=== PATIENT | female | born 1985 | race African-American/Black ===

== ENCOUNTER 2016-07-15 17:31 | Emergency (ER) | payer SELFPAY ==
[~2016-07-15] VITALS: Ht 160 cm; Wt 80.7 kg
[~2016-07-15 17:31] MED LIST: ABILIFY; ACHD5005 PO; ACYC200C PO; ACYC30OI TP; AGM875T PO; ALBU0.8322 IH; ALBU8.5H2 IH; AMOX500C2 PO; AMOX875T2 PO; ASEN5TAB7 SL; AZIT-21 PO; B12; BUTA1CAP39 PO; BUTA1CAP45 PO; BUTA1TAB46 PO; CEPH500C PO; CLIN300C11 PO; CLON0.5T3 PO; CODE-54 PO; CRS350T PO; CYCLOBENZAPR; DIAZ-345 PO; DIAZ10TA PO; DICL75TA2 PO; DIPH25CA79 PO; FRS325T PO; HYDR-1231 PO; HYDR-2890 PO; HYDR-3456 PO; HYDR-3714 PO; HYDR-3820 PO; HYDR-757 PO; HYDR1CAP2 PO; HYDR1TAB PO; HYDR473S16 PO; HYDR50CA PO; LATUDA; LIDO15SO2 MM; LURA20TA PO; LURA40TA PO; METH4TAB PO; MMT17NA NS; MUPI15CR11 TP; MUPI1OIN6 TP; OLN10T PO; ONDA-42 SL; ONDA4TAB8 PO; OXYC-188 PO; PANT40TA2 PO; PENI500T PO; PREN-102 PO; PREN1TAB39 PO; PREN1TAB71 PO; PRENATAL VITAMINS; PSEU120T16 PO; SERT50TA2 PO; SMTR50T PO; SULF1TAB35 PO; SULF1TAB38 PO; TR1O15 TOP; TR1O15 TP; TRAM-42 PO; TRAM50TA2 PO; TRIA16.5 NS; TRM50T PO; VALA10004 PO; [UNRECOGNIZED DRUG - CODE] PO
--- NOTE | 2016-07-15 18:23 | ED General ---
General Chief Complaint: General Problems/Pain Stated Complaint: POSSIBLE SPIDER BITE,SOA,DIFFICULTY SWALLOWING Nursing Triage Note: AMB TO ROOM C/O SPIDER BITE,SORE THROAT Nursing Sepsis Screen: No Definite Risk Source of Information: Patient, Other (friend) Exam Limitations: Other (drowsy and sedated) History of Present Illness Time Seen by Provider: 18:03 Initial Comments 30 yo female patient presents to the ED with c/o sore throat and possible spider bite. patient states she was recently incarcerated and noticed having a "spider bite" on the back x5 days. Tried "squeezing it at home and got a little bit of green fluid." States another inmate had strep throat while she was incarcerated. Patient is very drowsy and sedated, but is awake. Decreased rate of speech. Patient states she took 25 mg of benadryl at a friend's house and this is causing her to be sleepy. Timing/Duration: 4-5 Days, Getting Worse Modifying Factors: worse with Other (worse with palpation) Allergies and Home Medications Allergies Coded Allergies: ibuprofen (Unverified Allergy, Unknown, STOMACH PAIN, VOMITING, RASH IN THROAT, 07/19/14) shellfish derived (Verified Allergy, Unknown, 10/19/12) Home Medications Acyclovir 30 Gm Oint #1 30 GM TP Q4H Prescribed by: GENIA VENEGAS on 03/24/16106 Butalb/Acetaminophen/Caffeine 1 Each Capsule #10 1 EACH PO Q6H PRN PRN HEADACHE Prescribed by: OTILIO CORTES on 02/17/16 1425 Cephalexin 500 Mg Capsule #21 500 MG PO TID Prescribed by: SCOTTY MARQUES on 03/20/16 1409 Cephalexin 500 Mg Capsule #21 500 MG PO TID Prescribed by: OTILIO CORTES on 07/15/16 1844 Diclofenac Sodium 75 Mg Tablet.dr 75 MG PO DAILY (Reported) Hydrocodone/Acetaminophen 1 Each Tablet 1 EACH PO Q6H PRN PRN PAIN (Reported) Methylprednisolone 4 Mg Tab.ds.pk #1 4 MG PO UD Prescribed by: GENIA VENEGAS on 03/24/16106 Mupirocin 1 Gm Oin.pf.winston #22 1 GM TP TID Prescribed by: GENIA VENEGAS on 03/24/16106 Mupirocin Calcium 15 Gm Cream..g. #1 15 GM TP BID Prescribed by: SCOTTY MARQUES on 03/20/16 140 Sulfamethoxazole/Trimethoprim 1 Each Tablet #20 1 EACH PO BID Prescribed by: SCOTTY MARQUES on 03/20/16 1409 Sulfamethoxazole/Trimethoprim 1 Each Tablet #14 1 EACH PO BID Prescribed by: OTILIO CORTES on 07/15/16 1844 Valacyclovir HCl 1,000 Mg Tablet #30 1,000 MG PO TID Prescribed by: GENIA VENEGAS on 03/24/16 0107 Constitutional: No chills, No diaphoresis, No fever, No malaise EENTM: nose congestion throat painNo mouth pain, No mouth swelling, No nose pain, No throat swelling Respiratory: cough phlegmNo short of breath, No stridor, No wheezing Cardiovascular: no symptoms reported Gastrointestinal: No abdominal pain, No constipation, No diarrhea, loss of appetite nauseaNo vomiting Genitourinary: no symptoms reported Musculoskeletal: no symptoms reported Skin: see HPI change in color (erythema rt mid back) lesions (possible spider bite of the back) Psychiatric/Neurological: Denies Headache, Denies Numbness, Denies Paresthesia , Denies Tingling, Denies Weakness All Other Systems Reviewed Negative Unless Noted: Yes (Negative excepted noted.) Past Luzsnzm-Hixifb-Xozlnv Hx Patient Social History Alcohol Use: Denies Use Recreational Drug Use: No (tobacco occ) Smoking Status: Current Everyday Smoker Type Used: Cigarettes Former Smoker/When Quit: May 08, 2012 Recent Foreign Travel: No Contact w/Someone Who Travel: No Recent Infectious Disease Expo: No Recent Hopitalizations: No Immunizations Up To Date Tetanus Booster (TDap): Less than 5yrs (2012) Date of Influenza Vaccine: Mar 08, 2015 Seasonal Allergies Seasonal Allergies: Yes Surgeries HX Surgeries: No Respiratory Hx Respiratory Disorders: Yes Respiratory Disorders: Asthma Cardiovascular Hx Cardiac Disorders: No Neurological Hx Neurological Disorders: Yes Neurological Disorders: Headaches /Migraines Reproductive System Hx Reproductive Disorders: No Female Reproductive Disorders: Denies Genitourinary Hx Genitourinary Disorders: No Gastrointestinal Hx Gastrointestinal Disorders: No Musculoskeletal Hx Musculoskeletal Disorders: Yes (carpal tunnel syndrome bilaterally) Endocrine Hx Endocrine Disorders: No HEENT HX ENT Disorders: Yes (CHRONIC DENTAL ISSUES) Cancer Hx Cancer: No Psychosocial Hx Psychiatric Problems: Yes Behavioral Health Disorders: Anxiety, Depression Integumentary HX Skin/Integumentary Disorder: Yes Skin/Integumentary Disorders: Eczema Blood Transfusions Hx Blood Disorders: No Reviewed Nursing Assessment Reviewed/Agree w Nursing PMH: Yes Family Medical History Significant Family History: No Pertinent Family Hx Family Medial History: Patient reports no known family medical history. Physical Exam Vital Signs Vital Sign - Last 12Hours 07/15/16 17:33 Temp 98.2 Pulse 93 Resp 18 B/P 142/111 Capillary Refill : Less Than 3 Seconds General Appearance: No Apparent Distress WD/WN Other (awake, but drowsy and sedated. decreased rate of speech.(patient reports this is due to benadryl 25 mg taken at a friend's house)) HEENT: PERRL/EOMI TMs Normal Pharyngeal ErythemaNo Tonsillar Exudate, Tonsillar Enlargement Other ((+) nasal congestion) Neck: Full Range of Motion Non Tender Supple Lymphadenopathy (L) (anterior cervical lymphadenopathy.) Lymphadenopathy (R) (anterior cervical lymphadenopathy.) Respiratory: Lungs Clear Normal Breath Sounds No Respiratory Distress Cardiovascular: Regular Rate, Rhythm No Murmur Gastrointestinal: Normal Bowel Sounds Non Tender SoftNo Distended Back: Other (1x2 cm area of erythema rt low back with central scab. minimal induration noted. no active bleeding or drainage. no fluctuance noted.) Extremity: Normal Capillary Refill Normal Inspection No Pedal Edema Neurologic/Psychiatric: Oriented x3 Normal Mood/Affect Other (awake, but drowsy and sedated. decreased rate of speech.(patient reports this is due to benadryl 25 mg taken at a friend's house)) Skin: Normal Color Warm/Dry Other (1x2 cm area of erythema rt low back with central scab. minimal induration noted. no active bleeding or drainage. no fluctuance noted.) Progress/Results/Core Measures Results/Orders My Orders Orders-OTILIO CORTES Hydrocodone/Apap 5/325 Tablet (Lortab 5 (07/15/16 18:39) Vital Signs/I&O Vital Sign - Last 12Hours 07/15/16 17:33 Temp 98.2 Pulse 93 Resp 18 B/P 142/111 Blood Pressure Mean: 121 Departure Communication Progress Notes patient seen and evaluated. plan for dsch to home with bactrim ds for cellulitis of the back and keflex for pharyngitis. Patient requesting a Rx for pain medication to be sent home with her. Patient instructed to f/u with [facility] for pain medication prescriptions. Patient given 1 dose of lortab in the ED prior to [facility]. Impression Impression: Primary Impression: Cellulitis of lower back Additional Impression: Pharyngitis Qualified Code: J02.9 - Acute pharyngitis, unspecified Disposition: HOME, SELF-CARE Condition: Improved Departure-Patient Inst. Decision time for Depature: 18:42 Referrals: [facility] (PCP/Family) Primary Care Physician Patient Instructions: Cellulitis (Skin Infection), Adult (DC), Strep Throat (DC ) Add. Discharge Instructions: All discharge instructions reviewed with patient and/or family. Voiced understanding. Medications as instructed. Tylenol extra strength over-the- counter as directed for pain. Follow-up with your family practitioner for recheck as an outpatient and for all pain medication prescriptions. Ice packs or a heating pad as needed for pain. Shower with antibacterial soap. Salt water gargles as needed. Throat lozenges or throat sprays [id number] as needed for throat pain. Return to the emergency department for worsened symptoms or any other concerns. Scripts Cephalexin 500 Mg [id number] Mg PO TID #21 CAP Ref 0 Prov:OTILIO CORTES 07/15/16 Sulfamethoxazole/Trimethoprim (Bactrim Ds Tablet)1 Each Tablet1 Each PO BID #14 TAB Ref 0 Prov:OTILIO CORTES 07/15/16 Copy Copies To 1: JOZEF ROSARIO GRETCHEN L PA Jul 15, 2016 18:23
[2016-07-15] MEDS ORDERED: HYDROcodone/APAP 5 MG/325 MG (LORTAB) TAB PO STA (18:39)
[2016-07-15] MEDS ORDERED: SULF1TAB35 PO (18:44)
[2016-07-15] MEDS ORDERED: CEPH500C PO (18:44)
[2016-07-15 19:00] VITALS: BP 145/100
== END 2016-07-15 19:00 | disposition home or self-care (01) ==
LOC: EDUNIT# 17:31 → ER 17:33
DX: L03.312 Cellulitis of back [any part except buttock and flank] (principal); R59.0 Localized enlarged lymph nodes; J02.9 Acute pharyngitis, unspecified; F17.210 Nicotine dependence, cigarettes, uncomplicated
CPT/HCPCS: 99281

== ENCOUNTER 2016-07-26 18:23 | Emergency (ER) | payer SELFPAY ==
[~2016-07-26] VITALS: Ht 160 cm; Wt 122.5 kg
[2016-07-26] MEDS ORDERED: TETRACAINE 0.5% OPHTH SOLN 5 ML BTL OU STA (20:35)
--- NOTE | 2016-07-26 20:43 | ED General ---
General Chief Complaint: Oral/Throat Problems Stated Complaint: COUGH/SORE THROAT Nursing Triage Note: Pt. advised she has had a sore throat that has become progressively worse over the past several days. She advises difficulty swallowing and states she has not been able to eat anything. Nursing Sepsis Screen: Possible Sepsis Risk Source of Information: Patient Exam Limitations: No Limitations History of Present Illness Time Seen by Provider: 19:22 Initial Comments This 31-year-old woman presents to the emergency room complaining of sore throat , cough, migraine, and pleuritic chest pain for about 3 days. She states she hasn't been able to eat because of throat pain. Rapid flu and strep tests were negative. There is an incidental finding of a blue foreign object in the right ear canal. Patient also notes that she has new lower extremity edema and calf pain in the left leg. Allergies and Home Medications Allergies Coded Allergies: ibuprofen (Unverified Allergy, Unknown, STOMACH PAIN, VOMITING, RASH IN THROAT, 07/19/14) shellfish derived (Verified Allergy, Unknown, 10/19/12) Home Medications Acyclovir 30 Gm Oint #1 30 GM TP Q4H Prescribed by: GENIA VENEGAS on 03/24/16106 Amoxicillin 500 Mg Capsule #40 1,000 MG PO BID Prescribed by: MARTHA MEYERS on 07/27/16 0419 Butalb/Acetaminophen/Caffeine 1 Each Capsule #10 1 EACH PO Q6H PRN PRN HEADACHE Prescribed by: OTILIO CORTES on 02/17/16 1425 Cephalexin 500 Mg Capsule #21 500 MG PO TID Prescribed by: SCOTTY MARQUES on 03/20/16 1409 Cephalexin 500 Mg Capsule #21 500 MG PO TID Prescribed by: OTILIO CORTES on 07/15/16 1844 Diclofenac Sodium 75 Mg Tablet.dr 75 MG PO DAILY (Reported) Hydrocodone/Acetaminophen 1 Each Tablet 1 EACH PO Q6H PRN PRN PAIN (Reported) Methylprednisolone 4 Mg Tab.ds.pk #1 4 MG PO UD Prescribed by: GENIA VENEGAS on 03/24/16106 Mupirocin 1 Gm Oin.pf.winston #22 1 GM TP TID Prescribed by: GENIA VENEGAS on 03/24/16106 Mupirocin Calcium 15 Gm Cream..g. #1 15 GM TP BID Prescribed by: SCOTTY MARQUES on 03/20/16 140 Sulfamethoxazole/Trimethoprim 1 Each Tablet #20 1 EACH PO BID Prescribed by: SCOTTY MARQUES on 03/20/16 140 Sulfamethoxazole/Trimethoprim 1 Each Tablet #14 1 EACH PO BID Prescribed by: OTILIO CORTES on 07/15/16 184 Tramadol HCl 50 Mg Tablet #10 50 MG PO Q6H PRN PRN PAIN Prescribed by: MARTHA MEYERS on 07/27/16 0419 Valacyclovir HCl 1,000 Mg Tablet #30 1,000 MG PO TID Prescribed by: GENIA VENEGAS on 03/24/16 0107 Constitutional: no symptoms reported EENTM: see HPI Respiratory: see HPI Cardiovascular: no symptoms reported Gastrointestinal: see HPI Genitourinary: no symptoms reported : No Musculoskeletal: muscle pain Skin: no symptoms reported Psychiatric/Neurological: No Symptoms Reported Hematologic/Lymphatic: No Symptoms Reported Past Wbqhuwb-Oedxmg-Bauway Hx Patient Social History Type Used: Cigarettes Former Smoker/When Quit: May 08, 2012 Recent Foreign Travel: No Contact w/Someone Who Travel: No Recent Infectious Disease Expo: No Recent Hopitalizations: No Immunizations Up To Date Tetanus Booster (TDap): Less than 5yrs Date of Influenza Vaccine: Mar 08, 2015 Seasonal Allergies Seasonal Allergies: Yes Surgeries HX Surgeries: No Respiratory Hx Respiratory Disorders: Yes Respiratory Disorders: Asthma Cardiovascular Hx Cardiac Disorders: No Neurological Hx Neurological Disorders: Yes Neurological Disorders: Headaches /Migraines Reproductive System Hx Reproductive Disorders: No Female Reproductive Disorders: Denies Genitourinary Hx Genitourinary Disorders: No Gastrointestinal Hx Gastrointestinal Disorders: No Musculoskeletal Hx Musculoskeletal Disorders: Yes (carpal tunnel syndrome bilaterally) Endocrine Hx Endocrine Disorders: No HEENT HX ENT Disorders: Yes (CHRONIC DENTAL ISSUES) Cancer Hx Cancer: No Psychosocial Hx Psychiatric Problems: Yes Behavioral Health Disorders: Anxiety, Depression Integumentary HX Skin/Integumentary Disorder: Yes Skin/Integumentary Disorders: Eczema Blood Transfusions Hx Blood Disorders: No Family Medical History Significant Family History: Cancer (brain tumor) Family Medial History: Patient reports no known family medical history. Physical Exam Vital Signs Vital Sign - Last 12Hours 07/26/16 19:00 Temp 99.4 Pulse 100 Resp 16 B/P 171/112 Pulse Ox 98 O2 Delivery Room Air Capillary Refill : Less Than 3 Seconds General Appearance: WD/WN Mild Distress HEENT: PERRL/EOMI Normal ENT Inspection Pharynx Normal TM Abnormal (R) (blue foreign body in the ear canal) Neck: Normal Inspection Supple Respiratory: Chest Non Tender Lungs Clear Normal Breath Sounds No Accessory Muscle Use No Respiratory Distress Cardiovascular: Regular Rate, Rhythm No Edema No Murmur Gastrointestinal: Normal Bowel Sounds Non Tender Soft Back: Normal Inspection Extremity: Other (left lower extremity with moderate pitting edema and tenderness in the calf. Right lower extremity shows exhibited a skilled changes.) Neurologic/Psychiatric: Alert Oriented x3 No Motor/Sensory Deficits Normal Mood/Affect signaler II-XII Norm as Tested Skin: Normal Color Warm/Dry Rash (eczema) Additional Procedures : Progress Right ear was anesthetized with tetracaine. Under direct visualization the foreign body which has the appearance of earplug tips was removed with alligator forceps. Patient tolerated the procedure quite well. Progress/Results/Core Measures Results/Orders Lab Results Laboratory Tests Test 07/26/16 18:57 07/26/16 20:50 Range/Units Group A Streptococcus Screen NEGATIVE NEGATIVE Anion Gap 9 5-14 MMOL/L BUN/Creatinine Ratio 13 Basophils # (Auto) 0.0 0.0-0.1 10^3/uL Basophils (%) (Auto) 1 0-10 % Blood Urea Nitrogen 10 7-18 MG/DL Calcium Level 9.0 8.5-10.1 MG/DL Carbon Dioxide Level 25 21-32 MMOL/L Chloride Level 106 98-107 MMOL/L Creatinine 0.80 0.60-1.30 MG/DL D-Dimer 0.53 H 0.00-0.49 UG/ML Eosinophils # (Auto) 0.1 0.0-0.3 10^3/uL Eosinophils (%) (Auto) 3 0-10 % Estimat Glomerular Filtration Rate > 60 Glucose Level 102 70-105 MG/DL Hematocrit 33 L 35-52 % Hemoglobin 10.8 L 11.5-16.0 G/DL Lymphocytes # (Auto) 1.6 1.0-4.0 X 10^3 Lymphocytes (%) (Auto) 37 12-44 % Mean Corpuscular Hemoglobin 28 25-34 PG Mean Corpuscular Hemoglobin Concent 32 32-36 G/DL Mean Corpuscular Volume 87 80-99 FL Mean Platelet Volume 9.4 7.4-10.4 FL Monocytes # (Auto) 0.3 0.0-1.0 X 10^3 Monocytes (%) (Auto) 6 0-12 % Neutrophils # (Auto) 2.2 1.8-7.8 X 10^3 Neutrophils (%) (Auto) 53 42-75 % Platelet Count 300 130-400 10^3/uL Potassium Level 3.8 3.6-5.0 MMOL/L Red Blood Count 3.83 L 4.35-5.85 10^6/uL Red Cell Distribution Width 13.4 10.0-14.5 % Sodium Level 140 135-145 MMOL/L White Blood Count 4.2 L 4.3-11.0 10^3/uL Micro Results Microbiology 07/26/16 Influenza Types A,B Antigen ([place]) - Final, Complete My Orders Orders-MARTHA ESCOBAR MD Rapid Strep A Screen (07/26/16 19:22) Influenza A And B Antigens (07/26/16 19:22) Basic Metabolic Panel (07/26/16 20:35) Cbc With Automated Diff (07/26/16 20:35) Fibrin Degradation Products (07/26/16 20:35) Saline Lock/Iv-Start (07/26/16 20:35) Tetracaine 0.5% Ophth Soln (Tetravisc 0. (07/26/16 20:35) Ketorolac Injection (Toradol Injection) (07/26/16 20:45) Chest Pa/Lat (2 View) (07/26/16 20:35) Us Venous Lower Ext Camilo (07/26/16 22:14) Lorazepam Tablet (Ativan Tablet) (07/26/16 23:45) Lorazepam Tablet (Ativan Tablet) (07/26/16 23:54) Lung Scan V And P (Vq) (07/27/16 22:14) Amoxicillin Capsule (Polymox Capsule) (07/27/16 04:15) Rx-Tramadol Hcl (Rx-Ultram) (07/27/16 04:15) Medications Given in ED Current Medications Medications Dose Ordered Sig/Marialeena Route Start Time Stop Time Status Last Admin Dose Admin Amoxicillin 1,000 mg ONCE ONCE PO 07/27/16 04:15 07/27/16 04:16 DC 2/19/17 04:23 1,000 MG Ketorolac Tromethamine 30 mg ONCE ONCE IVP 07/26/16 20:45 07/26/16 20:46 DC 07/26/16 20:47 30 MG Lorazepam 1 mg ONCE ONCE PO 07/26/16 23:45 07/26/16 23:46 DC 07/26/16 23:56 1 MG Vital Signs/I&O Vital Sign - Last 12Hours 07/26/16 07/26/16 07/26/16 07/27/16 20:47 21:00 23:00 01:05 Temp 99.4 98.9 Pulse 89 94 98 Resp 16 16 18 B/P 168/98 171/102 167/100 Pulse Ox 99 97 98 O2 Delivery Room Air Room Air Room Air 07/27/16 04:29 Temp 97.8 Pulse 92 Resp 18 Pulse Ox 97 Blood Pressure Mean: 131 Progress Note #1: Time: 20:41 Progress Note rapid influenza and strep test were negative. Patient seen and examined. Patient is found to have new left ankle swelling with tenderness in the left calf. She also describes pain in the chest with inspiration. An IV and blood draw with d-dimer was ordered. Toradol was ordered for headache and myalgia. Patient reports allergy to ibuprofen but tolerates Toradol. Review of her chart demonstrates administration of Toradol in the past. An incidental finding of foreign-body in the right ear canal was identified on exam. The canal being numbed with tetracaine and the foreign body removed. Chest x-ray was also ordered to evaluate for the chest pain on inspiration. Progress Note #2: Time: 22:15 Progress Note Patient's d-dimer was mildly elevated. Options were discussed. Patient wishes to pursue rule out of DVT. 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 A VQ scan was ordered as an alternative. Bilateral lower extremity ultrasounds were also ordered. Patient was given Toradol for pain which was giving her some relief. Right ear canal was filled with tetracaine and plastic foreign body was removed with alligator forceps. Progress Note #3: Progress Note Patient's lower extremity ultrasounds and a VQ scan eventually returned negative. Patient then complained of intense pain along the left jaw. Examination revealed a tender jawline beneath a left lower molar. There was fullness of this area but no fluctuant abscess to be drained. A take-home packet of tramadol was dispensed for additional pain relief. first dose of antibiotics was given in the ER. Diagnostic Imaging Diagonstic Imaging: Xray Plain Films/CT/US/NM/MRI: chest Comments chest x-ray viewed by me and report reviewed. See report below: NAME: EVERT LARKIN [facility] REC#: [id number] PT STATUS: REG ER : 1985 PHYSICIAN: MARTHA ESCOBAR MD ADMIT DATE: 07/26/16/ER Signed Date of Exam: 07/26/16 CHEST PA/LAT (2 VIEW) INDICATION: Sore throat COMPARISON: None FINDINGS: Frontal and lateral views of the chest demonstrate normal heart size and pulmonary vascularity. The lungs are clear. There are no signs of infiltrate, pleural effusions or pneumothoraces. The visualized osseous structures show no acute abnormalities. IMPRESSION: 1. No acute process. No signs of infiltrates, effusions or pneumothoraces. Dictated by: Dictated on workstation # [id number] Dict: 07/26/162109 Trans: 07/26/162157 [facility], [facility]–1983 [id number] Interpreted by: ALESSANDRA CARDONA Electronically signed by:ALESSANDRA CARDONA 07/26/162199 Diagonstic Imaging: Ultrasound Plain Films/CT/US/NM/MRI: leg Comments Venous ultrasounds of the lower extremities were discussed with the biodiesel process control technician and Stat Rad reports were reviewed. No evidence of DVT. Diagonstic Imaging: Nuclear Med Plain Films/CT/US/NM/MRI: chest Comments V/Q scan Stat Rad report reviewed. There was low probability of pulmonary embolism. Departure Impression Impression: Primary Impression: Flu-like symptoms Additional Impressions: Pleuritic chest pain Leg edema, left Ear foreign body Qualified Code: T16.1XXA - Foreign body in right ear, initial encounter Pharyngitis Qualified Code: J02.9 - Acute pharyngitis, unspecified Pain, dental Disposition: HOME, SELF-CARE Condition: Improved Departure-Patient Inst. Decision time for Depature: 03:50 Referrals: [facility] (PCP/Family) Primary Care Physician Patient Instructions: VIRAL SYNDROME Add. Discharge Instructions: Take Tylenol up to 1000 mg every 6 hours as needed for pain and fever. Follow- up with your primary care provider as needed. Drink plenty of clear liquids. For your jaw pain, complete your antibiotics as prescribed and follow-up with a dentist as soon as possible. You may take Ultram (tramadol) as prescribed for pain not controlled by Tylenol. All discharge instructions reviewed with patient and/or family. Voiced understanding. Scripts Tramadol HCl (Ultram)50 Mg Srxeuu17 Mg PO Q6H PRN PAIN #10 TAB Prov:MARTHA ESCOBAR MD 07/27/16 Amoxicillin 500 Mg Capsule1,000 Mg PO BID #40 CAP Prov:MARTHA ESCOBAR MD 07/27/16 MARTHA ESCOBAR MD Jul 26, 2016 20:43
[2016-07-26] MEDS ORDERED: KETOROLAC 30 MG/ML VIAL IVP ONE (20:45)
[2016-07-26 20:56] LABS: BASOPHILS % (AUTO) 1 % (0-10); EOSINOPHILS # (AUTO) 0.1 10^3/uL (0.0-0.3); EOSINOPHILS % (AUTO) 3 % (0-10); LYMPHOCYTES # (AUTO) 1.6 X 10^3 (1.0-4.0); LYMPHOCYTES % (AUTO) 37 % (12-44); MEAN CORPUSCULAR HEMOGLOBIN 28 PG (25-34); MEAN CORPUSCULAR HGB CONC 32 G/DL (32-36); MEAN CORPUSCULAR VOLUME 87 FL (80-99); MEAN PLATELET VOLUME 9.4 FL (7.4-10.4); MONOCYTES # (AUTO) 0.3 X 10^3 (0.0-1.0); MONOCYTES % (AUTO) 6 % (0-12); NEUTROPHILS # (AUTO) 2.2 X 10^3 (1.8-7.8); NEUTROPHILS % (AUTO) 53 % (42-75); PLATELET COUNT 300 10^3/uL (130-400); RED BLOOD COUNT 3.83 10^6/uL (4.35-5.85); RED CELL DISTRIBUTION WIDTH 13.4 % (10.0-14.5); WHITE BLOOD COUNT 4.2 10^3/uL (4.3-11.0)
[2016-07-26 21:00] VITALS: BP 168/98
--- NOTE | 2016-07-26 21:11 | Diagnostic Imaging Report ---
INDICATION: Sore throat COMPARISON: None FINDINGS: Frontal and lateral views of the chest demonstrate normal heart size and pulmonary vascularity. The lungs are clear. There are no signs of infiltrate, pleural effusions or pneumothoraces. The visualized osseous structures show no acute abnormalities. IMPRESSION: 1. No acute process. No signs of infiltrates, effusions or pneumothoraces. Dictated by: Dictated on workstation # [id number]
[2016-07-26 21:21] LABS: ANION GAP 9 MMOL/L (5-14); BLOOD UREA NITROGEN 10 MG/DL (7-18); BUN/CREATININE RATIO 13; CARBON DIOXIDE 25 MMOL/L (21-32); CHLORIDE 106 MMOL/L (98-107); GFR ESTIMATED > 60; GLUCOSE 102 MG/DL (70-105); POTASSIUM 3.8 MMOL/L (3.6-5.0); SODIUM 140 MMOL/L (135-145)
[2016-07-26 23:00] VITALS: BP 171/102
[2016-07-26] MEDS ORDERED: LORazepam 1 MG (ATIVAN) TAB PO ONE (23:45)
[2016-07-26] MEDS ORDERED: LORazepam 0.5 MG (ATIVAN) TABLET ONE (23:54)
[2016-07-27 01:05] VITALS: BP 167/100
[2016-07-27] MEDS ORDERED: RX-TRAMADOL 50 MG (ULTRAM) TAB PPK#4 PO STA (04:15)
[2016-07-27] MEDS ORDERED: AMOXICILLIN 500 MG (POLYMOX) CAP PO ONE (04:15)
[2016-07-27] MEDS ORDERED: AMOX500C2 PO (04:19)
[2016-07-27] MEDS ORDERED: TRAM-42 PO (04:19)
[2016-07-27 04:29] VITALS: BP 162/99
--- NOTE | 2016-07-27 08:11 | Diagnostic Imaging Report ---
Technique: Grayscale, pulsed and color Doppler imaging of the bilateral lower extremity. Indication: Elevated d-dimer. Leg pain. Findings: The bilateral common femoral, femoral and popliteal veins are patent without evidence of DVT. Visualized aspects of the bilateral greater saphenous, deep femoral, posterior tibial and peroneal veins are also patent. All of the evaluated deep venous structures demonstrate normal compressibility and augmentation where applicable. Impression: No deep venous thrombosis (DVT) in either lower extremity. Dictated by: Dictated on workstation # [id number]
--- NOTE | 2016-07-27 09:18 | Diagnostic Imaging Report ---
INDICATION: Shortness of breath. TECHNIQUE: 44 mCi tech 99M DTPA given for ventilation phase. 1.1 mCi of the tech 99M actually inhaled by patient. 5.2 mCi tech 99 MAA given IV for perfusion. FINDINGS: Perfusion images only for review shows uniform distribution throughout both lungs. There are no segmental or subsegmental defects. IMPRESSION: Normal perfusion study considered low probability for PE. Dictated by: Dictated on workstation # [id number]
== END 2016-07-27 04:29 | disposition home or self-care (01) ==
LOC: EDUNIT# 18:23 → ER 18:24
DX: J11.1 Influenza due to unidentified influenza virus with other respiratory manifestations (principal); R07.81 Pleurodynia; R60.0 Localized edema; J02.9 Acute pharyngitis, unspecified; K08.89 Other specified disorders of teeth and supporting structures; T16.1XXA Foreign body in right ear, initial encounter
CPT/HCPCS: 36415; 71020; 78582; 80048; 85025; 85379; 87430; 87804; 93970; 96361; 96374; 96375

== ENCOUNTER 2017-01-28 00:30 | Emergency (ER) | payer SELFPAY ==
[~2017-01-28] VITALS: Ht 160 cm; Wt 122.5 kg
[2017-01-28] MEDS ORDERED: RX-MUPIROCIN (BACTROBAN) 2% OINT 22 GM TUBE TOP STA (01:10)
[2017-01-28] MEDS ORDERED: SULF1TAB35 PO (01:14)
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
[2017-01-28] MEDS ORDERED: TETANUS,DIPTH,PERTUSS P/F (BOOSTRIX) 0.5 ML VIAL IM ONE (01:15)
[2017-01-28] MEDS ORDERED: TRIM/SULFAMETH 160/800 (SEPTRA DS) TAB PO ONE (01:15)
[2017-01-28 01:22] VITALS: BP 147/100
== END 2017-01-28 01:19 | disposition home or self-care (01) ==
LOC: EDUNIT# 00:30 → ER 00:34
DX: S81.801A Unspecified open wound, right lower leg, initial encounter (principal); L03.115 Cellulitis of right lower limb; F41.9 Anxiety disorder, unspecified; F31.9 Bipolar disorder, unspecified; G43.909 Migraine, unspecified, not intractable, without status migrainosus; J45.909 Unspecified asthma, uncomplicated; F17.210 Nicotine dependence, cigarettes, uncomplicated; Z23 Encounter for immunization; Z80.9 Family history of malignant neoplasm, unspecified; X58.XXXA Exposure to other specified factors, initial encounter
CPT/HCPCS: 90471; 90715; 99284

== ENCOUNTER 2017-02-21 14:47 | Emergency (ER) | payer SELFPAY ==
[~2017-02-21] VITALS: Ht 160 cm; Wt 105.2 kg
[2017-02-21 15:03] LABS: MEAN PLATELET VOLUME 9.7 FL (7.4-10.4); RED BLOOD COUNT 3.89 10^6/uL (4.35-5.85); RED CELL DISTRIBUTION WIDTH 14.5 % (10.0-14.5); WHITE BLOOD COUNT 8.1 10^3/uL (4.3-11.0)
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
[2017-02-21 15:22] LABS: ALANINE AMINOTRANSFERASE 9 U/L (0-55); ALBUMIN 4.1 GM/DL (3.2-4.5); ALCOHOL < 10 MG/DL (<10); ANION GAP 7 MMOL/L (5-14); ASPARTATE AMINO TRANSFERASE 14 U/L (5-34); BILIRUBIN,DIRECT 0.2 MG/DL (0.0-0.3); BILIRUBIN,INDIRECT 0.3 MG/DL; BILIRUBIN,TOTAL 0.5 MG/DL (0.1-1.0); BLOOD UREA NITROGEN 9 MG/DL (7-18); BUN/CREATININE RATIO 11; CALCIUM 9.5 MG/DL (8.5-10.1); CARBON DIOXIDE 25 MMOL/L (21-32); CHLORIDE 107 MMOL/L (98-107); CREATININE SERUM 0.84 MG/DL (0.60-1.30); GFR ESTIMATED > 60; GLUCOSE 101 MG/DL (70-105); POTASSIUM 3.6 MMOL/L (3.6-5.0); SODIUM 139 MMOL/L (135-145); TOTAL PROTEIN 8.2 GM/DL (6.4-8.2)
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
[2017-02-21 16:19] VITALS: BP 140/91
[2017-02-21] MEDS ORDERED: fentaNYL INJECTION 100 MCG/2 ML AMP IVP STA ×2 (16:37→18:32)
[2017-02-21 16:55] LABS: MYOGLOBIN SERUM 112.6 NG/ML (10.0-92.0)
[2017-02-21 18:38] VITALS: BP 143/92
== END 2017-02-21 18:38 | disposition short-term general hospital (02) ==
LOC: EDUNIT# 14:47 → ER 14:48
DX: T79.A21A Traumatic compartment syndrome of right lower extremity, initial encounter (principal); G43.909 Migraine, unspecified, not intractable, without status migrainosus; J45.909 Unspecified asthma, uncomplicated; F41.9 Anxiety disorder, unspecified; F32.9 Major depressive disorder, single episode, unspecified; F12.10 Cannabis abuse, uncomplicated; Z77.22 Contact with and (suspected) exposure to environmental tobacco smoke (acute) (chronic); V03.90XA Pedestrian on foot injured in collision with car, pick-up truck or van, unspecified whether traffic or nontraffic accident, initial encounter
CPT/HCPCS: 36415; 73562; 73590; 73630; 80048; 80076; 80320; 82550; 83874; 84703; 85027; 99285

== ENCOUNTER 2019-09-13 06:38 | Emergency (ER) | payer MEDICAID ==
[~2019-09-13] VITALS: Ht 172 cm; Wt 113.0 kg
[~2019-09-13 06:38] MED LIST changes: +ACHYD1T PO; -HYDR-3820 PO; -LIDO15SO2 MM; +LIDO20SO23 MM; -TRAM50TA2 PO
[2019-09-13 06:55] LABS: BASOPHILS % (AUTO) 0 % (0-10); EOSINOPHILS # (AUTO) 0.3 10^3/uL (0.0-0.3); EOSINOPHILS % (AUTO) 4 % (0-10); HEMATOCRIT 34 % (35-52); HEMOGLOBIN 10.7 G/DL (11.5-16.0); LYMPHOCYTES # (AUTO) 2.3 X 10^3 (1.0-4.0); LYMPHOCYTES % (AUTO) 33 % (12-44); MEAN CORPUSCULAR HEMOGLOBIN 28 PG (25-34); MEAN CORPUSCULAR HGB CONC 31 G/DL (32-36); MEAN CORPUSCULAR VOLUME 89 FL (80-99); MEAN PLATELET VOLUME 11.2 FL (7.4-10.4); MONOCYTES # (AUTO) 0.4 X 10^3 (0.0-1.0); MONOCYTES % (AUTO) 5 % (0-12); NEUTROPHILS % (AUTO) 57 % (42-75); PLATELET COUNT 291 10^3/uL (130-400); RED CELL DISTRIBUTION WIDTH 13.6 % (10.0-14.5); WHITE BLOOD COUNT 6.9 10^3/uL (4.3-11.0)
[2019-09-13 07:03] LABS: CHLORIDE 109 MMOL/L (98-107); POTASSIUM 3.1 MMOL/L (3.6-5.0); SODIUM 145 MMOL/L (135-145)
[2019-09-13 07:04] LABS: CALCIUM 9.3 MG/DL (8.5-10.1)
[2019-09-13 07:06] LABS: GLUCOSE 103 MG/DL (70-105); TOTAL PROTEIN 7.9 GM/DL (6.4-8.2)
[2019-09-13 07:07] LABS: BILIRUBIN,TOTAL 0.3 MG/DL (0.1-1.0); CARBON DIOXIDE 22 MMOL/L (21-32)
[2019-09-13 07:09] LABS: ALKALINE PHOSPHATASE 79 U/L (40-136); CREATININE SERUM 0.84 MG/DL (0.60-1.30); GFR ESTIMATED > 60
[2019-09-13 07:10] LABS: BUN/CREATININE RATIO 10
[2019-09-13 07:12] LABS: ALANINE AMINOTRANSFERASE 8 U/L (0-55); LIPASE 23 U/L (8-78)
[2019-09-13] MEDS ORDERED: LACTATED RINGERS 1,000 ML IV ONE (07:16)
--- NOTE | 2019-09-13 07:16 | ED Abdominal Pain ---
General Chief Complaint: Abdominal/GI Problems Stated Complaint: ABD PAIN Nursing Triage Note: TO ED ROOM 7 [facility] WITH C/O RUQ PAIN. WAS GIVEN 4MG ZOFRAN IV FOR NAUSEA ENROUTE AND STATES NO NAUSEA ON ARRIVAL. RATES ABD PAIN 1/10 ON ARRIVAL. POOR HX R/T HX OF STROKE. Sepsis Screen: No Definite Risk Source of Information: Patient Exam Limitations: No Limitations History of Present Illness Date Seen by Provider: Sep 13, 2019 Time Seen by Provider: 06:41 Initial Comments This 34-year-old woman presents to the emergency room via EMS with complaints of right-sided abdominal pain that started abruptly while having a bowel movement. By the time she arrives to the emergency room her pain has decreased from 10/10 down to 1/10. She was nauseated and received Zofran 4 mg by EMS. Nausea has resolved. She has had a stroke with chronic right-sided deficits and speech deficits. Communication is slow and minimal due to expressive aphasia. She is afebrile. She felt fine prior to the bowel movement this morning. Allergies and Home Medications Allergies Coded Allergies: ibuprofen (Unverified Allergy, Unknown, STOMACH PAIN, VOMITING, RASH IN THROAT, 07/19/14) shellfish derived (Verified Allergy, Unknown, 10/19/12) Home Medications Acyclovir 30 Gm Oint, 30 GM TP Q4H Prescribed by: GENIA VENEGAS on 03/24/16106 Amoxicillin 500 Mg Capsule, 1,000 MG PO BID Prescribed by: MARTHA MEYERS on 07/27/16 0419 Butalb/Acetaminophen/Caffeine 1 Each Capsule, 1 EACH PO Q6H PRN for HEADACHE Prescribed by: OTILIO CORTES on 02/17/16 1425 Cephalexin 500 Mg Capsule, 500 MG PO TID Prescribed by: SCOTTY MARQUES on 03/20/16 1409 Cephalexin 500 Mg Capsule, 500 MG PO TID Prescribed by: OTILIO CORTES on 07/15/16 1844 Diclofenac Sodium 75 Mg Tablet.dr, 75 MG PO DAILY, (Reported) Hydrocodone Bit/Acetaminophen 1 Each Tablet, 1 EACH PO Q6H PRN for PAIN, (Reported) Methylprednisolone 4 Mg Tab.ds.pk, 4 MG PO UD Prescribed by: GENIA VENEGAS on 03/24/16106 Mupirocin 1 Gm Oin.pf.winston, 1 GM TP TID Prescribed by: GENIA VENEGAS on 03/24/16106 Mupirocin Calcium 15 Gm Cream..g., 15 GM TP BID Prescribed by: SCOTTY MARQUES on 03/20/16 140 Sulfamethoxazole/Trimethoprim 1 Each Tablet, 1 EACH PO BID Prescribed by: SCOTTY MARQUES on 03/20/16 140 Sulfamethoxazole/Trimethoprim 1 Each Tablet, 1 EACH PO BID Prescribed by: OTILIO CORTES on 07/15/16 1844 Sulfamethoxazole/Trimethoprim 1 Each Tablet, 1 EACH PO BID Prescribed by: MARTHA MEYERS on 01/28/17 0114 Tramadol HCl 50 Mg Tablet, 50 MG PO Q6H PRN for PAIN Prescribed by: MARTHA MEYERS on 07/27/16 0419 Valacyclovir HCl 1,000 Mg Tablet, 1,000 MG PO TID Prescribed by: GENIA VENEGAS on 03/24/16 010 Patient Home Medication List Home Medication List Reviewed: Yes Review of Systems Review of Systems Constitutional: no symptoms reported EENTM: No Symptoms Reported Respiratory: No Symptoms Reported Cardiovascular: No Symptoms Reported Gastrointestinal: See HPI Genitourinary: No Symptoms Reported Musculoskeletal: no symptoms reported Skin: no symptoms reported Psychiatric/Neurological: No Symptoms Reported Endocrine: No Symptoms Reported Hematologic/Lymphatic: No Symptoms Reported Past Kuxpxbu-Tdoggl-Zsissu Hx Past Med/Social Hx: Reviewed Nursing Past Med/Soc Hx Patient Social History Alcohol Use: Denies Use Recreational Drug Use: No Smoking Status: Former Smoker Type Used: Cigarettes 2nd Hand Smoke Exposure: Yes Recent Foreign Travel: No Contact w/Someone Who Travel: No Recent Infectious Disease Expo: No Recent Hopitalizations: No Physical Abuse: No Sexual Abuse: No Mistreated: No Fear: No Immunizations Up To Date Tetanus Booster (TDap): Less than 5yrs Date of Influenza Vaccine: Mar 08, 2015 Seasonal Allergies Seasonal Allergies: Yes Past Medical History Surgeries: No Respiratory: Yes Asthma Cardiac: No Neurological: Yes Headaches /Migraines, Stroke (right-sided weakness and expressive aphasia) Reproductive Disorders: No Female Reproductive Disorders: Denies Genitourinary: No Gastrointestinal: No Musculoskeletal: Yes (carpal tunnel syndrome bilaterally) Endocrine: No Cancer: No Psychosocial: Yes Anxiety, Depression Integumentary: Yes Eczema Blood Disorders: No Family Medical History Reviewed Nursing Family Hx Patient reports no known family medical history. Cancer Physical Exam Vital Signs Vital Signs - First Documented 09/13/19 06:39 Temp 36.7 Pulse 54 Resp 16 B/P (MAP) 123/74 (90) O2 Delivery Room Air Capillary Refill : Less Than 3 Seconds Height/Weight/BMI Height: 5'3" Weight: 232lbs. oz. 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4 FL Neutrophils (%) (Auto) 57 42-75 % Lymphocytes (%) (Auto) 33 12-44 % Monocytes (%) (Auto) 5 0-12 % Eosinophils (%) (Auto) 4 0-10 % Basophils (%) (Auto) 0 0-10 % Neutrophils # (Auto) 4.0 1.8-7.8 X 10^3 Lymphocytes # (Auto) 2.3 1.0-4.0 X 10^3 Monocytes # (Auto) 0.4 0.0-1.0 X 10^3 Eosinophils # (Auto) 0.3 0.0-0.3 10^3/uL Basophils # (Auto) 0.0 0.0-0.1 10^3/uL Sodium Level 145 135-145 MMOL/L Potassium Level 3.1 L 3.6-5.0 MMOL/L Chloride Level 109 H 98-107 MMOL/L Carbon Dioxide Level 22 21-32 MMOL/L Anion Gap 14 5-14 MMOL/L Blood Urea Nitrogen 8 7-18 MG/DL Creatinine 0.84 0.60-1.30 MG/DL Estimat Glomerular Filtration Rate > 60 BUN/Creatinine Ratio 10 Glucose Level 103 70-105 MG/DL Calcium Level 9.3 8.5-10.1 MG/DL Corrected Calcium 9.3 8.5-10.1 MG/DL Total Bilirubin 0.3 0.1-1.0 MG/DL Aspartate Amino Transf (AST/SGOT) 11 5-34 U/L Alanine Aminotransferase (ALT/SGPT) 8 0-55 U/L Alkaline Phosphatase 79 40-136 U/L C-Reactive Protein High Sensitivity 0.70 H 0.00-0.50 MG/DL Total Protein 7.9 6.4-8.2 GM/DL Albumin 4.0 3.2-4.5 GM/DL Lipase 23 8-78 U/L Serum Test, Qualitative NEGATIVE NEGATIVE Urine Color YELLOW Urine Clarity CLEAR Urine pH 6.0 5-9 Urine Specific [place] >=1.030 1.016-1.022 Urine Protein TRACE H NEGATIVE Urine Glucose (UA) NEGATIVE NEGATIVE Urine Ketones TRACE H NEGATIVE Urine Nitrite NEGATIVE NEGATIVE Urine Bilirubin 1+ H NEGATIVE Urine Urobilinogen 2.0 < = 1.0 MG/DL Urine Leukocyte Esterase TRACE H NEGATIVE Urine RBC (Auto) TRACE-I NEGATIVE Urine RBC 2-5 H /HPF Urine WBC 2-5 /HPF Urine Squamous Epithelial Cells 5-10 /HPF Urine Crystals NONE /LPF Urine Bacteria TRACE /HPF Urine Casts NONE /LPF Urine Mucus LARGE H /LPF Urine Culture Indicated YES My Orders Orders - MARTHA ESCOBAR MD Cbc With Automated Diff (09/13/19 06:46) Comprehensive Metabolic Panel (09/13/19 06:46) Hs C Reactive Protein (09/13/19 06:46) Lipase (09/13/19 06:46) Ua Culture If Indicated (09/13/19 06:46) Ed Iv/Invasive Line Start (09/13/19 06:46) Hcg,Qualitative Serum (09/13/19 06:50) Lactated Ringers (Lr 1000 Ml Iv Solution (09/13/19 07:16) Urine Culture (09/13/19 08:06) Medications Given in ED Current Medications Medications Dose Ordered Sig/Mariaelena Route Start Time Stop Time Status Last Admin Dose Admin Lactated Ringer's 1,000 ml @ 0 mls/hr Q0M ONCE IV 09/13/19 07:16 09/13/19 07:17 DC 09/13/19 07:26 1,000 MLS/HR Vital Signs/I&O 09/13/19 06:39 Temp 36.7 Pulse 54 Resp 16 B/P (MAP) 123/74 (90) O2 Delivery Room Air Blood Pressure Mean: 90 Progress Progress Note #1: Time: 07:21 Progress Note Labs are unremarkable except mild hypokalemia. UA is pending. Patient has not required any medications. She has not been able to urinate. A liter of LR is infusing. Patient was incontinent of a stool in bed. Progress Note #2: Time: 08:44 Progress Note Patient's symptoms have resolved. She is happy and ready for discharge. Workup was unremarkable except for hypokalemia. We will replace potassium before discharge. Departure Impression Primary Impression: Right-sided abdominal pain of unknown cause Additional Impressions: Nausea Hypokalemia Disposition: 01 HOME, SELF-CARE Condition: Improved Departure-Patient Inst. Referrals: [facility] (PCP/Family) Primary Care Physician Copy Copies To 1: JOZEF ROSARIO JOSHUA T MD Sep 13, 2019 07:16
--- OUTSIDE RECORDS SUMMARY | 2019-09-13 07:18 | XMS REPORT ---
Author Author EVERT GAMEZ [facility] Address [address] [place] [address] Care Team Providers Care Electrical Development Engineer Name Role Phone GRIFFIN MANCIA Unavailable LAURENT GAMEZ Unavailable Problems Problem SNOMED Onset Date Resolved Date Status Mental disorder [id number] Active Counseling procedure with explicit context [id number] Active Allergies, Adverse Reactions NA Care Plan Goal Instructions Client will be functioning more indepen dently with supports and have a life worth living. ADULT CASE MANAGEMENT SERVICE BUNDLE - P rovide the following services 1-3 times each week: + [id number] Case Conf w/Clt nn-Physician + [id number] Case Conf w/o clt + family w/MD + [id number] Case Conf no Clt, no MD, w/QMHP + [id number] CPST Adult + [id number] Strength Based Case Mgmt Client will be functioning more indepen dently with supports and have a life worth living. ADULT CASE MANAGEMENT SERVICE BUNDLE - P rovide the following services 1-3 times each week: + [id number] Case Conf w/Clt nn-Physician + [phone] Case Conf w/o clt + family w/MD + [id number] Case Conf no Clt, no MD, w/QMHP + [id number] CPST Adult + [id number] Strength Based Case Mgmt + [id number] TCM - Targeted Case Management Improve and maintain functioning throug h medical psychiatric services. Initial Psychiatric Evaluation, Ongoing medication monitoring and management, Case Conference with multidisciplinary members of the [facility] team as indicated, and/or Collaboration and coordination with outside medical providers as indicated by providing the following services: [id number] interactive complexity 46409 psychiatric diagnostic eval w/ meds 98553 30 min psychotherapy add-on 38507 45 [place] [address] 60 min psychotherapy add-on 87115 med injection 59396 New Patient E&M (level 1) 07478 New Patient E&M (level 2) 67714 New Patient E&M (level 3) 84832 New patient E&M (level 4) 20862 New Patient E&M (level 5) 23104 Established Patient E&M (level 1) 64094 Established Patient E&M (level 2) 37590 Established Patient E&M (level 3) 65563 Established Patient E&M (level 4) 94192 Established Patient E&M (level 5) 9935x prolonged service code 93348 case conference w/o clt & fam w/ [place] 43[address] case conference w/o clt w/ [id number] Peer Support Wilma Medications NA Lab Results NA Encounters Date Time Service Code Provider 10:07:00 am LAURENT GAMEZ 05:05:00 pm LAURENT GAMEZ Family History Functional Status NA Immunizations NA Vital Signs NA Social History Date Smoking Status SNOMED Code Unknown If Ever Smoked [id number] 1 Hospital Discharge Instructions NA Instructions NA Procedures Date Procedure Code Type Code P bob Volatile drug screen (procedure) SNOMED CT 613971096 Purpose Electronic Copy
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
--- OUTSIDE RECORDS SUMMARY | 2019-09-13 07:19 | XMS REPORT ---
Author Author Tiffany ROSARIO Organization [facility] Address [address] [place] [address] Care Team Providers Care Invasive Physician Name Role Phone JOZEF ROSARIO Unavailable PROBLEMS Type Condition ICD9-CM Code VWA09-EA Code Onset Dates Condition S tatus SNOMED Code Problem Flexural eczema L20.82 Active 5709 2005 Problem Intractable migraine without aura and with status migr ainosus G43.011 Active 070471175 Problem Lumbago with sciatica, right side M54.41 Active 972444825 Problem Other chronic pain G89.29 Active 8 0602317 Problem Bipolar disorder, current episode mixed, moderate F31.62 Active 103297955 Problem Anxiety F41.9 Active [id number] ALLERGIES No Information ENCOUNTERS Encounter Location Date Diagnosis [place] [address] [address] [facility] [id number] [address] [place] [address] Aug, Lumbago with sciatica, right side M54.41 and BMI 40.0-44.9, adult Z68.41 [place] [address] [address] [place] [id number] [address] [place] [address] Jul, BMI 40.0-44.9, adult Z68.41 [place] [address] [address] [facility] [id number] [address] [place] [address] Jul, Lumbago with sciatica, right side M54.41 and Other chronic pain G89.29 [place] [address] [address] [facility] [id number] [address] [place] [address] Jul, [place] [address] [address] [facility] [id number] [address] [place] [address] Jun, Other chronic pain G89.29 an d BMI 40.0-44.9, adult Z68.41 [facility] [address] [facility] [id number] [address] [place] [address] Jun, [facility] [address] [facility] [id number] [address] [place] [address] Jun, [facility] [address] [facility] [id number] [address] [place] [address] Jun, [facility] [address] [place] [id number] [address] [place] [address] Jun, BMI 40.0-44.9, adult Z68.41 ; Lumbago with sciatica, right side M54.41 and Intractable migraine without aura and with status migrainosus G43.011 [facility] [address] [facility] [id number] [address] [place] [address] May, BMI 40.0-44.9, adult Z68.41 [facility] [address] [place] [id number] [address] [place] [address] May, BMI 40.0-44.9, adult Z68.41 [facility] [address] [facility] [id number] [address] [place] [address] May, BMI 40.0-44.9, adult Z68.41 [facility] [address] [place] [id number] [address] [place] [address] Apr, [facility] [address] [place] [id number] [address] [place] [address] Apr, BMI 40.0-44.9, adult Z68.41 ; Lumbago with sciatica, right side M54.41 and Intractable migraine without aura and with status migrainosus G43.011 [facility] [address] [facility] [id number] [address] [place] [address] Apr, [facility] [address] [place] [id number] [address] [place] [address] Apr, [facility] [address] [facility] [id number] [address] [place] [address] Apr, [facility] [address] [id number] [address] [place] [address] Mar, Anxiety F41.9 [facility] [address] [id number] [address] [place] [address] Mar, [facility] [address] [id number] [address] [place] [address] Mar, [facility] [address] [id number] [address] [place] [address] Mar, [facility] [address] [id number] [address] [place] [address] Mar, [facility] [address] [id number] [address] [place] [address] Mar, [facility] [address] [id number] [address] [place] [address] Mar, Flexural eczema L20.82 [facility] [address] [id number] [address] [place] [address] Mar, Anxiety F41.9 [facility] [address] [id number] [address] [place] [address] Feb, Anxiety F41.9 and Lumbago wi th sciatica, right side M54.41 [facility] [address] [id number] [address] [place] [address] 15 Feb, 2017 [facility] [address] [id number] [address] [place] [address] 08 Feb, 2017 Anxiety F41.9 [facility] [address] [id number] [address] [place] [address] Jan, Anxiety F41.9 and Lumbago wi th sciatica, right side M54.41 [facility] [address] [id number] [address] [place] [address] Jan, Lumbago with sciatica, right side M54.41 [facility] [address] [id number] [address] [place] [address] Jan, Anxiety F41.9 [facility] [address] [id number] [address] [place] [address] Dec, Lumbago with sciatica, right side M54.41 and Anxiety F41.9 [facility] [address] [id number] [address] [place] [address] Dec, Anxiety F41.9 and Lumbago wi th sciatica, right side M54.41 [facility] [address] [id number] [address] [place] [address] Nov, [facility] [address] [id number] [address] [place] [address] Nov, [facility] [address] [id number] [address] [place] [address] Nov, Anxiety F41.9 and 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 [facility] [address] [id number] [address] [place] [address] Nov, Anxiety F41.9 [facility] [address] [id number] [address] [place] [address] October, Anxiety F41.9 ; Low back [place] n M54.5 and Pain in right knee M25.561 [facility] [address] [id number] [address] [place] [address] Sep, Lumbago with sciatica, right side M54.41 [facility] [address] [id number] [address] [place] [address] Sep, [facility] [address] [id number] [address] [place] [address] Aug, Lumbago with sciatica, right side M54.41 [facility] [address] [id number] [address] [place] [address] Aug, [facility] [address] [place] [id number] [address] [place] [address] Aug, [facility] [address] [place] [id number] [address] [place] [address] Aug, [facility] [address] [place] [id number] [address] [place] [address] Aug, Fever and chills R50.9 [facility] [address] [place] [id number] [address] [place] [address] Aug, Bipolar disorder, current ep isode mixed, moderate F31.62 and Other chronic pain G89.29 [facility] [address] [place] [id number] [address] [place] [address] Aug, Lumbago with sciatica, right side M54.41 [facility] [address] [place] [id number] [address] [place] [address] Aug, [facility] [address] [place] [id number] [address] [place] [address] Jul, Cellulitis of back except bu ttock L03.312 [facility] [address] [place] [id number] [address] [place] [address] Jul, [facility] [address] [place] [id number] [address] [place] [address] Jul, [facility] [address] [place] [id number] [address] [place] [address] Jul, Lumbago with sciatica, right side M54.41 [facility] [address] [facility] [id number] [address] [place] [address] Jul, Lumbago with sciatica, right side M54.41 [facility] [address] [facility] [id number] [address] [place] [address] Jun, [facility] [address] [place] [id number] [address] [place] [address] May, Lumbago with sciatica, right side M54.41 and Bipolar disorder, current episode mixed, moderate F31.62 [facility] [address] [id number] [address] [place] [address] May, [facility] [address] [id number] [address] [place] [address] May, Periodontal abscess K05.219 [facility] [address] [id number] [address] [place] [address] Apr, Lumbago with sciatica, right side M54.41 [facility] [address] [id number] [address] [place] [address] Apr, [facility] [address] [id number] [address] [place] [address] 31 Mar, 2016 Lumbago with sciatica, right side M54.41 and Other chronic pain G89.29 [facility] [address] [id number] [address] [place] [address] 17 Mar, 2016 [facility] [address] [id number] [address] [place] [address] 14 Mar, 2016 [facility] [address] [id number] [address] [place] [address] 13 Mar, 2016 [facility] [address] [id number] [address] [place] [address] 19 Feb, 2016 Carpal tunnel syndrome of ri ght wrist G56.01 [facility] [address] [id number] [address] [place] [address] 12 Feb, 2016 [facility] [address] [id number] [address] [place] [address] 12 Feb, 2016 [facility] [address] [id number] [address] [place] [address] Jan, Pain of left hand M79.642 an d Pain in right hand M79.641 [facility] [address] [id number] [address] [place] [address] Dec, Thoracic neuritis M54.14 and Lumbar neuritis M54.16 [facility] [address] [id number] [address] [place] [address], [place] [address] Nov, [facility] [address] [id number] [address] [place] [address], [place] [address] Sep, [facility] [address] [id number] [address] [place] [address], [place] [address] Sep, [facility] [address] [id number] [address] [place] [address], [place] [address] Jul, [facility] [address] [id number] [address] [place] [address] Jul, [facility] [address] [id number] [address] [place] [address], [place] [address] Jan, [facility] [address] [id number] [address] [place] [address] Jan, [facility] [address] [id number] [address] [place] [address], [place] [address] Jan, [facility] [address] [id number] [address] [place] [address] Jan, [facility] [address] [id number] [address] [place] [address] Jan, [facility] [address] [id number] [address] [place] [address] Jan, [facility] [address] [id number] [address] [place] [address], [place] [address] Dec, [facility] [address] [id number] [address] [place] [address] Dec, [facility] [address] [id number] [address] [place] [address], [place] [address] Dec, [facility] [address] [id number] [address] [place] [address], [place] [address] Dec, [facility] [address] [id number] [address] [place] [address], [place] [address] Nov, [facility] [address] [id number] [address] [place] [address], [place] [address] Nov, [facility] [address] [id number] [address] [place] [address], [place] [address] Nov, [facility] [address] [id number] [address] [place] [address], [place] [address] Nov, [facility] [address] [id number] [address] [place] [address], [place] [address] October, [facility] [address] [id number] [address] [place] [address], [place] [address] October, [facility] [address] [id number] [address] [place] [address], [place] [address] October, [facility] [address] [id number] [address] [place] [address], [place] [address] October, [facility] [address] [id number] [address] [place] [address], [place] [address] October, [facility] [address] [id number] [address] [place] [address], [place] [address] October, [facility] [address] [id number] [address] [place] [address], [place] [address] October, [facility] [address] [id number] [address] [place] [address], [place] [address] October, [facility] [address] [id number] [address] [place] [address], [place] [address] October, [facility] [address] [id number] [address] [place] [address], [place] [address] October, [facility] [address] [id number] [address] [place] [address], [place] [address] Sep, [facility] [address] [id number] [address] [place] [address], [place] [address] Sep, [facility] [address] [id number] [address] [place] [address], [place] [address] Sep, [facility] [address] [id number] [address] [place] [address], [place] [address] Sep, [facility] [address] [id number] [address] [place] [address], [place] [address] Sep, [facility] [address] [id number] [address] [place] [address], [place] [address] Aug, [facility] [address] [id number] [address] [place] [address], [place] [address] 08 Aug, 2012 [facility] [address] [id number] [address] [place] [address], [place] [address] Aug, [facility] [address] [id number] [address] [place] [address], [place] [address] Aug, [facility] [address] [id number] [address] [place] [address], [place] [address] Aug, [facility] [address] [id number] [address] [place] [address], [place] [address] 06 Jul, 2012 [facility] [address] [id number] [address] [place] [address], [place] [id number] Jun, [facility] [address] [id number] [address] [place] [address], [place] [address] 14 Jun, 2012 [facility] [address] [id number] [address] [place] [address], [place] [address] Jun, [facility] [address] [id number] [address] [place] [address], [place] [address] Jun, [facility] [address] [id number] [address] [place] [address], [place] [address] 18 May, 2012 [facility] [address] [id number] [address] [place] [address], [place] [address] 15 May, 2012 [facility] [address] [id number] [address] [place] [address], [place] [address] 14 May, 2012 [facility] [address] [id number] [address] [place] [address], [place] [address] 13 May, 2012 [facility] [address] [id number] [address] [place] [address], [place] [address] 13 May, 2012 [facility] [address] [id number] [address] [place] [address], [place] [address] 15 Apr, 2012 [facility] [address] [id number] [address] [place] [address], [place] [address] 15 Apr, 2012 [facility] [address] [id number] [address] [place] [address], [place] [address] Apr, [facility] [address] [id number] [address] [place] [address], [place] [address] Apr, [facility] [address] [id number] [address] [place] [address], [place] [address] Apr, [facility] [address] [id number] [address] [place] [address], [place] [address] Apr, [facility] [address] [id number] [address] [place] [address], [place] [address] Apr, [facility] [address] [id number] [address] [place] [address], [place] [address] Apr, [facility] [address] [id number] [address] [place] [address] 15 Mar, 2012 [facility] [address] [id number] [address] [place] [address], [place] [address] Mar, [facility] [address] [id number] [address] [place] [address], [place] [address] Feb, [facility] [address] [id number] [address] [place] [address], [place] [address] Jan, [facility] [address] [id number] [address] [place] [address], [place] [address] Jan, [facility] [address] [id number] [address] [place] [address], [place] [address] Dec, [facility] [address] [id number] [address] [place] [address], [place] [address] Dec, [facility] [address] [id number] [address] [place] [address], [place] [address] October, [facility] [address] [id number] [address] [place] [address], [place] [address] October, [facility] [address] [id number] [address] [place] [address], [place] [address] October, [facility] [address] [id number] [address] [place] [address], [place] [address] October, [facility] [address] [id number] [address] [place] [address], [place] [address] October, [facility] [address] [id number] [address] [place] [address], [place] [address] Sep, [facility] [address] [id number] [address] [place] [address], [place] [address] Sep, [facility] [address] [id number] [address] [place] [address], [place] [address] Sep, [facility] [address] [id number] [address] [place] [address], [place] [address] Sep, [facility] [address] [id number] [address] [place] [address], [place] [address] Aug, [facility] [address] [id number] [address] [place] [address], [place] [id number] Jul, [facility] [address] [id number] [address] [place] [address], [place] [id number] Jul, [facility] [address] [id number] [address] [place] [address], [place] [id number] Jul, [facility] [address] [id number] [address] [place] [id number] Jun, [facility] [address] [id number] [address] [place] [phone] Jun, [facility] [address] [id number] [address] [place] [phone] May, [facility] [address] [id number] [address] [place] [id number] May, [facility] [address] [id number] [address] [place] [id number] May, [facility] [address] [id number] [address] [place] [id number] Apr, [facility] [address] [id number] [address] [place] [id number] Apr, [facility] [address] [id number] [address] [place] [id number] Apr, [facility] [address] [id number] [address] [place] [id number] Apr, [facility] [address] [id number] [address] [place] [phone] Apr, [facility] [address] [id number] [address] [place] [id number] Mar, [facility] [address] [id number] [address] [place] [id number] Mar, [facility] [address] [id number] [address] [place] [id number] Mar, IMMUNIZATIONS No Known Immunizations SOCIAL HISTORY Never Assessed REASON FOR VISIT PLAN OF CARE VITAL SIGNS MEDICATIONS Unknown Medications RESULTS No Results PROCEDURES No Known procedures INSTRUCTIONS MEDICATIONS ADMINISTERED No Known Medications MEDICAL (GENERAL) HISTORY Type Description Date Medical History anxiety Medical History depression Medical History emotional trauma effecting her memory Medical History migraines Hospitalization History childbirth only [facility]
--- OUTSIDE RECORDS SUMMARY | 2019-09-13 07:19 | XMS REPORT ---
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 Name Role Phone JOSE NARAYAN Unavailable PROBLEMS Type Condition ICD9-CM Code [id number] Code Onset Dates Condition S tatus SNOMED Code Problem Flexural eczema L20.82 Active 5709 2005 Problem Intractable migraine without aura and with status migr ainosus G43.011 Active 085736222 Problem Lumbago with sciatica, right side M54.41 Active 970682153 Problem Other chronic pain G89.29 Active 8 5368397 Problem Bipolar disorder, current episode mixed, moderate F31.62 Active 910331291 Problem Anxiety F41.9 Active [id number] ALLERGIES No Information ENCOUNTERS Encounter Location Date Diagnosis [place] [address] [place] [id number] [address] [place] [address] Aug, Lumbago with sciatica, right side M54.41 and BMI 40.0-44.9, adult Z68.41 [place] [address] [place] [id number] [address] [place] [address] Jul, BMI 40.0-44.9, adult Z68.41 [place] [address] [place] [id number] [address] [place] [address] Jul, Lumbago with sciatica, right side M54.41 and Other chronic pain G89.29 [place] [address] [place] [id number] [address] [place] [address] Jul, [place] [address] [facility] [id number] [address] [place] [address] Jun, Other chronic pain G89.29 an d BMI 40.0-44.9, adult Z68.41 [facility] [address] [id number] [address] [place] [address] Jun, [facility] [address] [id number] [address] [place] [phone] Jun, [facility] [address] [facility] [id number] [address] [place] [address] Jun, [facility] [address] [id number] [address] [place] [address] Jun, BMI 40.0-44.9, adult Z68.41 ; Lumbago with sciatica, right side M54.41 and Intractable migraine without aura and with status migrainosus G43.011 [facility] [address] [place] [address] [id number] [address] [place] [address] May, BMI 40.0-44.9, adult Z68.41 [facility] [address] [place] [address] [id number] [address] [place] [address] May, BMI 40.0-44.9, adult Z68.41 [facility] [address] [place] [address] [id number] [address] [place] [address] May, BMI 40.0-44.9, adult Z68.41 [facility] [address] [place] [address] [id number] [address] [place] [address] Apr, [facility] [address] [place] [address] [id number] [address] [place] [address] Apr, BMI 40.0-44.9, adult Z68.41 ; Lumbago with sciatica, right side M54.41 and Intractable migraine without aura and with status migrainosus G43.011 [facility] [address] [place] [address] [id number] [address] [place] [address] Apr, [facility] [address] [address] [id number] [address] [place] [address] Apr, [facility] [address] [address] [id number] [address] [place] [address] Apr, [facility] [address] [id number] [address] [place] [address] Mar, Anxiety F41.9 [facility] [address] [id number] [address] [place] [address] Mar, [facility] [address] [id number] [address] [place] [address] Mar, [facility] [address] [id number] [address] [place] [phone] Mar, [facility] [address] [id number] [address] [place] [address] Mar, [facility] [address] [id number] [address] [place] [address] Mar, [facility] [address] [id number] [address] [place] [address] Mar, Flexural eczema L20.82 [facility] [address] [id number] [address] [place] [address] Mar, Anxiety F41.9 [facility] [address] [id number] [address] [place] [address] Feb, Anxiety F41.9 and Lumbago wi th sciatica, right side M54.41 [facility] [address] [id number] [address] [place] [address] 15 Feb, 2017 [facility] [address] [id number] [address] [place] [phone] 08 Feb, 2017 Anxiety F41.9 [facility] [address] [id number] [address] [place] [address] Jan, Anxiety F41.9 and Lumbago wi th sciatica, right side M54.41 [facility] [address] [id number] [address] [place] [address] Jan, Lumbago with sciatica, right side M54.41 [facility] [address] [id number] [address] [place] [address] Jan, Anxiety F41.9 [facility] [address] [id number] [address] [place] [address] Dec, Lumbago with sciatica, right side M54.41 and Anxiety F41.9 [facility] [address] [id number] [address] [place] [address] Dec, Anxiety F41.9 and Lumbago wi th sciatica, right side M54.41 [facility] [address] [id number] [address] [place] [address] Nov, [facility] [address] [id number] [address] [place] [address] Nov, [facility] [address] [id number] [address] [place] [address] Nov, Anxiety F41.9 and 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 [facility] [address] [id number] [address] [place] [address] Nov, Anxiety F41.9 [facility] [address] [id number] [address] [place] [address] October, Anxiety F41.9 ; Low back [place] n M54.5 and Pain in right knee M25.561 [facility] [address] [id number] [address] [place] [address] Sep, Lumbago with sciatica, right side M54.41 [facility] [address] [id number] [address] [place] [address] Sep, [facility] [address] [id number] [address] [place] [address] Aug, Lumbago with sciatica, right side M54.41 [facility] [address] [id number] [address] [place] [address] Aug, [facility] [address] [place] [id number] [address] [place] [address] Aug, [facility] [address] [place] [address] [id number] [address] [place] [address] Aug, [facility] [address] [place] [address] [id number] [address] [place] [address] Aug, Fever and chills R50.9 [facility] [address] [place] [address] [id number] [address] [place] [address] Aug, Bipolar disorder, current ep isode mixed, moderate F31.62 and Other chronic pain G89.29 [facility] [address] [place] [id number] [address] [place] [address] Aug, Lumbago with sciatica, right side M54.41 [facility] [address] [place] [address] [id number] [address] [place] [address] Aug, [facility] [address] [place] [address] [id number] [address] [place] [address] Jul, Cellulitis of back except bu ttock L03.312 [facility] [address] [place] [address] [id number] [address] [place] [address] Jul, [facility] [address] [place] [address] [id number] [address] [place] [address] Jul, [facility] [address] [id number] [address] [place] [address] Jul, Lumbago with sciatica, right side M54.41 [facility] [address] [place] [address] [id number] [address] [place] [address] Jul, Lumbago with sciatica, right side M54.41 [facility] [address] [place] [address] [id number] [address] [place] [address] Jun, [facility] [address] [place] [address] [id number] [address] [place] [address] May, Lumbago with sciatica, right side M54.41 and Bipolar disorder, current episode mixed, moderate F31.62 [facility] [address] [id number] [address] [place] [address] May, [facility] [address] [id number] [address] [place] [address] May, Periodontal abscess K05.219 [facility] [address] [id number] [address] [place] [address] Apr, Lumbago with sciatica, right side M54.41 [facility] [address] [id number] [address] [place] [address] Apr, [facility] [address] [id number] [address] [place] [address] 31 Mar, 2016 Lumbago with sciatica, right side M54.41 and Other chronic pain G89.29 [facility] [address] [id number] [address] [place] [address] 17 Mar, 2016 [facility] [address] [id number] [address] [place] [address] 14 Mar, 2016 [facility] [address] [id number] [address] [place] [address] 13 Mar, 2016 [facility] [address] [id number] [address] [place] [phone] 19 Feb, 2016 Carpal tunnel syndrome of ri ght wrist G56.01 [facility] [address] [id number] [address] [place] [address] 12 Feb, 2016 [facility] [address] [id number] [address] [place] [address] 12 Feb, 2016 [facility] [address] [id number] [address] [place] [address] Jan, Pain of left hand M79.642 an d Pain in right hand M79.641 [facility] [address] [id number] [address] [place] [address], [place] [address] Dec, Thoracic neuritis M54.14 and Lumbar neuritis M54.16 [facility] [address] [id number] [address] [place] [address], [place] [address] Nov, [facility] [address] [id number] [address] [place] [address], [place] [address] Sep, [facility] [address] [id number] [address] [place] [address], [place] [address] Sep, [facility] [address] [id number] [address] [place] [address], [place] [address] Jul, [facility] [address] [id number] [address] [place] [address], [place] [address] Jul, [facility] [address] [id number] [address] [place] [address], [place] [address] Jan, [facility] [address] [id number] [address] [place] [address], [place] [address] Jan, [facility] [address] [id number] [address] [place] [address], [place] [address] Jan, [facility] [address] [id number] [address] [place] [address], [place] [address] Jan, [facility] [address] [id number] [address] [place] [address], [place] [address] Jan, [facility] [address] [id number] [address] [place] [address], [place] [address] Jan, [facility] [address] [id number] [address] [place] [address], [place] [address] Dec, [facility] [address] [id number] [address] [place] [address], [place] [address] Dec, [facility] [address] [id number] [address] [place] [address], [place] [address] Dec, [facility] [address] [id number] [address] [place] [address], [place] [address] Dec, [facility] [address] [id number] [address] [place] [address], [place] [address] Nov, [facility] [address] [id number] [address] [place] [address], [place] [address] Nov, [facility] [address] [id number] [address] [place] [address], [place] [address] Nov, [facility] [address] [id number] [address] [place] [address], [place] [address] Nov, [facility] [address] [id number] [address] [place] [address], [place] [address] October, [facility] [address] [id number] [address] [place] [address], [place] [address] October, [facility] [address] [id number] [address] [place] [address], [place] [address] October, [facility] [address] [id number] [address] [place] [address], [place] [address] October, [facility] [address] [id number] [address] [place] [address], [place] [address] October, [facility] [address] [id number] [address] [place] [address], [place] [address] October, [facility] [address] [id number] [address] [place] [address], [place] [address] October, [facility] [address] [id number] [address] [place] [address], [place] [address] October, [facility] [address] [id number] [address] [place] [address], [place] [address] October, [facility] [address] [id number] [address] [place] [address], [place] [address] October, [facility] [address] [id number] [address] [place] [address], [place] [address] Sep, [facility] [address] [id number] [address] [place] [address], [place] [address] Sep, [facility] [address] [id number] [address] [place] [address], [place] [address] Sep, [facility] [address] [id number] [address] [place] [address], [place] [address] Sep, [facility] [address] [id number] [address] [place] [address], [place] [address] Sep, [facility] [address] [id number] [address] [place] [address], [place] [address] Aug, [facility] [address] [id number] [address] [place] [address], [place] [address] 08 Aug, 2012 [facility] [address] [id number] [address] [place] [address], [place] [address] Aug, [facility] [address] [id number] [address] [place] [address], [place] [address] Aug, [facility] [address] [id number] [address] [place] [address], [place] [address] Aug, [facility] [address] [id number] [address] [place] [address], [place] [address] 06 Jul, 2012 [facility] [address] [id number] [address] [place] [id number] 15 Jun, 2012 [facility] [address] [id number] [address] [place] [address] 14 Jun, 2012 [facility] [address] [id number] [address] [place] [address], [place] [address] Jun, [facility] [address] [id number] [address] [place] [address], [place] [address] Jun, [facility] [address] [id number] [address] [place] [address] May, [facility] [address] [id number] [address] [place] [id number] 15 May, 2012 [facility] [address] [id number] [address] [place] [address], [place] [address] 14 May, 2012 [facility] [address] [id number] [address] [place] [address], [place] [address] 13 May, 2012 [facility] [address] [id number] [address] [place] [address], [place] [address] 13 May, 2012 [facility] [address] [id number] [address] [place] [address] 15 Apr, 2012 [facility] [address] [id number] [address] [place] [address], [place] [address] 15 Apr, 2012 [facility] [address] [id number] [address] [place] [address], [place] [address] Apr, [facility] [address] [id number] [address] [place] [address], [place] [address] Apr, [facility] [address] [id number] [address] [place] [address], [place] [address] Apr, [facility] [address] [id number] [address] [place] [address], [place] [address] Apr, [facility] [address] [id number] [address] [place] [address], [place] [address] Apr, [facility] [address] [id number] [address] [place] [address] Apr, [facility] [address] [id number] [address] [place] [address] Mar, [facility] [address] [id number] [address] [place] [address] Mar, [facility] [address] [id number] [address] [place] [address], [place] [address] Feb, [facility] [address] [id number] [address] [place] [address], [place] [address] Jan, [facility] [address] [id number] [address] [place] [address], [place] [address] Jan, [facility] [address] [id number] [address] [place] [address], [place] [address] Dec, [facility] [address] [id number] [address] [place] [address], [place] [address] Dec, [facility] [address] [id number] [address] [place] [address], [place] [address] October, [facility] [address] [id number] [address] [place] [address], [place] [address] October, [facility] [address] [id number] [address] [place] [address], [place] [address] October, [facility] [address] [id number] [address] [place] [address], [place] [address] October, [facility] [address] [id number] [address] [place] [address], [place] [address] October, [facility] [address] [id number] [address] [place] [address], [place] [address] Sep, [facility] [address] [id number] [address] [place] [address], [place] [address] Sep, [facility] [address] [id number] [address] [place] [address], [place] [address] Sep, [facility] [address] [id number] [address] [place] [address], [place] [address] Sep, [facility] [address] [id number] [address] [place] [address], [place] [address] Aug, [facility] [address] [id number] [address] [place] [address], [place] [address] Jul, [facility] [address] [id number] [address] [place] [address], [place] [address] Jul, [facility] [address] [id number] [address] [place] [address] [address] Jul, [facility] [address] [id number] [address] [place] [phone] Jun, [facility] [address] [id number] [address] [place] [phone] Jun, [facility] [address] [id number] [address] [place] [phone] May, [facility] [address] [id number] [address] [place] [phone] May, [facility] [address] [id number] [address] [place] [phone] May, [facility] [address] [id number] [address] [place] [phone] Apr, [facility] [address] [id number] [address] [place] [phone] Apr, [facility] [address] [id number] [address] [place] [phone] Apr, [facility] [address] [id number] [address] [place] [phone] Apr, [facility] [address] [id number] [address] [place] [phone] Apr, [facility] [address] [id number] [address] [place] [phone] Mar, [facility] [address] [id number] [address] [place] [phone] Mar, [facility] [address] [id number] [address] [place] [id number] Mar, IMMUNIZATIONS No Known Immunizations SOCIAL HISTORY Never Assessed REASON FOR VISIT PLAN OF CARE VITAL SIGNS MEDICATIONS Unknown Medications RESULTS No Results PROCEDURES No Known procedures INSTRUCTIONS MEDICATIONS ADMINISTERED No Known Medications MEDICAL (GENERAL) HISTORY Type Description Date Medical History anxiety Medical History depression Medical History emotional trauma effecting her memory Medical History migraines Hospitalization History childbirth only Hospitalization History hit by [id number]
--- OUTSIDE RECORDS SUMMARY | 2019-09-13 07:19 | XMS REPORT ---
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.011 Active 676225997 Problem Lumbago with sciatica, right side M54.41 Active 807231780 Problem Other chronic pain G89.29 Active 8 3725887 Problem Bipolar disorder, current episode mixed, moderate F31.62 Active 316987068 Problem Anxiety F41.9 Active 18820394 ALLERGIES No Information ENCOUNTERS Encounter Location Date Diagnosis [place] [id number] [place] [id number] Aug, Lumbago with sciatica, right side M54.41 and BMI 40.0-44.9, adult Z68.41 [place] [address] [place] [id number] [address] [place] [id number] Jul, BMI 40.0-44.9, adult Z68.41 [place] [address] [place] [id number] [address] [place] [id number] Jul, Lumbago with sciatica, right side M54.41 and Other chronic pain G89.29 [place] [address] [facility] [id number] [address] [place] [id number] Jul, [place] [address] [place] [id number] [address] [place] [id number] Jun, Other chronic pain G89.29 an d BMI 40.0-44.9, adult Z68.41 [place] [address] [place] [id number] [address] [place] [id number] Jun, [facility] [address] [id number] [address] [place] [id number] Jun, [facility] [address] [facility] [id number] [address] [place] [id number] Jun, [facility] [address] [facility] [id number] [address] [place] [id number] Jun, BMI 40.0-44.9, adult Z68.41 ; Lumbago with sciatica, right side M54.41 and Intractable migraine without aura and with status migrainosus G43.011 [facility] [address] [id number] [address] [place] [id number] May, BMI 40.0-44.9, adult Z68.41 [facility] [address] [facility] [id number] [address] [place] [id number] May, BMI 40.0-44.9, adult Z68.41 [facility] [address] [facility] [id number] [address] [place] [id number] May, BMI 40.0-44.9, adult Z68.41 [facility] [address] [facility] [id number] [address] [place] [id number] Apr, [facility] [address] [facility] [id number] [address] [place] [id number] Apr, BMI 40.0-44.9, adult Z68.41 ; Lumbago with sciatica, right side M54.41 and Intractable migraine without aura and with status migrainosus G43.011 [facility] [address] [id number] [address] [place] [id number] Apr, [facility] [address] [facility] [id number] [address] [place] [id number] Apr, [facility] [address] [facility] [id number] [address] [place] [id number] Apr, [facility] [address] [id number] [address] [place] [id number] Mar, Anxiety F41.9 [facility] [address] [id number] [address] [place] [id number] Mar, [facility] [address] [id number] [address] [place] [phone] Mar, [facility] [address] [id number] [address] [place] [id number] Mar, [facility] [address] [id number] [address] [place] [id number] Mar, [facility] [address] [id number] [address] [place] [id number] Mar, [facility] [address] [facility] [id number] [address] [place] [id number] Mar, Flexural eczema L20.82 [facility] [address] [facility] [id number] [address] [place] [id number] Mar, Anxiety F41.9 [facility] [address] [id number] [address] [place] [id number] Feb, Anxiety F41.9 and Lumbago wi th sciatica, right side M54.41 [facility] [address] [facility] [id number] [address] [place] [id number] Feb, [facility] [address] [id number] [address] [place] [id number] Feb, Anxiety F41.9 [facility] [address] [id number] [address] [place] [id number] Jan, Anxiety F41.9 and Lumbago wi th sciatica, right side M54.41 [facility] [address] [facility] [id number] [address] [place] [id number] Jan, Lumbago with sciatica, right side M54.41 [facility] [address] [facility] [id number] [address] [place] [phone] Jan, Anxiety F41.9 [facility] [address] [id number] [address] [place] [id number] Dec, Lumbago with sciatica, right side M54.41 and Anxiety F41.9 [facility] [address] [id number] [address] [place] [id number] Dec, Anxiety F41.9 and Lumbago wi th sciatica, right side M54.41 [facility] [address] [id number] [address] [place] [id number] Nov, [facility] [address] [id number] [address] [place] [phone] Nov, [facility] [address] [id number] [address] [place] [id number] Nov, Anxiety F41.9 and 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 [facility] [address] [id number] [address] [place] [id number] Nov, Anxiety F41.9 [facility] [address] [id number] [address] [place] [id number] October, Anxiety F41.9 ; Low back [place] n M54.5 and Pain in right knee M25.561 [facility] [address] [id number] [address] [place] [id number] Sep, Lumbago with sciatica, right side M54.41 [facility] [address] [id number] [address] [place] [id number] Sep, [facility] [address] [id number] [address] [place] [id number] Aug, Lumbago with sciatica, right side M54.41 [facility] [address] [id number] [address] [place] [id number] Aug, [facility] [address] [id number] [address] [place] [id number] Aug, [facility] [address] [id number] [address] [place] [id number] Aug, [facility] [address] [id number] [address] [place] [id number] Aug, Fever and chills R50.9 [facility] [address] [id number] [address] [place] [id number] Aug, Bipolar disorder, current ep isode mixed, moderate F31.62 and Other chronic pain G89.29 [facility] [address] [id number] [address] [place] [id number] Aug, Lumbago with sciatica, right side M54.41 [facility] [address] [id number] [address] [place] [id number] Aug, [facility] [address] [facility] [id number] [address] [place] [id number] Jul, Cellulitis of back except bu ttock L03.312 [facility] [address] [id number] [address] [place] [id number] Jul, [facility] [address] [id number] [address] [place] [id number] Jul, [facility] [address] [id number] [address] [place] [id number] Jul, Lumbago with sciatica, right side M54.41 [facility] [address] [id number] [address] [place] [id number] Jul, Lumbago with sciatica, right side M54.41 [facility] [address] [id number] [address] [place] [id number] Jun, [facility] [address] [id number] [address] [place] [id number] May, Lumbago with sciatica, right side M54.41 and Bipolar disorder, current episode mixed, moderate F31.62 [facility] [address] [id number] [address] [place] [id number] May, [facility] [address] [id number] [address] [place] [id number] May, Periodontal abscess K05.219 [facility] [address] [id number] [address] [place] [id number] Apr, Lumbago with sciatica, right side M54.41 [facility] [address] [id number] [address] [place] [id number] Apr, [facility] [address] [id number] [address] [place] [id number] Mar, Lumbago with sciatica, right side M54.41 and Other chronic pain G89.29 [facility] [address] [id number] [address] [place] [id number] 17 Mar, 2016 [facility] [address] [id number] [address] [place] [id number] 14 Mar, 2016 [facility] [address] [id number] [address] [place] [id number] 13 Mar, 2016 [facility] [address] [facility] [id number] [address] [place] [id number] 19 Feb, 2016 Carpal tunnel syndrome of ri ght wrist G56.01 [facility] [address] [id number] [address] [place] [id number] 12 Feb, 2016 [facility] [address] [id number] [address] [place] [id number] Feb, [facility] [address] [facility] [id number] [address] [place] [id number] Jan, Pain of left hand M79.642 an d Pain in right hand M79.641 [facility] [address] [facility] [id number] [address] [place] [id number] Dec, Thoracic neuritis M54.14 and Lumbar neuritis M54.16 [facility] [address] [id number] [address] [place] [address], [place] [id number] 15 Nov, 2015 [facility] [address] [id number] [address] [place] [address], [place] [id number] Sep, [facility] [address] [id number] [address] [place] [address], [place] [id number] Sep, [facility] [address] [id number] [address] [place] [address], [place] [id number] Jul, [facility] [address] [id number] [address] [place] [address], [place] [id number] Jul, [facility] [address] [id number] [address] [place] [address], [place] [id number] Jan, [facility] [address] [id number] [address] [place] [address], [place] [id number] Jan, [facility] [address] [id number] [address] [place] [address], [place] [id number] Jan, [facility] [address] [id number] [address] [place] [address], [place] [id number] Jan, [facility] [address] [id number] [address] [place] [address], [place] [id number] Jan, [facility] [address] [id number] [address] [place] [address], [place] [id number] Jan, [facility] [address] [id number] [address] [place] [address], [place] [id number] Dec, [facility] [address] [id number] [address] [place] [address], [place] [id number] Dec, [facility] [address] [id number] [address] [place] [address], [place] [id number] Dec, [facility] [address] [id number] [address] [place] [address], [place] [id number] Dec, [facility] [address] [id number] [address] [place] [address], [place] [id number] 12 Nov, 2012 [facility] [address] [id number] [address] [place] [address], [place] [id number] Nov, [facility] [address] [id number] [address] [place] [address], [place] [id number] 07 Nov, 2012 [facility] [address] [id number] [address] [place] [address], [place] [id number] Nov, [facility] [address] [id number] [address] [place] [address], [place] [id number] October, [facility] [address] [id number] [address] [place] [address], [place] [id number] October, [facility] [address] [id number] [address] [place] [address], [place] [id number] October, [facility] [address] [id number] [address] [place] [address], [place] [id number] October, [facility] [address] [id number] [address] [place] [address], [place] [id number] October, [facility] [address] [id number] [address] [place] [address], [place] [id number] October, [facility] [address] [id number] [address] [place] [address], [place] [id number] October, [facility] [address] [id number] [address] [place] [address], [place] [id number] October, [facility] [address] [id number] [address] [place] [address], [place] [id number] October, [facility] [address] [id number] [address] [place] [address], [place] [id number] October, [facility] [address] [id number] [address] [place] [address], [place] [id number] Sep, [facility] [address] [id number] [address] [place] [address], [place] [id number] Sep, [facility] [address] [id number] [address] [place] [address], [place] [id number] Sep, [facility] [address] [id number] [address] [place] [address], [place] [id number] Sep, [facility] [address] [id number] [address] [place] [address], [place] [id number] Sep, [facility] [address] [id number] [address] [place] [address], [place] [id number] Aug, [facility] [address] [id number] [address] [place] [address], [place] [id number] 08 Aug, 2012 [facility] [address] [id number] [address] [place] [address], [place] [id number] 07 Aug, 2012 [facility] [address] [id number] [address] [place] [address], [place] [id number] Aug, [facility] [address] [id number] [address] [place] [id number] Aug, [facility] [address] [id number] [address] [place] [address], [place] [id number] Jul, [facility] [address] [id number] [address] [place] [id number] Jun, [facility] [address] [id number] [address] [place] [id number] Jun, [facility] [address] [id number] [address] [place] [id number] Jun, [facility] [address] [id number] [address] [place] [id number] Jun, [facility] [address] [id number] [address] [place] [id number] May, [facility] [address] [id number] [address] [place] [id number] May, [facility] [address] [id number] [address] [place] [id number] 14 May, 2012 [facility] [address] [id number] [address] [place] [address], [place] [id number] 13 May, 2012 [facility] [address] [id number] [address] [place] [address], [place] [id number] 13 May, 2012 [facility] [address] [id number] [address] [place] [address], [place] [id number] 15 Apr, 2012 [facility] [address] [id number] [address] [place] [address], [place] [id number] 15 Apr, 2012 [facility] [address] [id number] [address] [place] [address], [place] [id number] Apr, [facility] [address] [id number] [address] [place] [address], [place] [id number] Apr, [facility] [address] [id number] [address] [place] [address], [place] [id number] Apr, [facility] [address] [id number] [address] [place] [address], [place] [id number] Apr, [facility] [address] [id number] [address] [place] [address], [place] [id number] Apr, [facility] [address] [id number] [address] [place] [address], [place] [id number] Apr, [facility] [address] [id number] [address] [place] [address], [place] [id number] Mar, [facility] [address] [id number] [address] [place] [phone] Mar, [facility] [address] [id number] [address] [place] [address], [place] [id number] Feb, [facility] [address] [id number] [address] [place] [address], [place] [id number] Jan, [facility] [address] [id number] [address] [place] [address], [place] [id number] Jan, [facility] [address] [id number] [address] [place] [address], [place] [id number] Dec, [facility] [address] [id number] [address] [place] [address], [place] [id number] Dec, [facility] [address] [id number] [address] [place] [address], [place] [id number] October, [facility] [address] [id number] [address] [place] [address], [place] [id number] October, [facility] [address] [id number] [address] [place] [address], [place] [id number] October, [facility] [address] [id number] [address] [place] [address], [place] [id number] October, [facility] [address] [id number] [address] [place] [address], [place] [id number] October, [facility] [address] [id number] [address] [place] [address], [place] [id number] Sep, [facility] [address] [id number] [address] [place] [address], [place] [id number] Sep, [facility] [address] [id number] [address] [place] [address], [place] [id number] Sep, [facility] [address] [id number] [address] [place] [address], [place] [id number] Sep, [facility] [address] [id number] [address] [place] [address], [place] [id number] Aug, [facility] [address] [id number] [address] [place] [address], [place] [id number] Jul, [facility] [address] [id number] [address] [place] [address], [place] [id number] Jul, [facility] [address] [id number] [address] [place] [address], [place] [id number] Jul, [facility] [address] [id number] [place] [address] Jun, [facility] [address] [id number] [address] [place] [id number] Jun, [facility] [address] [id number] [address] [place] [id number] May, [facility] [address] [id number] [address] [place] [id number] May, [facility] [address] [id number] [address] [place] [id number] May, [facility] [address] [id number] [address] [place] [id number] Apr, [facility] [address] [id number] [address] [place] [id number] Apr, [facility] [address] [id number] [address] [place] [id number] Apr, [facility] [address] [id number] [address] [place] [id number] Apr, [facility] [address] [id number] [address] [place] [id number] Apr, [facility] [address] [id number] [address] [place] [id number] Mar, [facility] [address] [id number] [address] [place] [id number] Mar, [facility] [address] [id number] [address] [place] [id number] Mar, IMMUNIZATIONS No Known Immunizations SOCIAL HISTORY [...]
--- OUTSIDE RECORDS SUMMARY | 2019-09-13 07:19 | XMS REPORT ---
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.011 Active 075063084 Problem Lumbago with sciatica, right side M54.41 Active 077565681 Problem Other chronic pain G89.29 Active 8 5522052 Problem Bipolar disorder, current episode mixed, moderate F31.62 Active 062277810 Problem Anxiety F41.9 Active 91146529 ALLERGIES No Information ENCOUNTERS Encounter Location Date Diagnosis [address] [address] Aug, Lumbago with sciatica, right side M54.41 and BMI 40.0-44.9, adult Z68.[address] [address] Jul, BMI 40.0-44.9, adult Z68.[address] [address] Jul, Lumbago with sciatica, right side M54.41 and Other chronic pain G89.[address] [address] Jul, [address] [address] Jun, Other chronic pain G89.29 and BMI 40.0-4 4.9, adult Z68.[address] [id number] [place] [address] Jun, [facility] [address] [address] Jun, [facility] [address] [address] Jun, [facility] [address] [address] Jun, BMI 40.0-44.9, adult Z68.41 ; Lumbago wi th sciatica, right side M54.41 and Intractable migraine without aura and with status migrainosus G43.011 [facility] [address] [address] May, BMI 40.0-44.9, adult Z68.41 [facility] [address] [address] May, BMI 40.0-44.9, adult Z68.41 [facility] [address] [address] May, BMI 40.0-44.9, adult Z68.41 [facility] [address] [address] Apr, [facility] [address] [address] Apr, BMI 40.0-44.9, adult Z68.41 ; Lumbago wi th sciatica, right side M54.41 and Intractable migraine without aura and with status migrainosus G43.011 [facility] [address] [address] Apr, [facility] [address] [address] Apr, [facility] [address] [address] Apr, [facility] [address] [address] Mar, Anxiety F41.9 [facility] [address] [address] Mar, [facility] [address] [address] Mar, [facility] [address] [address] Mar, [facility] [address] [address] Mar, [facility] [address] [address] Mar, [facility] [address] [address] Mar, Flexural eczema L20.82 [facility] [address] [address] Mar, Anxiety F41.9 [facility] [address] [address] Feb, Anxiety F41.9 and Lumbago with sciatica, right side M54.41 [facility] [address] [address] Feb, [facility] [address] [address] Feb, Anxiety F41.9 [facility] [address] [address] Jan, Anxiety F41.9 and Lumbago with sciatica, right side M54.41 [facility] [address] [address] Jan, Lumbago with sciatica, right side M54.41 [facility] [address] [address] Jan, Anxiety F41.9 [facility] [address] [address] Dec, Lumbago with sciatica, right side M54.41 and Anxiety F41.9 [facility] [address] [address] Dec, Anxiety F41.9 and Lumbago with sciatica, right side M54.41 [facility] [address] [address] Nov, [facility] [address] [address] Nov, [facility] [address] [address] Nov, Anxiety F41.9 and Other chronic pain G89 .29 [facility] [address] [address] Nov, Anxiety F41.9 [facility] [address] [address] October, Anxiety F41.9 ; Low back pain M54.5 and Pain in right knee M25.561 [place] [address] [address] Sep, Lumbago with sciatica, right side M54.41 [facility] [address] [address] Sep, [facility] [address] [address] Aug, Lumbago with sciatica, right side M54.41 [facility] [address] [address] Aug, [facility] [address] [address] Aug, [facility] [address] [address] Aug, [facility] [address] [address] Aug, Fever and chills R50.9 [place] [address] [address] Aug, Bipolar disorder, current episode mixed, moderate F31.62 and Other chronic pain G89.29 [place] [address] [address] Aug, Lumbago with sciatica, right side M54.41 [place] [address] [address] Aug, [place] [address] [address] Jul, Cellulitis of back except buttock L03.31 [address] [place] [address] [address] Jul, [place] [address] [address] Jul, [place] [address] [address] Jul, Lumbago with sciatica, right side M54.41 [place] [address] [address] Jul, Lumbago with sciatica, right side M54.41 [place] [address] [address] Jun, [place] [address] [address] May, Lumbago with sciatica, right side M54.41 and Bipolar disorder, current episode mixed, moderate F31.62 [place] [address] [address] May, [place] [address] [address] May, Periodontal abscess K05.219 [place] [address] [address] Apr, Lumbago with sciatica, right side M54.41 [facility] [address] [address] Apr, [facility] [address] [address] 31 Mar, 2016 Lumbago with sciatica, right side M54.41 and Other chronic pain G89.29 [facility] [address] [address] 17 Mar, 2016 [facility] [address] [address] 14 Mar, 2016 [facility] [address] [address] 13 Mar, 2016 [facility] [address] [address] 19 Feb, 2016 Carpal tunnel syndrome of right wrist G5 6.01 [facility] [address] [address] 12 Feb, 2016 [facility] [address] [address] 12 Feb, 2016 [facility] [address] [address] Jan, Pain of left hand M79.642 and Pain in ri ght hand M79.641 [facility] [address] [address] Dec, Thoracic neuritis M54.14 and Lumbar neur itis M54.16 [facility] [address] [address] Nov, [facility] [address] [address] 14 Sep, 2014 [facility] [address] [address] Sep, [facility] [address] [place] [address] Jul, [facility] [place] [facility] [address] [facility] [id number] [facility] [address] Jul, [facility] [place] [facility] [address] [facility] [id number] [place] [address] Jan, [facility] [place] [facility] [address] [id number] [facility] [place] [address] Jan, [facility] [place] [facility] [address] [id number] [facility] [place] [address] Jan, [facility] [place] [facility] [address] [facility] [id number] [facility] [address] Jan, [facility] [place] [facility] [address] [id number] [place] [address] Jan, [facility] [place] [facility] [address] [id number] [place] [address] Jan, [facility] [place] [facility] [address] [id number] [place] [address] Dec, [facility] [place] [facility] [address] [id number] [place] [address] Dec, [facility] [place] [facility] [address] [id number] [place] [address] Dec, [facility] [place] [facility] [address] [id number] [place] [address] Dec, [facility] [place] [facility] [address] [id number] [place] [address] Nov, [facility] [place] [facility] [address] [id number] [place] [address] Nov, [facility] [place] [facility] [address] [id number] [place] [address] Nov, [facility] [place] [facility] [address] [id number] [place] [address] Nov, [facility] [place] [facility] [address] [id number] [place] [address] October, [facility] [place] [facility] [address] [id number] [place] [address] October, [facility] [address] [id number] [place] [address] October, [facility] [place] [facility] [address] [id number] [place] [address] October, [facility] [address] [id number] [place] [address] October, [facility] [place] [facility] [address] [id number] [place] [address] October, [facility] [address] [id number] [place] [address] October, [facility] [place] [facility] [address] [id number] [place] [address] October, [facility] [address] [id number] [place] [address] October, [facility] [place] [facility] [address] [id number] [place] [address] October, [facility] [place] [facility] [address] [id number] [place] [address] Sep, [facility] [place] [facility] [address] [id number] [place] [address] Sep, [facility] [place] [facility] [address] [id number] [place] [address] Sep, [facility] [place] [facility] [address] [id number] [place] [address] Sep, [facility] [place] [facility] [address] [id number] [place] [address] Sep, [facility] [place] [facility] [address] [id number] [place] [address] Aug, [facility] [place] [facility] [address] [id number] [place] [address] Aug, [facility] [place] [facility] [address] [id number] [place] [address] 07 Aug, 2012 [facility] [place] [facility] [address] [facility] [id number] [place] [address] 06 Aug, 2012 [facility] [place] [facility] [address] [id number] [place] [address] 04 Aug, 2012 [facility] [place] [facility] [address] [id number] [place] [address] 06 Jul, 2012 [facility] [place] [facility] [address] [facility] [id number] [place] [id number] 15 Jun, 2012 [facility] [place] [facility] [address] [facility] [id number] [place] [address] 14 Jun, 2012 [facility] [place] [facility] [address] [id number] [place] [address] Jun, [facility] [place] [facility] [address] [id number] [place] [address] 09 Jun, 2012 [facility] [place] [facility] [address] [id number] [place] [address] 18 May, 2012 [facility] [place] [facility] [address] [id number] [place] [address] 15 May, 2012 [facility] [place] [facility] [address] [id number] [place] [address] 14 May, 2012 [facility] [place] [facility] [address] [id number] [place] [address] 13 May, 2012 [facility] [place] [facility] [address] [id number] [place] [address] 13 May, 2012 [facility] [place] [facility] [address] [id number] [place] [address] 15 Apr, 2012 [facility] [place] [facility] [address] [id number] [place] [address] 15 Apr, 2012 [facility] [place] [facility] [address] [id number] [place] [address] 12 Apr, 2012 [facility] [place] [facility] [address] [id number] [place] [address] Apr, [facility] [place] [facility] [address] [id number] [place] [address] Apr, [facility] [place] [facility] [address] [id number] [place] [address] Apr, [facility] [place] [facility] [address] [id number] [place] [address] Apr, [facility] [place] [facility] [address] [id number] [place] [address] Apr, [facility] [place] [facility] [address] [id number] [place] [address] Mar, [facility] [place] [facility] [address] [id number] [place] [address] Mar, [facility] [place] [facility] [address] [id number] [place] [address] Feb, [facility] [place] [facility] [address] [id number] [place] [address] Jan, [facility] [place] [facility] [address] [id number] [place] [address] Jan, [facility] [place] [facility] [address] [id number] [place] [address] Dec, [facility] [place] [facility] [address] [id number] [place] [address] Dec, [facility] [place] [facility] [address] [id number] [place] [address] October, [facility] [place] [facility] [address] [id number] [place] [address] October, [facility] [place] [facility] [address] [id number] [place] [address] October, [facility] [place] [facility] [address] [place] [id number] [place] [address] October, [facility] [place] [facility] [address] [id number] [place] [address] October, [facility] [place] [facility] [address] [id number] [place] [address] Sep, [facility] [place] [facility] [address] [id number] [place] [address] Sep, [facility] [place] [facility] [address] [id number] [place] [address] Sep, [facility] [place] [facility] [address] [id number] [place] [address] Sep, [facility] [place] [facility] [address] [id number] [place] [address] Aug, [facility] [place] [facility] [address] [id number] [place] [address] Jul, [facility] [place] [facility] [address] [id number] [place] [address] Jul, [facility] [place] [facility] [address] [id number] [place] [address] Jul, [facility] [address] [place] [id number] [place] [address] Jun, [facility] [place] [facility] [address] [id number] [place] [address] Jun, [facility] [place] [facility] [address] [place] [id number] [place] [address] May, [facility] [place] [facility] [address] [id number] [place] [address] May, [facility] [place] [facility] [address] [place] [id number] [place] [address] May, [facility] [place] [facility] [address] [id number] [place] [address] Apr, [facility] [place] [facility] [address] [id number] [place] [address] Apr, [facility] [place] [facility] [address] [id number] [place] [address] Apr, [facility] [place] [facility] [address] [id number] [place] [address] Apr, [facility] [place] [facility] [address] [id number] [place] [address] Apr, [facility] [address] [id number] [place] [address] Mar, [facility] [address] [id number] [place] [address] Mar, [facility] [address] [id number] [place] [address] Mar, IMMUNIZATIONS No Known Immunizations SOCIAL HISTORY [...]
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
--- NOTE | 2019-09-13 07:20 | NUR ---
PATIENT HAD LG SOFT STOOL
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
--- OUTSIDE RECORDS SUMMARY | 2019-09-13 07:21 | XMS REPORT ---
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.011 Active 529217820 Problem Lumbago with sciatica, right side M54.41 Active 584240232 Problem Other chronic pain G89.29 Active 8 2378296 Problem Bipolar disorder, current episode mixed, moderate F31.62 Active 362170604 Problem Anxiety F41.9 Active [id number] ALLERGIES No Information ENCOUNTERS Encounter Location Date Diagnosis [place] [id number] [place] [phone] Aug, Lumbago with sciatica, right side M54.41 and BMI 40.0-44.9, adult Z68.41 [place] [id number] [place] [address] Jul, BMI 40.0-44.9, adult Z68.41 [place] [address] [address] [place] [id number] [address] [place] [address] Jul, Lumbago with sciatica, right side M54.41 and Other chronic pain G89.29 [place] [address] [facility] [id number] [address] [place] [phone] Jul, [place] [address] [address] [place] [id number] [address] [place] [address] Jun, Other chronic pain G89.29 an d BMI 40.0-44.9, adult Z68.41 [place] [address] [address] [place] [id number] [address] [place] [phone] Jun, [facility] [address] [id number] [address] [place] [phone] Jun, [facility] [address] [facility] [id number] [address] [place] [address] Jun, [facility] [address] [facility] [id number] [address] [place] [address] Jun, BMI 40.0-44.9, adult Z68.41 ; Lumbago with sciatica, right side M54.41 and Intractable migraine without aura and with status migrainosus G43.011 [facility] [address] [id number] [address] [place] [address] May, BMI 40.0-44.9, adult Z68.41 [facility] [address] [facility] [id number] [address] [place] [phone] May, BMI 40.0-44.9, adult Z68.41 [facility] [address] [facility] [id number] [address] [place] [phone] May, BMI 40.0-44.9, adult Z68.41 [facility] [address] [facility] [id number] [address] [place] [phone] Apr, [facility] [address] [facility] [id number] [address] [place] [address] Apr, BMI 40.0-44.9, adult Z68.41 ; Lumbago with sciatica, right side M54.41 and Intractable migraine without aura and with status migrainosus G43.011 [facility] [address] [id number] [address] [place] [phone] Apr, [facility] [address] [facility] [id number] [address] [place] [phone] Apr, [facility] [address] [facility] [id number] [address] [place] [phone] Apr, [facility] [address] [id number] [address] [place] [phone] Mar, Anxiety F41.9 [facility] [address] [id number] [address] [place] [phone] Mar, [facility] [address] [id number] [address] [place] [phone] Mar, [facility] [address] [id number] [address] [place] [phone] Mar, [facility] [address] [id number] [address] [place] [phone] Mar, [facility] [address] [id number] [address] [place] [phone] Mar, [facility] [address] [facility] [id number] [address] [place] [phone] Mar, Flexural eczema L20.82 [facility] [address] [facility] [id number] [address] [place] [phone] Mar, Anxiety F41.9 [facility] [address] [id number] [address] [place] [phone] Feb, Anxiety F41.9 and Lumbago wi th sciatica, right side M54.41 [facility] [address] [facility] [id number] [address] [place] [phone] Feb, [facility] [address] [id number] [address] [place] [phone] Feb, Anxiety F41.9 [facility] [address] [id number] [address] [place] [phone] Jan, Anxiety F41.9 and Lumbago wi th sciatica, right side M54.41 [facility] [address] [facility] [id number] [address] [place] [phone] Jan, Lumbago with sciatica, right side M54.41 [facility] [address] [facility] [id number] [address] [place] [phone] Jan, Anxiety F41.9 [facility] [address] [id number] [address] [place] [phone] Dec, Lumbago with sciatica, right side M54.41 and Anxiety F41.9 [facility] [address] [id number] [address] [place] [phone] Dec, Anxiety F41.9 and Lumbago wi th sciatica, right side M54.41 [facility] [address] [id number] [address] [place] [phone] Nov, [facility] [address] [id number] [address] [place] [phone] Nov, [facility] [address] [id number] [address] [place] [phone] Nov, Anxiety F41.9 and 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 [facility] [address] [id number] [address] [place] [phone] Nov, Anxiety F41.9 [facility] [address] [id number] [address] [place] [phone] October, Anxiety F41.9 ; Low back [place] n M54.5 and Pain in right knee M25.561 [facility] [address] [id number] [address] [place] [phone] Sep, Lumbago with sciatica, right side M54.41 [facility] [address] [id number] [address] [place] [phone] Sep, [facility] [address] [id number] [address] [place] [phone] Aug, Lumbago with sciatica, right side M54.41 [facility] [address] [id number] [address] [place] [phone] Aug, [facility] [address] [id number] [address] [place] [phone] Aug, [facility] [address] [id number] [address] [place] [phone] Aug, [facility] [address] [id number] [address] [place] [phone] Aug, Fever and chills R50.9 [facility] [address] [id number] [address] [place] [phone] Aug, Bipolar disorder, current ep isode mixed, moderate F31.62 and Other chronic pain G89.29 [facility] [address] [id number] [address] [place] [phone] Aug, Lumbago with sciatica, right side M54.41 [facility] [address] [id number] [address] [place] [id number] Aug, [facility] [address] [facility] [id number] [address] [place] [phone] Jul, Cellulitis of back except bu ttock L03.312 [facility] [address] [id number] [address] [place] [phone] Jul, [facility] [address] [id number] [address] [place] [phone] Jul, [facility] [address] [id number] [address] [place] [id number] Jul, Lumbago with sciatica, right side M54.41 [facility] [address] [id number] [address] [place] [phone] Jul, Lumbago with sciatica, right side M54.41 [facility] [address] [id number] [address] [place] [phone] Jun, [facility] [address] [id number] [address] [place] [phone] May, Lumbago with sciatica, right side M54.41 and Bipolar disorder, current episode mixed, moderate F31.62 [facility] [address] [id number] [address] [place] [phone] May, [facility] [address] [id number] [address] [place] [phone] May, Periodontal abscess K05.219 [facility] [address] [id number] [address] [place] [phone] Apr, Lumbago with sciatica, right side M54.41 [facility] [address] [id number] [address] [place] [phone] Apr, [facility] [address] [id number] [address] [place] [phone] Mar, Lumbago with sciatica, right side M54.41 and Other chronic pain G89.29 [facility] [address] [id number] [address] [place] [phone] 17 Mar, 2016 [facility] [address] [id number] [address] [place] [phone] 14 Mar, 2016 [facility] [address] [id number] [address] [place] [phone] 13 Mar, 2016 [facility] [address] [facility] [id number] [address] [place] [phone] 19 Feb, 2016 Carpal tunnel syndrome of ri ght wrist G56.01 [facility] [address] [id number] [address] [place] [phone] 12 Feb, 2016 [facility] [address] [id number] [address] [place] [phone] Feb, [facility] [address] [facility] [id number] [address] [place] [phone] Jan, Pain of left hand M79.642 an d Pain in right hand M79.641 [facility] [address] [facility] [id number] [address] [place] [address] Dec, Thoracic neuritis M54.14 and Lumbar neuritis M54.16 [facility] [address] [id number] [address] [place] [address], [place] [address] 15 Nov, 2015 [facility] [address] [id number] [address] [place] [address], [place] [address] Sep, [facility] [address] [id number] [address] [place] [address], [place] [address] Sep, [facility] [address] [id number] [address] [place] [address], [place] [address] Jul, [facility] [address] [id number] [address] [place] [address], [place] [address] Jul, [facility] [address] [id number] [address] [place] [address], [place] [address] Jan, [facility] [address] [id number] [address] [place] [address], [place] [address] Jan, [facility] [address] [id number] [address] [place] [address], [place] [address] Jan, [facility] [address] [id number] [address] [place] [address], [place] [address] Jan, [facility] [address] [id number] [address] [place] [address], [place] [address] Jan, [facility] [address] [id number] [address] [place] [address], [place] [address] Jan, [facility] [address] [id number] [address] [place] [address], [place] [address] Dec, [facility] [address] [id number] [address] [place] [address], [place] [address] Dec, [facility] [address] [id number] [address] [place] [address], [place] [address] Dec, [facility] [address] [id number] [address] [place] [address], [place] [address] Dec, [facility] [address] [id number] [address] [place] [address], [place] [address] 12 Nov, 2012 [facility] [address] [id number] [address] [place] [address], [place] [address] Nov, [facility] [address] [id number] [address] [place] [address], [place] [address] 07 Nov, 2012 [facility] [address] [id number] [address] [place] [address], [place] [address] Nov, [facility] [address] [id number] [address] [place] [address], [place] [address] October, [facility] [address] [id number] [address] [place] [address], [place] [address] October, [facility] [address] [id number] [address] [place] [address], [place] [address] October, [facility] [address] [id number] [address] [place] [address], [place] [address] October, [facility] [address] [id number] [address] [place] [address], [place] [address] October, [facility] [address] [id number] [address] [place] [address], [place] [address] October, [facility] [address] [id number] [address] [place] [address], [place] [address] October, [facility] [address] [id number] [address] [place] [address], [place] [address] October, [facility] [address] [id number] [address] [place] [address], [place] [address] October, [facility] [address] [id number] [address] [place] [address], [place] [address] October, [facility] [address] [id number] [address] [place] [address], [place] [address] Sep, [facility] [address] [id number] [address] [place] [address], [place] [address] Sep, [facility] [address] [id number] [address] [place] [address], [place] [address] Sep, [facility] [address] [id number] [address] [place] [address], [place] [address] Sep, [facility] [address] [id number] [address] [place] [address], [place] [address] Sep, [facility] [address] [id number] [address] [place] [address], [place] [address] Aug, [facility] [address] [id number] [address] [place] [address], [place] [address] 08 Aug, 2012 [facility] [address] [id number] [address] [place] [address], [place] [address] 07 Aug, 2012 [facility] [address] [id number] [address] [place] [address], [place] [address] Aug, [facility] [address] [id number] [address] [place] [phone] Aug, [facility] [address] [id number] [address] [place] [address], [place] [address] Jul, [facility] [address] [id number] [address] [place] [id number] Jun, [facility] [address] [id number] [address] [place] [phone] Jun, [facility] [address] [id number] [address] [place] [phone] Jun, [facility] [address] [id number] [address] [place] [phone] Jun, [facility] [address] [id number] [address] [place] [phone] May, [facility] [address] [id number] [address] [place] [address] May, [facility] [address] [id number] [address] [place] [phone] 14 May, 2012 [facility] [address] [id number] [address] [place] [address], [place] [address] 13 May, 2012 [facility] [address] [id number] [address] [place] [address], [place] [address] 13 May, 2012 [facility] [address] [id number] [address] [place] [address], [place] [address] 15 Apr, 2012 [facility] [address] [id number] [address] [place] [address], [place] [address] 15 Apr, 2012 [facility] [address] [id number] [address] [place] [address], [place] [address] Apr, [facility] [address] [id number] [address] [place] [address], [place] [address] Apr, [facility] [address] [id number] [address] [place] [address], [place] [address] Apr, [facility] [address] [id number] [address] [place] [address], [place] [address] Apr, [facility] [address] [id number] [address] [place] [address], [place] [address] Apr, [facility] [address] [id number] [address] [place] [address], [place] [address] Apr, [facility] [address] [id number] [address] [place] [address], [place] [address] Mar, [facility] [address] [id number] [address] [place] [id number] Mar, [facility] [address] [id number] [address] [place] [address], [place] [address] Feb, [facility] [address] [id number] [address] [place] [address], [place] [address] Jan, [facility] [address] [id number] [address] [place] [address], [place] [address] Jan, [facility] [address] [id number] [address] [place] [address], [place] [address] Dec, [facility] [address] [id number] [address] [place] [address], [place] [address] Dec, [facility] [address] [id number] [address] [place] [address], [place] [address] October, [facility] [address] [id number] [address] [place] [address], [place] [address] October, [facility] [address] [id number] [address] [place] [address], [place] [address] October, [facility] [address] [id number] [address] [place] [address], [place] [address] October, [facility] [address] [id number] [address] [place] [address], [place] [address] October, [facility] [address] [id number] [address] [place] [address], [place] [address] Sep, [facility] [address] [id number] [address] [place] [address], [place] [address] Sep, [facility] [address] [id number] [address] [place] [address], [place] [address] Sep, [facility] [address] [id number] [address] [place] [address], [place] [address] Sep, [facility] [address] [id number] [address] [place] [address], [place] [address] Aug, [facility] [address] [id number] [address] [place] [address], [place] [address] Jul, [facility] [address] [id number] [address] [place] [address], [place] [id number] Jul, [facility] [address] [id number] [address] [place] [address], [place] [id number] Jul, [facility] [address] [id number] [address] [address] Jun, [facility] [address] [id number] [address] [place] [phone] Jun, [facility] [address] [id number] [address] [place] [phone] May, [facility] [address] [id number] [address] [place] [phone] May, [facility] [address] [id number] [address] [place] [phone] May, [facility] [address] [id number] [address] [place] [phone] Apr, [facility] [address] [id number] [address] [place] [id number] Apr, [facility] [address] [id number] [address] [place] [phone] Apr, [facility] [address] [id number] [address] [place] [phone] Apr, [facility] [address] [id number] [address] [place] [phone] Apr, [facility] [address] [id number] [address] [place] [phone] Mar, [facility] [address] [id number] [address] [place] [id number] Mar, [facility] [address] [id number] [address] [place] [id number] Mar, IMMUNIZATIONS No Known Immunizations SOCIAL HISTORY Never Assessed REASON FOR VISIT EMR-[facility] PLAN OF [...]
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
--- OUTSIDE RECORDS SUMMARY | 2019-09-13 07:22 | XMS REPORT ---
Author Author Tiffany BALDERAS Organization [facility] Address [address] [place] [address] Care Team Providers Care Dip Painter Name Role Phone DESHAWN BALDERAS Unavailable PROBLEMS Type Condition ICD9-CM Code [id number] Code Onset Dates Condition S tatus SNOMED Code Problem Intractable migraine without aura and with status migr ainosus G43.011 Active 537520887 Problem Flexural eczema L20.82 Active 5709 2005 Problem Other chronic pain G89.29 Active 8 2346141 Problem Lumbago with sciatica, right side M54.41 Active 826039586 Problem Anxiety F41.9 Active 34631307 Problem Bipolar disorder, current episode mixed, moderate F31.62 Active [id number] ALLERGIES No Information ENCOUNTERS Encounter Location Date Diagnosis [place] [address] [facility] [id number] [address] [place] [address] Aug, Lumbago with sciatica, right side M54.41 and BMI 40.0-44.9, adult Z68.41 [place] [id number] [place] [address] Jul, BMI 40.0-44.9, adult Z68.41 [place] [address] [place] [id number] [address] [place] [address] Jul, Lumbago with sciatica, right side M54.41 and Other chronic pain G89.29 [place] [address] [place] [id number] [address] [place] [address] Jul, [place] [address] [facility] [id number] [address] [place] [address] Jun, Other chronic pain G89.29 an d BMI 40.0-44.9, adult Z68.41 [place] [address] [facility] [id number] [address] [place] [address] Jun, [facility] [address] [facility] [id number] [address] [place] [address] Jun, [facility] [address] [facility] [id number] [address] [place] [address] Jun, [facility] [address] [place] [id number] [address] [place] [address] Jun, BMI 40.0-44.9, adult Z68.41 ; Lumbago with sciatica, right side M54.41 and Intractable migraine without aura and with status migrainosus G43.011 [facility] [address] [place] [id number] [address] [place] [address] May, BMI 40.0-44.9, adult Z68.41 [facility] [address] [place] [id number] [address] [place] [address] May, BMI 40.0-44.9, adult Z68.41 [facility] [address] [place] [id number] [address] [place] [id number] May, BMI 40.0-44.9, adult Z68.41 [facility] [address] [place] [id number] [address] [place] [address] Apr, [facility] [address] [place] [id number] [address] [place] [address] Apr, BMI 40.0-44.9, adult Z68.41 ; Lumbago with sciatica, right side M54.41 and Intractable migraine without aura and with status migrainosus G43.011 [facility] [address] [place] [id number] [address] [place] [phone] Apr, [facility] [address] [place] [id number] [address] [place] [address] Apr, [facility] [address] [place] [id number] [address] [place] [address] Apr, [facility] [address] [id number] [address] [place] [phone] Mar, Anxiety F41.9 [facility] [address] [id number] [address] [place] [phone] Mar, [facility] [address] [id number] [address] [place] [id number] Mar, [facility] [address] [id number] [address] [place] [address] Mar, [facility] [address] [id number] [address] [place] [phone] Mar, [facility] [address] [id number] [address] [place] [address] Mar, [facility] [address] [id number] [address] [place] [address] Mar, Flexural eczema L20.82 [facility] [address] [id number] [address] [place] [address] Mar, Anxiety F41.9 [facility] [address] [id number] [address] [place] [phone] Feb, Anxiety F41.9 and Lumbago wi th sciatica, right side M54.41 [facility] [address] [id number] [address] [place] [phone] Feb, [facility] [address] [id number] [address] [place] [address] Feb, Anxiety F41.9 [facility] [address] [id number] [address] [place] [address] Jan, Anxiety F41.9 and Lumbago wi th sciatica, right side M54.41 [facility] [address] [id number] [address] [place] [phone] Jan, Lumbago with sciatica, right side M54.41 [facility] [address] [id number] [address] [place] [address] Jan, Anxiety F41.9 [facility] [address] [id number] [address] [place] [address] Dec, Lumbago with sciatica, right side M54.41 and Anxiety F41.9 [facility] [address] [id number] [address] [place] [address] Dec, Anxiety F41.9 and Lumbago wi th sciatica, right side M54.41 [facility] [address] [id number] [address] [place] [address] Nov, [facility] [address] [id number] [address] [place] [phone] Nov, [facility] [address] [id number] [address] [place] [phone] Nov, Anxiety F41.9 and 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 [facility] [address] [id number] [address] [place] [phone] Nov, Anxiety F41.9 [facility] [address] [id number] [address] [place] [address] October, Anxiety F41.9 ; Low back [place] n M54.5 and Pain in right knee M25.561 [facility] [address] [id number] [address] [place] [phone] Sep, Lumbago with sciatica, right side M54.41 [facility] [address] [id number] [address] [place] [address] Sep, [facility] [address] [id number] [address] [place] [phone] Aug, Lumbago with sciatica, right side M54.41 [facility] [address] [id number] [address] [place] [phone] Aug, [facility] [address] [facility] [id number] [address] [place] [phone] Aug, [facility] [address] [facility] [id number] [address] [place] [phone] Aug, [facility] [address] [facility] [id number] [address] [place] [address] Aug, Fever and chills R50.9 [facility] [address] [place] [id number] [address] [place] [phone] Aug, Bipolar disorder, current ep isode mixed, moderate F31.62 and Other chronic pain G89.29 [facility] [address] [place] [id number] [address] [place] [address] Aug, Lumbago with sciatica, right side M54.41 [facility] [address] [place] [id number] [address] [place] [phone] Aug, [facility] [address] [place] [id number] [address] [place] [phone] Jul, Cellulitis of back except bu ttock L03.312 [facility] [address] [place] [id number] [address] [place] [phone] Jul, [facility] [address] [place] [id number] [address] [place] [phone] Jul, [facility] [address] [facility] [id number] [address] [place] [phone] Jul, Lumbago with sciatica, right side M54.41 [facility] [address] [facility] [id number] [address] [place] [phone] Jul, Lumbago with sciatica, right side M54.41 [facility] [address] [facility] [id number] [address] [place] [phone] Jun, [facility] [address] [place] [id number] [address] [place] [phone] May, Lumbago with sciatica, right side M54.41 and Bipolar disorder, current episode mixed, moderate F31.62 [facility] [address] [id number] [address] [place] [phone] May, [facility] [address] [id number] [address] [place] [phone] May, Periodontal abscess K05.219 [facility] [address] [id number] [address] [place] [phone] Apr, Lumbago with sciatica, right side M54.41 [facility] [address] [id number] [address] [place] [phone] Apr, [facility] [address] [id number] [address] [place] [phone] Mar, Lumbago with sciatica, right side M54.41 and Other chronic pain G89.29 [facility] [address] [id number] [address] [place] [phone] 17 Mar, 2016 [facility] [address] [id number] [address] [place] [phone] 14 Mar, 2016 [facility] [address] [id number] [address] [place] [phone] 13 Mar, 2016 [facility] [address] [id number] [address] [place] [phone] 19 Feb, 2016 Carpal tunnel syndrome of ri ght wrist G56.01 [facility] [address] [id number] [address] [place] [id number] 12 Feb, 2016 [facility] [address] [id number] [address] [place] [phone] 12 Feb, 2016 [facility] [address] [id number] [address] [place] [phone] Jan, Pain of left hand M79.642 an d Pain in right hand M79.641 [facility] [address] [id number] [address] [place] [phone] Dec, Thoracic neuritis M54.14 and Lumbar neuritis M54.16 [facility] [address] [id number] [address] [place] [phone] Nov, [facility] [address] [id number] [address] [place] [phone] Sep, [facility] [address] [id number] [address] [place] [address], [place] [address] Sep, [facility] [address] [id number] [address] [place] [address], [place] [address] Jul, [facility] [address] [id number] [address] [place] [phone] Jul, [facility] [address] [id number] [address] [place] [phone] Jan, [facility] [address] [id number] [address] [place] [phone] Jan, [facility] [address] [id number] [address] [place] [phone] Jan, [facility] [address] [id number] [address] [place] [phone] Jan, [facility] [address] [id number] [address] [place] [phone] Jan, [facility] [address] [id number] [address] [place] [phone] Jan, [facility] [address] [id number] [address] [place] [phone] Dec, [facility] [address] [id number] [address] [place] [id number] Dec, [facility] [address] [id number] [address] [place] [phone] Dec, [facility] [address] [id number] [address] [place] [phone] Dec, [facility] [address] [id number] [address] [place] [address], [place] [address] Nov, [facility] [address] [id number] [address] [place] [address], [place] [address] Nov, [facility] [address] [id number] [address] [place] [address], [place] [address] Nov, [facility] [address] [id number] [address] [place] [address], [place] [address] Nov, [facility] [address] [id number] [address] [place] [address], [place] [address] October, [facility] [address] [id number] [address] [place] [address], [place] [address] October, [facility] [address] [id number] [address] [place] [address], [place] [address] October, [facility] [address] [id number] [address] [place] [address], [place] [address] October, [facility] [address] [id number] [address] [place] [address], [place] [address] October, [facility] [address] [id number] [address] [place] [address], [place] [address] October, [facility] [address] [id number] [address] [place] [address], [place] [address] October, [facility] [address] [id number] [address] [place] [address], [place] [address] October, [facility] [address] [id number] [address] [place] [address], [place] [address] October, [facility] [address] [id number] [address] [place] [address], [place] [address] October, [facility] [address] [id number] [address] [place] [address], [place] [address] Sep, [facility] [address] [id number] [address] [place] [address], [place] [address] 12 Sep, 2012 [facility] [address] [id number] [address] [place] [address], [place] [address] 06 Sep, 2012 [facility] [address] [id number] [address] [place] [address], [place] [address] 04 Sep, 2012 [facility] [address] [id number] [address] [place] [address], [place] [address] 04 Sep, 2012 [facility] [address] [id number] [address] [place] [address], [place] [address] 12 Aug, 2012 [facility] [address] [id number] [address] [place] [address], [place] [address] 08 Aug, 2012 [facility] [address] [id number] [address] [place] [address], [place] [address] 07 Aug, 2012 [facility] [address] [id number] [address] [place] [address], [place] [address] 06 Aug, 2012 [facility] [address] [id number] [address] [place] [address], [place] [address] 04 Aug, 2012 [facility] [address] [id number] [address] [place] [address], [place] [address] 06 Jul, 2012 [facility] [address] [id number] [address] [place] [address] [id number] 15 Jun, 2012 [facility] [address] [id number] [address] [place] [address], [place] [address] 14 Jun, 2012 [facility] [address] [id number] [address] [place] [address], [place] [address] Jun, [facility] [address] [id number] [address] [place] [address], [place] [address] Jun, [facility] [address] [id number] [address] [place] [address], [place] [address] May, [facility] [address] [id number] [address] [place] [address], [place] [address] May, [facility] [address] [id number] [address] [place] [address], [place] [address] 14 May, 2012 [facility] [address] [id number] [address] [place] [address], [place] [address] 13 May, 2012 [facility] [address] [id number] [address] [place] [address], [place] [address] 13 May, 2012 [facility] [address] [id number] [address] [place] [address], [place] [address] 15 Apr, 2012 [facility] [address] [id number] [address] [place] [address], [place] [address] 15 Apr, 2012 [facility] [address] [id number] [address] [place] [address], [place] [address] 12 Apr, 2012 [facility] [address] [id number] [address] [place] [address], [place] [address] Apr, [facility] [address] [id number] [address] [place] [address], [place] [address] Apr, [facility] [address] [id number] [address] [place] [address], [place] [address] Apr, [facility] [address] [id number] [address] [place] [address], [place] [address] Apr, [facility] [address] [id number] [address] [place] [address], [place] [address] Apr, [facility] [address] [id number] [address] [place] [id number] 15 Mar, 2012 [facility] [address] [id number] [address] [place] [address], [place] [address] Mar, [facility] [address] [id number] [address] [place] [address], [place] [address] Feb, [facility] [address] [id number] [address] [place] [address], [place] [address] Jan, [facility] [address] [id number] [address] [place] [address], [place] [address] Jan, [facility] [address] [id number] [address] [place] [address], [place] [address] Dec, [facility] [address] [id number] [address] [place] [address], [place] [address] Dec, [facility] [address] [id number] [address] [place] [address], [place] [address] October, [facility] [address] [id number] [address] [place] [address], [place] [address] October, [facility] [address] [id number] [address] [place] [address], [place] [address] October, [facility] [address] [id number] [address] [place] [address], [place] [address] October, [facility] [address] [id number] [address] [place] [address], [place] [address] October, [facility] [address] [id number] [address] [place] [address], [place] [address] Sep, [facility] [address] [id number] [address] [place] [address], [place] [address] Sep, [facility] [address] [id number] [address] [place] [address], [place] [address] Sep, [facility] [address] [id number] [address] [place] [address], [place] [address] Sep, [facility] [address] [id number] [address] [place] [address], [place] [address] Aug, [facility] [address] [id number] [address] [place] [address], [place] [address] Jul, [facility] [address] [id number] [address] [place] [address], [place] [address] Jul, [facility] [address] [id number] [address] [place] [address], [place] [address] Jul, [facility] [address] [id number] [address] [place] [phone] Jun, [facility] [address] [id number] [address] [place] [id number] Jun, [facility] [address] [id number] [address] [place] [phone] May, [facility] [address] [id number] [address] [place] [phone] May, [facility] [address] [id number] [address] [place] [phone] May, [facility] [address] [id number] [address] [place] [phone] Apr, [facility] [address] [id number] [address] [place] [phone] Apr, [facility] [address] [id number] [address] [place] [phone] Apr, [facility] [address] [id number] [address] [place] [phone] Apr, [facility] [address] [id number] [address] [place] [phone] Apr, [facility] [address] [id number] [address] [place] [phone] Mar, [facility] [address] [id number] [address] [place] [phone] Mar, [facility] [address] [id number] [address] [place] [phone] Mar, IMMUNIZATIONS No Known Immunizations SOCIAL HISTORY Never Assessed REASON FOR VISIT Medication refill request PLAN OF CARE VITAL SIGNS MEDICATIONS Unknown Medications RESULTS No Results PROCEDURES No Known procedures INSTRUCTIONS MEDICATIONS ADMINISTERED No Known Medications MEDICAL (GENERAL) HISTORY Type Description Date Medical History anxiety Medical History depression Medical History emotional trauma effecting her memory Medical History migraines Hospitalization History childbirth only Hospitalization History hit by [facility]
--- OUTSIDE RECORDS SUMMARY | 2019-09-13 07:22 | XMS REPORT ---
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 Active 286215553 Problem Flexural eczema L20.82 Active 5709 2005 Problem Other chronic pain G89.29 Active 8 6061179 Problem Lumbago with sciatica, right side M54.41 Active 388622423 Problem Anxiety F41.9 Active 53588297 Problem Bipolar disorder, current episode mixed, moderate F31.62 Active [id number] ALLERGIES No Information ENCOUNTERS Encounter Location Date Diagnosis [place] [address] [address] [facility] [id number] [address] [place] [id number] Aug, Lumbago with sciatica, right side M54.41 and BMI 40.0-44.9, adult Z68.41 [place] [id number] [place] [address] Jul, BMI 40.0-44.9, adult Z68.41 [place] [address] [address] [place] [id number] [address] [place] [address] Jul, Lumbago with sciatica, right side M54.41 and Other chronic pain G89.29 [place] [address] [address] [place] [id number] [address] [place] [id number] Jul, [place] [address] [address] [facility] [id number] [address] [place] [id number] Jun, Other chronic pain G89.29 an d BMI 40.0-44.9, adult Z68.41 [place] [address] [address] [facility] [id number] [address] [place] [id number] Jun, [facility] [address] [facility] [id number] [address] [place] [id number] Jun, [facility] [address] [facility] [id number] [address] [place] [id number] Jun, [facility] [address] [place] [id number] [address] [place] [address] Jun, BMI 40.0-44.9, adult Z68.41 ; Lumbago with sciatica, right side M54.41 and Intractable migraine without aura and with status migrainosus G43.011 [facility] [address] [place] [id number] [address] [place] [id number] May, BMI 40.0-44.9, adult Z68.41 [facility] [address] [place] [id number] [address] [place] [address] May, BMI 40.0-44.9, adult Z68.41 [facility] [address] [place] [id number] [address] [place] [id number] May, BMI 40.0-44.9, adult Z68.41 [facility] [address] [place] [id number] [address] [place] [id number] Apr, [facility] [address] [place] [id number] [address] [place] [address] Apr, BMI 40.0-44.9, adult Z68.41 ; Lumbago with sciatica, right side M54.41 and Intractable migraine without aura and with status migrainosus G43.011 [facility] [address] [place] [id number] [address] [place] [address] Apr, [facility] [address] [place] [id number] [address] [place] [id number] Apr, [facility] [address] [place] [id number] [address] [place] [id number] Apr, [facility] [address] [id number] [address] [place] [phone] Mar, Anxiety F41.9 [facility] [address] [id number] [address] [place] [id number] Mar, [facility] [address] [id number] [address] [place] [id number] Mar, [facility] [address] [id number] [address] [place] [id number] Mar, [facility] [address] [id number] [address] [place] [id number] Mar, [facility] [address] [id number] [address] [place] [id number] Mar, [facility] [address] [id number] [address] [place] [address] Mar, Flexural eczema L20.82 [facility] [address] [id number] [address] [place] [id number] Mar, Anxiety F41.9 [facility] [address] [id number] [address] [place] [id number] Feb, Anxiety F41.9 and Lumbago wi th sciatica, right side M54.41 [facility] [address] [id number] [address] [place] [address] Feb, [facility] [address] [id number] [address] [place] [id number] Feb, Anxiety F41.9 [facility] [address] [id number] [address] [place] [id number] Jan, Anxiety F41.9 and Lumbago wi th sciatica, right side M54.41 [facility] [address] [id number] [address] [place] [id number] Jan, Lumbago with sciatica, right side M54.41 [facility] [address] [id number] [address] [place] [id number] Jan, Anxiety F41.9 [facility] [address] [id number] [address] [place] [id number] Dec, Lumbago with sciatica, right side M54.41 and Anxiety F41.9 [facility] [address] [id number] [address] [place] [address] Dec, Anxiety F41.9 and Lumbago wi th sciatica, right side M54.41 [facility] [address] [id number] [address] [place] [id number] Nov, [facility] [address] [id number] [address] [place] [id number] Nov, [facility] [address] [id number] [address] [place] [id number] Nov, Anxiety F41.9 and Other orientor 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 [facility] [address] [id number] [address] [place] [address] Nov, Anxiety F41.9 [facility] [address] [id number] [address] [place] [id number] October, Anxiety F41.9 ; Low back [place] n M54.5 and Pain in right knee M25.561 [facility] [address] [id number] [address] [place] [id number] Sep, Lumbago with sciatica, right side M54.41 [facility] [address] [id number] [address] [place] [id number] Sep, [facility] [address] [id number] [address] [place] [id number] Aug, Lumbago with sciatica, right side M54.41 [facility] [address] [id number] [address] [place] [id number] Aug, [facility] [address] [facility] [id number] [address] [place] [id number] Aug, [facility] [address] [facility] [id number] [address] [place] [address] Aug, [facility] [address] [facility] [id number] [address] [place] [id number] Aug, Fever and chills R50.9 [facility] [address] [place] [id number] [address] [place] [id number] Aug, Bipolar disorder, current ep isode mixed, moderate F31.62 and Other chronic pain G89.29 [facility] [address] [place] [id number] [address] [place] [id number] Aug, Lumbago with sciatica, right side M54.41 [facility] [address] [place] [id number] [address] [place] [id number] Aug, [facility] [address] [place] [id number] [address] [place] [id number] Jul, Cellulitis of back except bu ttock L03.312 [facility] [address] [place] [id number] [address] [place] [id number] Jul, [facility] [address] [place] [id number] [address] [place] [id number] Jul, [facility] [address] [facility] [id number] [address] [place] [address] Jul, Lumbago with sciatica, right side M54.41 [facility] [address] [facility] [id number] [address] [place] [id number] Jul, Lumbago with sciatica, right side M54.41 [facility] [address] [facility] [id number] [address] [place] [id number] Jun, [facility] [address] [place] [id number] [address] [place] [address] May, Lumbago with sciatica, right side M54.41 and Bipolar disorder, current episode mixed, moderate F31.62 [facility] [address] [id number] [address] [place] [id number] May, [facility] [address] [id number] [address] [place] [id number] May, Periodontal abscess K05.219 [facility] [address] [id number] [address] [place] [id number] Apr, Lumbago with sciatica, right side M54.41 [facility] [address] [id number] [address] [place] [id number] Apr, [facility] [address] [id number] [address] [place] [id number] Mar, Lumbago with sciatica, right side M54.41 and Other chronic pain G89.29 [facility] [address] [id number] [address] [place] [id number] 17 Mar, 2016 [facility] [address] [id number] [address] [place] [id number] 14 Mar, 2016 [facility] [address] [id number] [address] [place] [id number] 13 Mar, 2016 [facility] [address] [id number] [address] [place] [id number] 19 Feb, 2016 Carpal tunnel syndrome of ri ght wrist G56.01 [facility] [address] [id number] [address] [place] [id number] 12 Feb, 2016 [facility] [address] [id number] [address] [place] [id number] 12 Feb, 2016 [facility] [address] [id number] [address] [place] [id number] Jan, Pain of left hand M79.642 an d Pain in right hand M79.641 [facility] [address] [id number] [address] [place] [id number] Dec, Thoracic neuritis M54.14 and Lumbar neuritis M54.16 [facility] [address] [id number] [address] [place] [phone] Nov, [facility] [address] [id number] [address] [place] [id number] Sep, [facility] [address] [id number] [address] [place] [address], [place] [address] Sep, [facility] [address] [id number] [address] [place] [address], [place] [address] Jul, [facility] [address] [id number] [address] [place] [id number] Jul, [facility] [address] [id number] [address] [place] [id number] Jan, [facility] [address] [id number] [address] [place] [id number] Jan, [facility] [address] [id number] [address] [place] [phone] Jan, [facility] [address] [id number] [address] [place] [id number] Jan, [facility] [address] [id number] [address] [place] [id number] Jan, [facility] [address] [id number] [address] [place] [id number] Jan, [facility] [address] [id number] [address] [place] [phone] Dec, [facility] [address] [id number] [address] [place] [id number] Dec, [facility] [address] [id number] [address] [place] [phone] Dec, [facility] [address] [id number] [address] [place] [id number] Dec, [facility] [address] [id number] [address] [place] [address], [place] [address] Nov, [facility] [address] [id number] [address] [place] [address], [place] [address] Nov, [facility] [address] [id number] [address] [place] [address], [place] [address] Nov, [facility] [address] [id number] [address] [place] [address], [place] [address] Nov, [facility] [address] [id number] [address] [place] [address], [place] [address] October, [facility] [address] [id number] [address] [place] [address], [place] [address] October, [facility] [address] [id number] [address] [place] [address], [place] [address] October, [facility] [address] [id number] [address] [place] [address], [place] [address] October, [facility] [address] [id number] [address] [place] [address], [place] [address] October, [facility] [address] [id number] [address] [place] [address], [place] [address] October, [facility] [address] [id number] [address] [place] [address], [place] [address] October, [facility] [address] [id number] [address] [place] [address], [place] [address] October, [facility] [address] [id number] [address] [place] [address], [place] [address] October, [facility] [address] [id number] [address] [place] [address], [place] [address] October, [facility] [address] [id number] [address] [place] [address], [place] [address] Sep, [facility] [address] [id number] [address] [place] [address], [place] [address] 12 Sep, 2012 [facility] [address] [id number] [address] [place] [address], [place] [address] 06 Sep, 2012 [facility] [address] [id number] [address] [place] [address], [place] [address] 04 Sep, 2012 [facility] [address] [id number] [address] [place] [address], [place] [address] 04 Sep, 2012 [facility] [address] [id number] [address] [place] [address], [place] [address] 12 Aug, 2012 [facility] [address] [id number] [address] [place] [address], [place] [address] 08 Aug, 2012 [facility] [address] [id number] [address] [place] [address], [place] [address] 07 Aug, 2012 [facility] [address] [id number] [address] [place] [address], [place] [address] 06 Aug, 2012 [facility] [address] [id number] [address] [place] [address], [place] [address] 04 Aug, 2012 [facility] [address] [id number] [address] [place] [address], [place] [address] 06 Jul, 2012 [facility] [address] [id number] [address] [place] [address] [id number] 15 Jun, 2012 [facility] [address] [id number] [address] [place] [address], [place] [address] 14 Jun, 2012 [facility] [address] [id number] [address] [place] [address], [place] [address] Jun, [facility] [address] [id number] [address] [place] [address], [place] [address] Jun, [facility] [address] [id number] [address] [place] [address], [place] [address] May, [facility] [address] [id number] [address] [place] [address], [place] [address] May, [facility] [address] [id number] [address] [place] [address], [place] [address] 14 May, 2012 [facility] [address] [id number] [address] [place] [address], [place] [address] 13 May, 2012 [facility] [address] [id number] [address] [place] [address], [place] [address] 13 May, 2012 [facility] [address] [id number] [address] [place] [address], [place] [address] 15 Apr, 2012 [facility] [address] [id number] [address] [place] [address], [place] [address] 15 Apr, 2012 [facility] [address] [id number] [address] [place] [address], [place] [address] 12 Apr, 2012 [facility] [address] [id number] [address] [place] [address], [place] [address] Apr, [facility] [address] [id number] [address] [place] [address], [place] [address] Apr, [facility] [address] [id number] [address] [place] [address], [place] [address] Apr, [facility] [address] [id number] [address] [place] [address], [place] [address] Apr, [facility] [address] [id number] [address] [place] [address], [place] [address] Apr, [facility] [address] [id number] [address] [place] [id number] 15 Mar, 2012 [facility] [address] [id number] [address] [place] [address], [place] [address] Mar, [facility] [address] [id number] [address] [place] [address], [place] [address] Feb, [facility] [address] [id number] [address] [place] [address], [place] [address] Jan, [facility] [address] [id number] [address] [place] [address], [place] [address] Jan, [facility] [address] [id number] [address] [place] [address], [place] [address] Dec, [facility] [address] [id number] [address] [place] [address], [place] [address] Dec, [facility] [address] [id number] [address] [place] [address], [place] [address] October, [facility] [address] [id number] [address] [place] [address], [place] [address] October, [facility] [address] [id number] [address] [place] [address], [place] [address] October, [facility] [address] [id number] [address] [place] [address], [place] [address] October, [facility] [address] [id number] [address] [place] [address], [place] [address] October, [facility] [address] [id number] [address] [place] [address], [place] [address] Sep, [facility] [address] [id number] [address] [place] [address], [place] [address] Sep, [facility] [address] [id number] [address] [place] [address], [place] [address] Sep, [facility] [address] [id number] [address] [place] [address], [place] [address] Sep, [facility] [address] [id number] [address] [place] [address], [place] [address] Aug, [facility] [address] [id number] [address] [place] [address], [place] [address] Jul, [facility] [address] [id number] [address] [place] [address], [place] [id number] Jul, [facility] [address] [id number] [address] [place] [address], [place] [address] Jul, [facility] [address] [id number] [address] [place] [id number] Jun, [facility] [address] [id number] [address] [place] [id number] Jun, [facility] [address] [id number] [address] [place] [id number] May, [facility] [address] [id number] [address] [place] [id number] May, [facility] [address] [id number] [address] [place] [phone] May, [facility] [address] [id number] [address] [place] [id number] Apr, [facility] [address] [id number] [address] [place] [id number] Apr, [facility] [address] [id number] [address] [place] [id number] Apr, [facility] [address] [id number] [address] [place] [id number] Apr, [facility] [address] [id number] [address] [place] [id number] Apr, [facility] [address] [id number] [address] [place] [id number] Mar, [facility] [address] [id number] [address] [place] [id number] Mar, [facility] [address] [id number] [address] [place] [id number] Mar, IMMUNIZATIONS No Known Immunizations SOCIAL HISTORY [...]
--- OUTSIDE RECORDS SUMMARY | 2019-09-13 07:23 | XMS REPORT ---
Author Author Tiffany BALDERAS Organization [facility] Address [address] [place] [address] Care Team Providers Care Trucking Manager Name Role Phone DESHAWN BALDERAS Unavailable PROBLEMS Type Condition ICD9-CM Code [id number] Code Onset Dates Condition S tatus SNOMED Code Problem Anxiety F41.9 Active 94732210 Problem Bipolar disorder, current episode mixed, moderate F31.62 Active 524837184 Problem Other chronic pain G89.29 Active 8 0148087 Problem Lumbago with sciatica, right side M54.41 Active [id number] ALLERGIES Unknown Allergies SOCIAL HISTORY No smoking Hx information available PLAN OF CARE VITAL SIGNS MEDICATIONS Medication Instructions Dosage Frequency Start Date End Date Duration S tatus Lorazepam 1 MG Orally Once a day 1 tablet at bedtime as needed 24h May, 28 days Active RESULTS No Results PROCEDURES No Known procedures IMMUNIZATIONS No Known Immunizations
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
--- OUTSIDE RECORDS SUMMARY | 2019-09-13 07:23 | XMS REPORT ---
Author Author Tiffany BALDERAS [facility] eClinicalWorks Address Unknown Phone Unavailable Care Team Providers Care [employer] Name Role Phone DESHAWN BALDERAS CP Unavailable Allergies, Adverse Reactions, Alerts Substance Reaction Event Type Cephalexin Info Not Available Drug Allergy Problems Problem Type Condition Code Onset Dates Condition Statu s Problem Sciatica 724.3 Active Problem Other and unspecified bipolar disorders 296.89 Active Problem Screening examination for venereal disease V74.5 Active Problem Screening for iron deficiency anemia V78.0 Active Problem Uterine size date discrepanc y, unspecified as to episode of care or not applicable 649.60 Active Problem examination or test, positive result V72.42 Active Problem Infections of genitourinary tract in , unspecified as to episode of care 646.60 Active Problem Encounter for long-term (current) use of other medicat ions V58.69 Active Problem DTAP TEST V06.1 Active Problem Screening for diabetes mellitus V77.1 Active Assessment Pain of left hand M79.642 Active Problem Bipolar I disorder, most recent episode (or current) mixed, moderate 296.62 Active Assessment Pain in right hand M79.641 Active Problem Supervision of other normal V22.1 Active Problem Bipolar I disorder, most rec ent episode (or current) mixed, in partial or unspecified remission 296.65 Active Problem Routine follow-up V24.2 Active Problem Bipolar I disorder, most rec ent episode (or current) mixed, severe, without mention of psychotic behavior 296.63 Ac tive Problem Migraine, unspecified withou t mention of intractable migraine without mention of status migrainosus 346.90 Active Problem Other, multiple, and unspeci fied sites, insect bite, nonvenomous, without mention of infection 919.4 Active Medications Medication Code System Code Instructions Start Date End Date Status Dosage [place] [facility] [address]-77 10-325 MG Orally every 6 hrs Jan 28, 2016 1 tablet as needed Diclofenac Sodium [facility] [address]-78 75 MG Orally Once a day December 07, 2015 1 tablet HydrOXYzine HCl [facility] [address]-14 10 MG Orally not defined BuSpar NDC 0 10 mg Orally Once a day 1/2 tablet Albuterol Sulfate [facility] [address]-91 90 mcg/actuation November 11, 2012 2 puffs by Inhalation route every 4-6 hours as needed PRN cough or wheezing Cyclobenzaprine HCl [facility] [address]-34 10 mg Orally 2 times a d ay December 07, 2015 Feb 05, 2016 1 tablet Procedures Procedure Coding System Code Date Office Visit, Est Pt., Level 3 CPT-4 18995 A 2015 Vital Signs Date/Time: Jan 28, 2016 Cardiac Monitoring Heart Rate 108 bpm Weight 200.9 lbs Height 64 in BMI 34.48 Index Blood Pressure Diastolic 90 mmHg Blood Pressure Systolic 160 mmHg Results No Known Results Summary Purpose eClinicalWorks Submission
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
--- OUTSIDE RECORDS SUMMARY | 2019-09-13 07:23 | XMS REPORT ---
Author Author Tiffany BALDERAS Organization [facility] Address [address] [place] [address] Care Team Providers Care Sock Drier Name Role Phone DESHAWN BALDERAS Unavailable PROBLEMS Type Condition ICD9-CM Code [id number] Code Onset Dates Condition S tatus SNOMED Code Problem Anxiety F41.9 Active 97430099 Problem Bipolar disorder, current episode mixed, moderate F31.62 Active 020971502 Problem Lumbago with sciatica, right side M54.41 Active 335549090 Problem Other chronic pain G89.29 Active 8 [id number] ALLERGIES Substance Reaction Event Type Date Status Ibuprofen vomiting blood Drug Allergy May, Active Cephalexin Unknown Drug Allergy May, Active SOCIAL HISTORY No smoking Hx information available PLAN OF CARE VITAL SIGNS Height 64 in 2016-06-02 Weight 205.6 lbs 2016-06-02 Temperature 98.3 degrees Fahrenheit 2016-06-02 Heart Rate 88 bpm 2016-06-02 Respiratory Rate 18 2016-06-02 BMI 35.29 kg/m2 2016-06-02 Blood pressure systolic 176 mmHg 2016-06-02 Blood pressure diastolic 110 mmHg 2016-06-02 MEDICATIONS Medication Instructions Dosage Frequency Start Date End Date Duration S tatus Albuterol Sulfate 90 mcg/actuation 2 puf fs by Inhalation route every 4-6 hours as needed PRN cough or wheezing Nov, Active Diclofenac Sodium 75 MG Orally Once a day 1 tablet 24h Dec, Active Lorazepam 1 MG Orally Once a day 1 tablet at bedtime as needed 24h May, Active Cyclobenzaprine HCl 10 mg Orally 2 times a day 1 tablet Mar, Jul, 30 day(s) Active Triamcinolone Acetonide 0.1 % Externally Twice a day 1 appli cation to affected area 12h Mar, Active HydrOXYzine HCl 10 mg Orally PRN 1 tablet Active [place] 10-325 MG Orally every 6 hrs as needed 1 tablet as needed May, Active RESULTS No Results PROCEDURES Procedure Date Ordered Related Diagnosis Body Site Office Visit, Est Pt., Level 3 Jun 02, 2016 IMMUNIZATIONS No Known Immunizations
--- OUTSIDE RECORDS SUMMARY | 2019-09-13 07:23 | XMS REPORT ---
Author Author Tiffany BALDERAS Organization [facility] Address [address] [place] [address] Care Team Providers Care Bias Binding Folder Name Role Phone DESHAWN BALDERAS Unavailable PROBLEMS Type Condition ICD9-CM Code SDC15-OI Code Onset Dates Condition S tatus SNOMED Code Problem Screening examination for venereal disease V74.5 Active 601343455 Problem Encounter for long-term (current) use of other medications V58.69 Active 276787325 Problem Other and unspecified bipolar disorders 296.89 Active 83887686 Problem examination or test, positive result V72.42 Active 017078251 Problem Screening for iron deficiency anemia V78.0 Active Problem Screening for diabetes mellitus V77.1 Active 643068725 Problem Infections of genitourinary tract in , unspecified as to episode of care 646.60 Active Problem Uterine size date discrepanc y, unspecified as to episode of care or not applicable 649.60 Active 349318878 Problem DTAP TEST V06.1 Active Problem Bipolar I disorder, most recent episode (or current) mixed, moderate 296.62 Active 379588436 Problem Routine follow-up V24.2 A ctive 003954986 Problem Bipolar I disorder, most rec ent episode (or current) mixed, in partial or unspecified remission 296.65 Active 354 91514 Problem Bipolar I disorder, most rec ent episode (or current) mixed, severe, without mention of psychotic behavior 296.63 Act farrukh 31829505 Problem Migraine, unspecified withou t mention of intractable migraine without mention of status migrainosus 346.90 Active 10752978 Problem Other, multiple, and unspeci fied sites, insect bite, nonvenomous, without mention of infection 919.4 Active 065663086 Problem Supervision of other normal V22.1 Active 432801388 Problem Sciatica 724.3 Active 05368797 ALLERGIES Unknown Allergies SOCIAL HISTORY No smoking Hx information available PLAN OF CARE VITAL SIGNS MEDICATIONS Medication Instructions Dosage Frequency Start Date End Date Duration S wilman [place] 10-325 MG Orally every 6 hrs as needed 1 tablet as needed Jan, Active RESULTS No Results PROCEDURES No Known procedures IMMUNIZATIONS No Known Immunizations
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
--- OUTSIDE RECORDS SUMMARY | 2019-09-13 07:24 | XMS REPORT ---
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 Role Phone DESHAWN BALDERAS Unavailable PROBLEMS Type Condition ICD9-CM Code [id number] Code Onset Dates Condition S tatus SNOMED Code Problem Anxiety F41.9 Active 95471195 Problem Bipolar disorder, current episode mixed, moderate F31.62 Active 757901138 Problem Other chronic pain G89.29 Active 8 [id number] Problem Lumbago with sciatica, right side M54.41 Active 285873708 ALLERGIES Unknown Allergies SOCIAL HISTORY No smoking Hx information available PLAN OF CARE VITAL SIGNS MEDICATIONS Medication Instructions Dosage Frequency Start Date End Date Duration S tatus [place] 10-325 MG Orally every 6 hrs 1 tablet as needed 6h Jul, 20 17 28 days Active RESULTS No Results PROCEDURES No Known procedures IMMUNIZATIONS No Known Immunizations
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
--- OUTSIDE RECORDS SUMMARY | 2019-09-13 07:24 | XMS REPORT ---
Author Author Tiffany BALDERAS [facility] eClinicalWorks Address Unknown Phone Unavailable Care Team Providers Care Information Broker Name Role Phone DESHAWN BALDERAS CP Unavailable Allergies No Known Allergies Problems Problem Type Condition Code Onset Dates [...] Problem Screening for diabetes mellitus V77.1 Active Problem Bipolar I disorder, most recent episode (or current) mixed, moderate 296.62 Active Problem Supervision of other normal V22.1 [...] Instructions Start Date End Date Status Dosage [place] [facility] [address]-51 10-325 MG Orally every 6 hrs as needed Jan 28, 2016 1 tablet as needed Results No Known Results Summary Purpose eClinicalWorks Submission
--- OUTSIDE RECORDS SUMMARY | 2019-09-13 07:24 | XMS REPORT ---
Author Author Tiffany BALDERAS [facility] Address [address] [place] [address] Care Team Providers Care Loaders Name Role Phone DESHAWN BALDERAS Unavailable PROBLEMS Type Condition ICD9-CM Code [id number] Code Onset Dates Condition S tatus SNOMED Code Problem Screening examination for venereal disease V74.5 Active 584151479 Problem Encounter for long-term (current) use of other medications V58.69 Active 256320127 Problem Other and unspecified bipolar disorders 296.89 Active 46500560 Problem examination or test, positive result V72.42 Active 080446508 Problem Screening for iron deficiency anemia V78.0 Active Problem Screening for diabetes mellitus V77.1 Active 329603903 Problem Infections of genitourinary tract in , unspecified as to episode of care 646.60 Active Problem Uterine size date discrepanc y, unspecified as to episode of care or not applicable 649.60 Active 728902592 Problem DTAP TEST V06.1 Active Problem Bipolar I disorder, most recent episode (or current) mixed, moderate 296.62 Active 058127450 Problem Routine follow-up V24.2 A ctive 898526690 Assessment Carpal tunnel syndrome of right wrist G56.01 1 9 Feb, 2016 Active 13714842 Problem Bipolar I disorder, most rec ent episode (or current) mixed, in partial or unspecified remission 296.65 Active 354 17617 Problem Bipolar I disorder, most rec ent episode (or current) mixed, severe, without mention of psychotic behavior 296.63 Act farrukh 54498489 Problem Migraine, unspecified withou t mention of intractable migraine without mention of status migrainosus 346.90 Active 86029762 Problem Other, multiple, and unspeci fied sites, insect bite, nonvenomous, without mention of infection 919.4 Active 094187408 Problem Supervision of other normal V22.1 Active 318623266 Problem Sciatica 724.3 Active 18713678 ALLERGIES Unknown Allergies SOCIAL HISTORY No smoking Hx information available PLAN OF CARE VITAL SIGNS Height 64 in 2016-02-25 Heart Rate 92 bpm 2016-02-25 Respiratory Rate 18 2016-02-25 Blood pressure systolic 138 mmHg 2016-02-25 Blood pressure diastolic 96 mmHg 2016-02-25 MEDICATIONS Medication Instructions Dosage Frequency Start Date End Date Duration S tatus Zanaflex 6 MG Orally every 8 hrs 1 capsule as needed 8h Feb, 6 Active Manderson 10-325 MG Orally every 6 hrs as needed 1 tablet as needed Jan, Active RESULTS No Results PROCEDURES Procedure Date Ordered Related Diagnosis Body Site Office Visit, Est Pt., Level 3 Feb 25, 2016 IMMUNIZATIONS No Known Immunizations
--- OUTSIDE RECORDS SUMMARY | 2019-09-13 07:24 | XMS REPORT ---
Author Author Tiffany BALDERAS Organization [facility] Address [address] [place] [address] Care Team Providers Care Director Of Online Merchandising Name Role Phone DESHAWN BALDERAS Unavailable PROBLEMS Type Condition ICD9-CM Code [id number] Code Onset Dates Condition S tatus SNOMED Code Problem Flexural eczema L20.82 Active 5709 2005 Problem Anxiety F41.9 Active 41385950 Problem Lumbago with sciatica, right side M54.41 Active 808628458 Problem Bipolar disorder, current episode mixed, moderate F31.62 Active 179912578 Problem Other chronic pain G89.29 Active 8 2057526 ALLERGIES No Information SOCIAL HISTORY Never Assessed PLAN OF CARE VITAL SIGNS MEDICATIONS Medication Instructions Dosage Frequency Start Date End Date Duration S tatus Albuterol Sulfate 90 mcg/actuation Inhalation every 4-6 hour s as needed 2 puffs by Inhalation route every 4-6 hours as needed PRN cough or wheezing Nov, 30 days Active RESULTS No Results PROCEDURES No Known procedures IMMUNIZATIONS No Known Immunizations MEDICAL (GENERAL) HISTORY Type Description Date Medical History anxiety Medical History depression Medical History emotional trauma effecting her memory Hospitalization History childbirth only
--- OUTSIDE RECORDS SUMMARY | 2019-09-13 07:24 | XMS REPORT ---
Author Author Tiffany BALDERAS Organization [facility] Address [address] [place] [address] Care Team Providers Care District Traffic Chief Name Role Phone DESHAWN BALDERAS Unavailable PROBLEMS Type Condition ICD9-CM Code [id number] Code Onset Dates Condition S tatus SNOMED Code Problem Anxiety F41.9 Active 40555682 Problem Bipolar disorder, current episode mixed, moderate F31.62 Active 314891428 Problem Other chronic pain G89.29 Active 8 5954652 Problem Lumbago with sciatica, right side M54.41 Active 180762232 ALLERGIES Substance Reaction Event Type Date Status Ibuprofen vomiting blood Drug Allergy Aug, Active Cephalexin Unknown Drug Allergy Aug, Active SOCIAL HISTORY Never Assessed PLAN OF CARE Activity Details Follow Up 4 Weeks Reason:anxiety VITAL SIGNS Height 64 in 2016-08-07 Weight 206 lbs 2016-08-07 Temperature 98.3 degrees Fahrenheit 2016-08-07 Heart Rate 82 bpm 2016-08-07 Respiratory Rate 16 2016-08-07 BMI 35.36 kg/m2 2016-08-07 Blood pressure systolic 126 mmHg 2016-08-07 Blood pressure diastolic 92 mmHg 2016-08-07 MEDICATIONS Medication Instructions Dosage Frequency Start Date End Date Duration S tatus HydrOXYzine HCl 10 mg Orally PRN 1 tablet Active RESULTS No Results PROCEDURES No Known procedures IMMUNIZATIONS No Known Immunizations MEDICAL (GENERAL) HISTORY Type Description Date Medical History anxiety Medical History depression Medical History emotional trauma effecting her memory Hospitalization History childbirth only
--- OUTSIDE RECORDS SUMMARY | 2019-09-13 07:24 | XMS REPORT ---
Author Author Tiffany BALDERAS Organization [facility] Address [address] [place] [address] Care Team Providers Care Hotel General Manager Name Role Phone DESHAWN BALDERAS Unavailable PROBLEMS Type Condition ICD9-CM Code [id number] Code Onset Dates Condition S tatus SNOMED Code Problem Anxiety F41.9 Active 20591124 Problem Bipolar disorder, current episode mixed, moderate F31.62 Active 129511106 Problem Other chronic pain G89.29 Active 8 1126195 Problem Lumbago with sciatica, right side M54.41 Active 743516325 ALLERGIES Unknown Allergies SOCIAL HISTORY No smoking Hx information available PLAN OF CARE VITAL SIGNS MEDICATIONS Unknown Medications RESULTS No Results PROCEDURES No Known procedures IMMUNIZATIONS No Known Immunizations
--- OUTSIDE RECORDS SUMMARY | 2019-09-13 07:24 | XMS REPORT ---
Author Author Tiffany BALDERAS [facility] e[employer] Address Unknown Phone Unavailable Care Team Providers Care Relays Draftsperson Name Role Phone DESHAWN BALDERAS CP Unavailable Allergies, Adverse Reactions, Alerts Substance Reaction Event Type Cephalexin Info Not Available Drug Allergy Problems Problem Type Condition Code Onset Dates Condition Statu s Problem Other and unspecified bipolar disorders 296.89 Active Problem Infections of genitourinary tract in , unspecified as to episode of care 646.60 Active Problem Encounter for long-term (current) use of other medicat ions V58.69 Active Problem Other chronic pain G89.29 Active Assessment Other chronic pain G89.29 Active Problem examination or test, positive result V72.42 Active Problem Lumbago with sciatica, right side M54.41 Active Problem DTAP TEST V06.1 Active Problem Screening for diabetes mellitus V77.1 Active Problem Screening for iron deficiency anemia V78.0 Active Problem Uterine size date discrepanc y, unspecified as to episode of care or not applicable 649.60 Active Problem Routine follow-up V24.2 Active Problem Migraine, unspecified withou t mention of intractable migraine without mention of status migrainosus 346.90 Active Assessment Lumbago with sciatica, right side M54.41 Active Problem Bipolar I disorder, most recent episode (or current) mixed, moderate 296.62 Active Problem Bipolar I disorder, most rec ent episode (or current) mixed, severe, without mention of psychotic behavior 296.63 Ac tive Problem Other, multiple, and unspeci fied sites, insect bite, nonvenomous, without mention of infection 919.4 Active Problem Supervision of other normal V22.1 Active Problem Sciatica 724.3 Active Problem Bipolar I disorder, most rec ent episode (or current) mixed, in partial or unspecified remission 296.65 Active Problem Screening examination for venereal disease V74.5 Active Medications Medication Code System Code Instructions Start Date End Date Status Dosage [facility] [address]-14 10-325 MG Orally every 6 hrs as needed Apr 07, 2016 1 tablet as needed Triamcinolone Acetonide [facility] [address]-79 0.1 % Externally Twice a day Apr 07, 2016 1 application to aff ected area Cyclobenzaprine HCl [facility] [address]-32 10 mg Orally 2 times a d ay Apr 07, 2016 Aug 05, 2016 1 tablet Albuterol Sulfate [facility] [address]-47 90 mcg/actuation November 11, 2012 2 puffs by Inhalation route every 4-6 hours as needed PRN cough or wheezing BuSpar NDC 0 10 mg Orally Once a day 1/2 tablet Diclofenac Sodium [facility] [address]-48 75 MG Orally Once a day December 07, 2015 1 tablet Procedures Procedure Coding System Code Date Office Visit, Est Pt., Level 3 CPT-[address] 2015 Vital Signs Date/Time: Apr 07, 2016 Cardiac Monitoring Heart Rate 76 bpm Weight 202 lbs Height 64 in BMI 34.67 Index Blood Pressure Diastolic 94 mmHg Blood Pressure Systolic 134 mmHg Results No Known Results Summary Purpose eClinicalWorks Submission
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
--- OUTSIDE RECORDS SUMMARY | 2019-09-13 07:25 | XMS REPORT ---
Author Author Tiffany BALDERAS Organization 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 Active 257683532 Problem Flexural eczema L20.82 Active 5709 2005 Problem Other chronic pain G89.29 Active 8 9639795 Problem Lumbago with sciatica, right side M54.41 Active 369821604 Problem Anxiety F41.9 Active 56828982 Problem Bipolar disorder, current episode mixed, moderate F31.62 Active 320593221 ALLERGIES No Information ENCOUNTERS Encounter Location Date Diagnosis [place] [address] [address] [facility] [id number] [address] [place] [id number] Aug, Lumbago with sciatica, right side M54.41 and BMI 40.0-44.9, adult Z68.41 [place] [address] [id number] [place] [id number] Jul, BMI 40.0-44.9, adult Z68.41 [place] [address] [address] [place] [id number] [address] [place] [address] Jul, Lumbago with sciatica, right side M54.41 and Other chronic pain G89.29 [place] [address] [address] [place] [id number] [address] [place] [phone] Jul, [place] [address] [address] [facility] [id number] [address] [place] [phone] Jun, Other chronic pain G89.29 an d BMI 40.0-44.9, adult Z68.41 [place] [address] [address] [facility] [id number] [address] [place] [phone] Jun, [facility] [address] [facility] [id number] [address] [place] [phone] Jun, [facility] [address] [facility] [id number] [address] [place] [address] Jun, [facility] [address] [place] [id number] [address] [place] [id number] Jun, BMI 40.0-44.9, adult Z68.41 ; Lumbago with sciatica, right side M54.41 and Intractable migraine without aura and with status migrainosus G43.011 [facility] [address] [place] [id number] [address] [place] [phone] May, BMI 40.0-44.9, adult Z68.41 [facility] [address] [place] [id number] [address] [place] [phone] May, BMI 40.0-44.9, adult Z68.41 [facility] [address] [place] [id number] [address] [place] [address] May, BMI 40.0-44.9, adult Z68.41 [facility] [address] [place] [id number] [address] [place] [address] Apr, [facility] [address] [place] [id number] [address] [place] [address] Apr, BMI 40.0-44.9, adult Z68.41 ; Lumbago with sciatica, right side M54.41 and Intractable migraine without aura and with status migrainosus G43.011 [facility] [address] [place] [id number] [address] [place] [phone] Apr, [facility] [address] [place] [id number] [address] [place] [phone] Apr, [facility] [address] [place] [id number] [address] [place] [id number] Apr, [facility] [address] [id number] [address] [place] [phone] Mar, Anxiety F41.9 [facility] [address] [id number] [address] [place] [phone] Mar, [facility] [address] [id number] [address] [place] [phone] Mar, [facility] [address] [id number] [address] [place] [phone] Mar, [facility] [address] [id number] [address] [place] [phone] Mar, [facility] [address] [id number] [address] [place] [phone] Mar, [facility] [address] [id number] [address] [place] [address] Mar, Flexural eczema L20.82 [facility] [address] [id number] [address] [place] [address] Mar, Anxiety F41.9 [facility] [address] [id number] [address] [place] [id number] Feb, Anxiety F41.9 and Lumbago wi th sciatica, right side M54.41 [facility] [address] [id number] [address] [place] [phone] Feb, [facility] [address] [id number] [address] [place] [phone] Feb, Anxiety F41.9 [facility] [address] [id number] [address] [place] [phone] Jan, Anxiety F41.9 and Lumbago wi th sciatica, right side M54.41 [facility] [address] [id number] [address] [place] [id number] Jan, Lumbago with sciatica, right side M54.41 [facility] [address] [id number] [address] [place] [phone] Jan, Anxiety F41.9 [facility] [address] [id number] [address] [place] [id number] Dec, Lumbago with sciatica, right side M54.[address] [facility] [address] [id number] [address] [place] [phone] Dec, Anxiety F41.9 and Lumbago wi th sciatica, right side M54.41 [facility] [address] [id number] [address] [place] [phone] Nov, [facility] [address] [id number] [address] [place] [phone] Nov, 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 [address] [id number] [address] [place] [phone] Nov, Anxiety F41.9 [facility] [address] [id number] [address] [place] [phone] October, Anxiety F41.9 ; Low back [place] n M54.5 and Pain in right knee M25.561 [facility] [address] [id number] [address] [place] [id number] Sep, Lumbago with sciatica, right side M54.41 [facility] [address] [id number] [address] [place] [phone] Sep, [facility] [address] [id number] [address] [place] [phone] Aug, Lumbago with sciatica, right side M54.41 [facility] [address] [id number] [address] [place] [phone] Aug, [facility] [address] [facility] [id number] [address] [place] [phone] Aug, [facility] [address] [facility] [id number] [address] [place] [phone] Aug, [facility] [address] [facility] [id number] [address] [place] [phone] Aug, Fever and chills R50.9 [facility] [address] [place] [id number] [address] [place] [id number] Aug, Bipolar disorder, current ep isode mixed, moderate F31.62 and Other chronic pain G89.29 [facility] [address] [place] [id number] [address] [place] [id number] Aug, Lumbago with sciatica, right side M54.41 [facility] [address] [place] [id number] [address] [place] [phone] Aug, [facility] [address] [place] [id number] [address] [place] [id number] Jul, Cellulitis of back except bu ttock L03.312 [facility] [address] [place] [id number] [address] [place] [phone] Jul, [facility] [address] [place] [id number] [address] [place] [id number] Jul, [facility] [address] [facility] [id number] [address] [place] [id number] Jul, Lumbago with sciatica, right side M54.41 [facility] [address] [facility] [id number] [address] [place] [id number] Jul, Lumbago with sciatica, right side M54.41 [facility] [address] [facility] [id number] [address] [place] [phone] Jun, [facility] [address] [place] [id number] [address] [place] [id number] May, Lumbago with sciatica, right side M54.41 and Bipolar disorder, current episode mixed, moderate F31.62 [facility] [address] [id number] [address] [place] [phone] May, [facility] [address] [id number] [address] [place] [id number] May, Periodontal abscess K05.219 [facility] [address] [id number] [address] [place] [id number] Apr, Lumbago with sciatica, right side M54.41 [facility] [address] [id number] [address] [place] [phone] Apr, [facility] [address] [id number] [address] [place] [id number] Mar, Lumbago with sciatica, right side M54.41 and Other chronic pain G89.29 [facility] [address] [id number] [address] [place] [phone] 17 Mar, 2016 [facility] [address] [id number] [address] [place] [id number] 14 Mar, 2016 [facility] [address] [id number] [address] [place] [id number] 13 Mar, 2016 [facility] [address] [id number] [address] [place] [phone] 19 Feb, 2016 Carpal tunnel syndrome of ri ght wrist G56.01 [facility] [address] [id number] [address] [place] [phone] 12 Feb, 2016 [facility] [address] [id number] [address] [place] [phone] 12 Feb, 2016 [facility] [address] [id number] [address] [place] [id number] Jan, Pain of left hand M79.642 an d Pain in right hand M79.641 [facility] [address] [id number] [address] [place] [id number] Dec, Thoracic neuritis M54.14 and Lumbar neuritis M54.16 [facility] [address] [id number] [address] [place] [phone] Nov, [facility] [address] [id number] [address] [place] [phone] Sep, [facility] [address] [id number] [address] [place] [address], [place] [address] Sep, [facility] [address] [id number] [address] [place] [address], [place] [address] Jul, [facility] [address] [id number] [address] [place] [phone] Jul, [facility] [address] [id number] [address] [place] [phone] Jan, [facility] [address] [id number] [address] [place] [phone] Jan, [facility] [address] [id number] [address] [place] [id number] Jan, [facility] [address] [id number] [address] [place] [phone] Jan, [facility] [address] [id number] [address] [place] [phone] Jan, [facility] [address] [id number] [address] [place] [phone] Jan, [facility] [address] [id number] [address] [place] [phone] Dec, [facility] [address] [id number] [address] [place] [id number] Dec, [facility] [address] [id number] [address] [place] [phone] Dec, [facility] [address] [id number] [address] [place] [phone] Dec, [facility] [address] [id number] [address] [place] [address], [place] [address] Nov, [facility] [address] [id number] [address] [place] [address], [place] [address] Nov, [facility] [address] [id number] [address] [place] [address], [place] [address] Nov, [facility] [address] [id number] [address] [place] [address], [place] [address] Nov, [facility] [address] [id number] [address] [place] [address], [place] [address] October, [facility] [address] [id number] [address] [place] [address], [place] [address] October, [facility] [address] [id number] [address] [place] [address], [place] [address] October, [facility] [address] [id number] [address] [place] [address], [place] [address] October, [facility] [address] [id number] [address] [place] [address], [place] [address] October, [facility] [address] [id number] [address] [place] [address], [place] [address] October, [facility] [address] [id number] [address] [place] [address], [place] [address] October, [facility] [address] [id number] [address] [place] [address], [place] [address] October, [facility] [address] [id number] [address] [place] [address], [place] [address] October, [facility] [address] [id number] [address] [place] [address], [place] [address] October, [facility] [address] [id number] [address] [place] [address], [place] [address] Sep, [facility] [address] [id number] [address] [place] [address], [place] [address] 12 Sep, 2012 [facility] [address] [id number] [address] [place] [address], [place] [address] 06 Sep, 2012 [facility] [address] [id number] [address] [place] [address], [place] [address] 04 Sep, 2012 [facility] [address] [id number] [address] [place] [address], [place] [address] 04 Sep, 2012 [facility] [address] [id number] [address] [place] [address], [place] [address] 12 Aug, 2012 [facility] [address] [id number] [address] [place] [address], [place] [address] 08 Aug, 2012 [facility] [address] [id number] [address] [place] [address], [place] [address] 07 Aug, 2012 [facility] [address] [id number] [address] [place] [address], [place] [address] 06 Aug, 2012 [facility] [address] [id number] [address] [place] [address], [place] [address] 04 Aug, 2012 [facility] [address] [id number] [address] [place] [address], [place] [address] 06 Jul, 2012 [facility] [address] [id number] [address] [place] [id number] 15 Jun, 2012 [facility] [address] [id number] [address] [place] [address], [place] [address] 14 Jun, 2012 [facility] [address] [id number] [address] [place] [address], [place] [address] Jun, [facility] [address] [id number] [address] [place] [address], [place] [address] Jun, [facility] [address] [id number] [address] [place] [address], [place] [address] May, [facility] [address] [id number] [address] [place] [address], [place] [address] May, [facility] [address] [id number] [address] [place] [address], [place] [address] 14 May, 2012 [facility] [address] [id number] [address] [place] [address], [place] [address] 13 May, 2012 [facility] [address] [id number] [address] [place] [address], [place] [address] 13 May, 2012 [facility] [address] [id number] [address] [place] [address], [place] [address] 15 Apr, 2012 [facility] [address] [id number] [address] [place] [address], [place] [address] 15 Apr, 2012 [facility] [address] [id number] [address] [place] [address], [place] [address] 12 Apr, 2012 [facility] [address] [id number] [address] [place] [address], [place] [address] Apr, [facility] [address] [id number] [address] [place] [address], [place] [address] Apr, [facility] [address] [id number] [address] [place] [address], [place] [address] Apr, [facility] [address] [id number] [address] [place] [address], [place] [address] Apr, [facility] [address] [id number] [address] [place] [address], [place] [address] Apr, [facility] [address] [id number] [address] [place] [id number] 15 Mar, 2012 [facility] [address] [id number] [address] [place] [address], [place] [address] Mar, [facility] [address] [id number] [address] [place] [address], [place] [address] Feb, [facility] [address] [id number] [address] [place] [address], [place] [address] Jan, [facility] [address] [id number] [address] [place] [address], [place] [address] Jan, [facility] [address] [id number] [address] [place] [address], [place] [address] Dec, [facility] [address] [id number] [address] [place] [address], [place] [address] Dec, [facility] [address] [id number] [address] [place] [address], [place] [address] October, [facility] [address] [id number] [address] [place] [address], [place] [address] October, [facility] [address] [id number] [address] [place] [address], [place] [id number] October, [facility] [address] [id number] [address] [place] [address], [place] [address] October, [facility] [address] [id number] [address] [place] [address], [place] [address] October, [facility] [address] [id number] [address] [place] [address], [place] [address] Sep, [facility] [address] [id number] [address] [place] [address], [place] [address] Sep, [facility] [address] [id number] [address] [place] [address], [place] [address] Sep, [facility] [address] [id number] [address] [place] [address], [place] [address] Sep, [facility] [address] [id number] [address] [place] [address], [place] [address] Aug, [facility] [address] [id number] [address] [place] [address], [place] [address] Jul, [facility] [address] [id number] [address] [place] [address], [place] [address] Jul, [facility] [address] [id number] [address] [place] [address], [place] [address] Jul, [facility] [address] [id number] [address] [place] [id number] Jun, [facility] [address] [id number] [address] [place] [id number] Jun, [facility] [address] [id number] [address] [place] [id number] May, [facility] [address] [id number] [address] [place] [phone] May, [facility] [address] [id number] [address] [place] [id number] May, [facility] [address] [id number] [address] [place] [id number] Apr, [facility] [address] [id number] [address] [place] [id number] Apr, [facility] [address] [id number] [address] [place] [id number] Apr, [facility] [address] [id number] [address] [place] [id number] Apr, [facility] [address] [id number] [address] [place] [id number] Apr, [facility] [address] [id number] [address] [place] [phone] Mar, [facility] [address] [id number] [address] [place] [phone] Mar, [facility] [address] [id number] [address] [place] [id number] Mar, IMMUNIZATIONS No Known Immunizations SOCIAL HISTORY Never Assessed REASON FOR VISIT triage - CBowmanRN PLAN OF CARE VITAL SIGNS MEDICATIONS Unknown Medications RESULTS No Results PROCEDURES No Known procedures INSTRUCTIONS MEDICATIONS ADMINISTERED No Known Medications MEDICAL (GENERAL) HISTORY Type Description Date Medical History anxiety Medical History depression Medical History emotional trauma effecting her memory Medical History migraines Hospitalization History childbirth only Hospitalization History hit by [employer]
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
--- OUTSIDE RECORDS SUMMARY | 2019-09-13 07:25 | XMS REPORT ---
Author Author Tiffany BALDERAS Organization [facility] Address [address] [place] [address] Care Team Providers Care Production Supervisor Off Shift Name Role Phone DESHAWN BALDERAS Unavailable PROBLEMS Type Condition ICD9-CM Code [id number] Code Onset Dates Condition S tatus SNOMED Code Problem Anxiety F41.9 Active 67740151 Problem Bipolar disorder, current episode mixed, moderate F31.62 Active 620021302 Problem Lumbago with sciatica, right side M54.41 Active 290902177 Problem Other chronic pain G89.29 Active 8 [id number] ALLERGIES Unknown Allergies SOCIAL HISTORY No smoking Hx information available PLAN OF CARE VITAL SIGNS MEDICATIONS Unknown Medications RESULTS No Results PROCEDURES No Known procedures IMMUNIZATIONS No Known Immunizations
--- OUTSIDE RECORDS SUMMARY | 2019-09-13 07:25 | XMS REPORT ---
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 [id number] [address] [place] [address] Aug, Lumbago with sciatica, right side M54.41 and BMI 40.0-44.9, adult Z68.41 [place] [id number] [place] [address] Jul, BMI 40.0-44.9, adult Z68.41 [place] [address] [place] [id number] [address] [place] [address] Jul, Lumbago with sciatica, right side M54.41 and Other chronic pain G89.29 [place] [address] [place] [id number] [address] [place] [address] Jul, [place] [address] [facility] [id number] [address] [place] [address] Jun, Other chronic pain G89.29 an d BMI 40.0-44.9, adult Z68.41 [place] [address] [id number] [address] [place] [address] Jun, [facility] [address] [facility] [id number] [address] [place] [address] Jun, [facility] [address] [facility] [id number] [address] [place] [address] Jun, [facility] [address] [place] [id number] [address] [place] [address] Jun, BMI 40.0-44.9, adult Z68.41 ; Lumbago with sciatica, right side M54.41 and Intractable migraine without aura and with status migrainosus G43.011 [facility] [address] [place] [id number] [address] [place] [address] May, BMI 40.0-44.9, adult Z68.41 [facility] [address] [place] [id number] [address] [place] [address] May, BMI 40.0-44.9, adult Z68.41 [facility] [address] [place] [id number] [address] [place] [address] May, BMI 40.0-44.9, adult Z68.41 [facility] [address] [place] [id number] [address] [place] [address] Apr, [facility] [address] [place] [id number] [address] [place] [address] Apr, BMI 40.0-44.9, adult Z68.41 ; Lumbago with sciatica, right side M54.41 and Intractable migraine without aura and with status migrainosus G43.011 [facility] [address] [place] [id number] [address] [place] [address] Apr, [facility] [address] [place] [id number] [address] [place] [address] Apr, [facility] [address] [place] [id number] [address] [place] [address] Apr, [facility] [address] [id number] [address] [place] [address] Mar, Anxiety F41.9 [facility] [address] [id number] [address] [place] [address] Mar, [facility] [address] [id number] [address] [place] [address] Mar, [facility] [address] [id number] [address] [place] [address] Mar, [facility] [address] [id number] [address] [place] [address] Mar, [facility] [address] [id number] [address] [place] [address] Mar, [facility] [address] [id number] [address] [place] [address] Mar, Flexural eczema L20.82 [facility] [address] [id number] [address] [place] [address] Mar, Anxiety F41.9 [facility] [address] [id number] [address] [place] [address] Feb, Anxiety F41.9 and Lumbago wi th sciatica, right side M54.41 [facility] [address] [id number] [address] [place] [address] Feb, [facility] [address] [id number] [address] [place] [address] Feb, Anxiety F41.9 [facility] [address] [id number] [address] [place] [address] Jan, Anxiety F41.9 and Lumbago wi th sciatica, right side M54.41 [facility] [address] [id number] [address] [place] [address] Jan, Lumbago with sciatica, right side M54.41 [facility] [address] [id number] [address] [place] [address] Jan, Anxiety F41.9 [facility] [address] [id number] [address] [place] [address] Dec, Lumbago with sciatica, right side M54.41 and Anxiety F41.9 [facility] [address] [id number] [address] [place] [address] Dec, Anxiety F41.9 and Lumbago wi th sciatica, right side M54.41 [facility] [address] [id number] [address] [place] [address] Nov, [facility] [address] [id number] [address] [place] [address] Nov, [facility] [address] [id number] [address] [place] [address] Nov, Anxiety F41.9 and 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 [facility] [address] [id number] [address] [place] [address] Nov, Anxiety F41.9 [facility] [address] [id number] [address] [place] [address] October, Anxiety F41.9 ; Low back [place] n M54.5 and Pain in right knee M25.561 [facility] [address] [id number] [address] [place] [address] Sep, Lumbago with sciatica, right side M54.41 [facility] [address] [id number] [address] [place] [address] Sep, [facility] [address] [id number] [address] [place] [address] Aug, Lumbago with sciatica, right side M54.41 [facility] [address] [id number] [address] [place] [address] Aug, [facility] [address] [facility] [id number] [address] [place] [address] Aug, [facility] [address] [facility] [id number] [address] [place] [address] Aug, [facility] [address] [id number] [address] [place] [address] Aug, Fever and chills R50.9 [facility] [address] [place] [id number] [address] [place] [address] Aug, Bipolar disorder, current ep isode mixed, moderate F31.62 and Other chronic pain G89.29 [facility] [address] [place] [id number] [address] [place] [address] Aug, Lumbago with sciatica, right side M54.41 [facility] [address] [place] [id number] [address] [place] [address] Aug, [facility] [address] [place] [id number] [address] [place] [address] Jul, Cellulitis of back except bu ttock L03.312 [facility] [address] [place] [id number] [address] [place] [address] Jul, [facility] [address] [place] [id number] [address] [place] [address] Jul, [facility] [address] [facility] [id number] [address] [place] [address] Jul, Lumbago with sciatica, right side M54.41 [facility] [address] [facility] [id number] [address] [place] [address] Jul, Lumbago with sciatica, right side M54.41 [facility] [address] [facility] [id number] [address] [place] [address] Jun, [facility] [address] [place] [id number] [address] [place] [address] May, Lumbago with sciatica, right side M54.41 and Bipolar disorder, current episode mixed, moderate F31.62 [facility] [address] [id number] [address] [place] [address] May, [facility] [address] [id number] [address] [place] [address] May, Periodontal abscess K05.219 [facility] [address] [id number] [address] [place] [address] Apr, Lumbago with sciatica, right side M54.41 [facility] [address] [id number] [address] [place] [address] Apr, [facility] [address] [id number] [address] [place] [address] Mar, Lumbago with sciatica, right side M54.41 and Other chronic pain G89.29 [facility] [address] [id number] [address] [place] [address] 17 Mar, 2016 [facility] [address] [id number] [address] [place] [address] 14 Mar, 2016 [facility] [address] [id number] [address] [place] [address] 13 Mar, 2016 [facility] [address] [id number] [address] [place] [address] 19 Feb, 2016 Carpal tunnel syndrome of ri ght wrist G56.01 [facility] [address] [id number] [address] [place] [address] 12 Feb, 2016 [facility] [address] [id number] [address] [place] [address] 12 Feb, 2016 [facility] [address] [id number] [address] [place] [address] Jan, Pain of left hand M79.642 an d Pain in right hand M79.641 [facility] [address] [id number] [address] [place] [address] Dec, Thoracic neuritis M54.14 and Lumbar neuritis M54.16 [facility] [address] [id number] [address] [place] [address] Nov, [facility] [address] [id number] [address] [place] [address] Sep, [facility] [address] [id number] [address] [place] [address], [place] [address] Sep, [facility] [address] [id number] [address] [place] [address], [place] [address] Jul, [facility] [address] [id number] [address] [place] [address] Jul, [facility] [address] [id number] [address] [place] [address] Jan, [facility] [address] [id number] [address] [place] [address] Jan, [facility] [address] [id number] [address] [place] [address] Jan, [facility] [address] [id number] [address] [place] [address] Jan, [facility] [address] [id number] [address] [place] [address] Jan, [facility] [address] [id number] [address] [place] [address] Jan, [facility] [address] [id number] [address] [place] [address] Dec, [facility] [address] [id number] [address] [place] [address] Dec, [facility] [address] [id number] [address] [place] [address] Dec, [facility] [address] [id number] [address] [place] [address] Dec, [facility] [address] [id number] [address] [place] [address], [place] [address] Nov, [facility] [address] [id number] [address] [place] [address], [place] [address] Nov, [facility] [address] [id number] [address] [place] [address], [place] [address] Nov, [facility] [address] [id number] [address] [place] [address], [place] [address] Nov, [facility] [address] [id number] [address] [place] [address], [place] [address] October, [facility] [address] [id number] [address] [place] [address], [place] [address] October, [facility] [address] [id number] [address] [place] [address], [place] [address] October, [facility] [address] [id number] [address] [place] [address], [place] [address] October, [facility] [address] [id number] [address] [place] [address], [place] [address] October, [facility] [address] [id number] [address] [place] [address], [place] [address] October, [facility] [address] [id number] [address] [place] [address], [place] [address] October, [facility] [address] [id number] [address] [place] [address], [place] [address] October, [facility] [address] [id number] [address] [place] [address], [place] [address] October, [facility] [address] [id number] [address] [place] [address], [place] [address] October, [facility] [address] [id number] [address] [place] [address], [place] [address] Sep, [facility] [address] [id number] [address] [place] [address], [place] [address] 12 Sep, 2012 [facility] [address] [id number] [address] [place] [address], [place] [address] 06 Sep, 2012 [facility] [address] [id number] [address] [place] [address], [place] [address] 04 Sep, 2012 [facility] [address] [id number] [address] [place] [address], [place] [address] 04 Sep, 2012 [facility] [address] [id number] [address] [place] [address], [place] [address] 12 Aug, 2012 [facility] [address] [id number] [address] [place] [address], [place] [address] 08 Aug, 2012 [facility] [address] [id number] [address] [place] [address], [place] [address] 07 Aug, 2012 [facility] [address] [id number] [address] [place] [address], [place] [address] 06 Aug, 2012 [facility] [address] [id number] [address] [place] [address], [place] [address] 04 Aug, 2012 [facility] [address] [id number] [address] [place] [address], [place] [address] 06 Jul, 2012 [facility] [address] [id number] [address] [place] [id number] 15 Jun, 2012 [facility] [address] [id number] [address] [place] [address], [place] [address] 14 Jun, 2012 [facility] [address] [id number] [address] [place] [address], [place] [address] Jun, [facility] [address] [id number] [address] [place] [address], [place] [address] Jun, [facility] [address] [id number] [address] [place] [address], [place] [address] May, [facility] [address] [id number] [address] [place] [address], [place] [address] May, [facility] [address] [id number] [address] [place] [address], [place] [address] 14 May, 2012 [facility] [address] [id number] [address] [place] [address], [place] [address] 13 May, 2012 [facility] [address] [id number] [address] [place] [address], [place] [address] 13 May, 2012 [facility] [address] [id number] [address] [place] [address], [place] [address] 15 Apr, 2012 [facility] [address] [id number] [address] [place] [address], [place] [address] 15 Apr, 2012 [facility] [address] [id number] [address] [place] [address], [place] [address] 12 Apr, 2012 [facility] [address] [id number] [address] [place] [address], [place] [address] Apr, [facility] [address] [id number] [address] [place] [address], [place] [address] Apr, [facility] [address] [id number] [address] [place] [address], [place] [address] Apr, [facility] [address] [id number] [address] [place] [address], [place] [address] Apr, [facility] [address] [id number] [address] [place] [address], [place] [address] Apr, [facility] [address] [id number] [address] [place] [address] 15 Mar, 2012 [facility] [address] [id number] [address] [place] [address], [place] [address] Mar, [facility] [address] [id number] [address] [place] [address], [place] [address] Feb, [facility] [address] [id number] [address] [place] [address], [place] [address] Jan, [facility] [address] [id number] [address] [place] [address], [place] [address] Jan, [facility] [address] [id number] [address] [place] [address], [place] [address] Dec, [facility] [address] [id number] [address] [place] [address], [place] [address] Dec, [facility] [address] [id number] [address] [place] [address], [place] [address] October, [facility] [address] [id number] [address] [place] [address], [place] [address] October, [facility] [address] [id number] [address] [place] [address], [place] [address] October, [facility] [address] [id number] [address] [place] [address], [place] [address] October, [facility] [address] [id number] [address] [place] [address], [place] [address] October, [facility] [address] [id number] [address] [place] [address], [place] [address] Sep, [facility] [address] [id number] [address] [place] [address], [place] [address] Sep, [facility] [address] [id number] [address] [place] [address], [place] [address] Sep, [facility] [address] [id number] [address] [place] [address], [place] [address] Sep, [facility] [address] [id number] [address] [place] [address], [place] [address] Aug, [facility] [address] [id number] [address] [place] [address], [place] [address] Jul, [facility] [address] [id number] [address] [place] [address], [place] [address] Jul, [facility] [address] [id number] [address] [place] [address], [place] [address] Jul, [facility] [address] [id number] [address] [place] [phone] Jun, [facility] [address] [id number] [address] [place] [phone] Jun, [facility] [address] [id number] [address] [place] [address] May, [facility] [address] [id number] [address] [place] [phone] May, [facility] [address] [id number] [address] [place] [phone] May, [facility] [address] [id number] [address] [place] [phone] Apr, [facility] [address] [id number] [address] [place] [address] Apr, [facility] [address] [id number] [address] [place] [address] Apr, [facility] [address] [id number] [address] [place] [address] Apr, [facility] [address] [id number] [address] [place] [address] Apr, [facility] [address] [id number] [address] [place] [phone] Mar, [facility] [address] [id number] [address] [place] [id number] Mar, [facility] [address] [id number] [address] [place] [phone] Mar, IMMUNIZATIONS No Known Immunizations SOCIAL HISTORY Never Assessed REASON FOR VISIT Controlled Med Refill 04/10/17 PLAN OF CARE VITAL SIGNS MEDICATIONS Medication Instructions Dosage Frequency Start Date End Date Duration S tatus [place] 10-325 MG Orally 4 times a day 1 tablet as needed 6h 03 2016 28 days Active Alprazolam 1 MG Orally [...]
--- OUTSIDE RECORDS SUMMARY | 2019-09-13 07:25 | XMS REPORT ---
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
--- OUTSIDE RECORDS SUMMARY | 2019-09-13 07:25 | XMS REPORT ---
Author Author Tiffany DENG [facility] Address [address] [place] [address] Care Team Providers Care Soaker Hides Name Role Phone BENITO DENG Unavailable PROBLEMS Type Condition ICD9-CM Code [id number] Code Onset Dates Condition S tatus SNOMED Code Problem Anxiety F41.9 Active 27137872 Problem Bipolar disorder, current episode mixed, moderate F31.62 Active 317350371 Problem Other chronic pain G89.29 Active 8 7518251 Problem Lumbago with sciatica, right side M54.41 Active 748802585 ALLERGIES Substance Reaction Event Type Date Status Ibuprofen vomiting blood Drug Allergy Jul, Active Cephalexin Unknown Drug Allergy Jul, Active SOCIAL HISTORY Never Assessed PLAN OF CARE Activity Details Follow Up 3 Months Reason: VITAL SIGNS Height 64 in 2016-07-31 Weight 206 lbs 2016-07-31 Temperature 98.4 degrees Fahrenheit 2016-07-31 Heart Rate 84 bpm 2016-07-31 Respiratory Rate 18 2016-07-31 BMI 35.36 kg/m2 2016-07-31 Blood pressure systolic 156 mmHg 2016-07-31 Blood pressure diastolic 90 mmHg 2016-07-31 MEDICATIONS Medication Instructions Dosage Frequency Start Date End Date Duration S tatus Hamilton 10-325 MG Orally every 6 hrs 1 tablet as needed 6h Jul, 17 28 days Active HydrOXYzine HCl 10 mg Orally PRN 1 tablet Active Lorazepam 1 MG Orally Once a day 1 tablet at bedtime as needed 24h May, 28 days Active Albuterol Sulfate 90 mcg/actuation 2 puf fs by Inhalation route every 4-6 hours as needed PRN cough or wheezing Nov, Active Diclofenac Sodium 75 MG Orally Once a day 1 tablet 24h Dec, Active Triamcinolone Acetonide 0.1 % Externally Twice a day 1 appli cation to affected area Mar, Active Cyclobenzaprine HCl 10 mg Orally 2 times a day 1 tablet 12h Mar, Jul, 30 day(s) Active RESULTS No Results PROCEDURES No Known procedures IMMUNIZATIONS No Known Immunizations MEDICAL (GENERAL) HISTORY Type Description Date Medical History anxiety Medical History depression Medical History emotional trauma effecting her memory Hospitalization History childbirth only
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
--- OUTSIDE RECORDS SUMMARY | 2019-09-13 07:25 | XMS REPORT ---
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 [id number] [address] [place] [phone] Aug, Lumbago with sciatica, right side M54.41 and BMI 40.0-44.9, adult Z68.41 [place] [id number] [place] [address] Jul, BMI 40.0-44.9, adult Z68.41 [place] [address] [place] [id number] [address] [place] [address] Jul, Lumbago with sciatica, right side M54.41 and Other chronic pain G89.29 [place] [address] [place] [id number] [place] [address] Jul, [place] [address] [facility] [id number] [address] [place] [address] Jun, Other chronic pain G89.29 an d BMI 40.0-44.9, adult Z68.41 [place] [address] [facility] [id number] [address] [place] [address] Jun, [facility] [address] [facility] [id number] [address] [place] [address] Jun, [facility] [address] [facility] [id number] [address] [place] [address] Jun, [facility] [address] [place] [id number] [address] [place] [address] Jun, BMI 40.0-44.9, adult Z68.41 ; Lumbago with sciatica, right side M54.41 and Intractable migraine without aura and with status migrainosus G43.011 [facility] [address] [place] [id number] [address] [place] [address] May, BMI 40.0-44.9, adult Z68.41 [facility] [address] [place] [id number] [address] [place] [address] May, BMI 40.0-44.9, adult Z68.41 [facility] [address] [place] [id number] [address] [place] [address] May, BMI 40.0-44.9, adult Z68.41 [facility] [address] [place] [id number] [address] [place] [address] Apr, [facility] [address] [place] [id number] [address] [place] [address] Apr, BMI 40.0-44.9, adult Z68.41 ; Lumbago with sciatica, right side M54.41 and Intractable migraine without aura and with status migrainosus G43.011 [facility] [address] [place] [id number] [address] [place] [address] Apr, [facility] [address] [place] [id number] [address] [place] [address] Apr, [facility] [address] [place] [id number] [address] [place] [address] Apr, [facility] [address] [id number] [address] [place] [address] Mar, Anxiety F41.9 [facility] [address] [id number] [address] [place] [address] Mar, [facility] [address] [id number] [address] [place] [address] Mar, [facility] [address] [id number] [address] [place] [phone] Mar, [facility] [address] [id number] [address] [place] [phone] Mar, [facility] [address] [id number] [address] [place] [address] Mar, [facility] [address] [id number] [address] [place] [address] Mar, Flexural eczema L20.82 [facility] [address] [id number] [address] [place] [address] Mar, Anxiety F41.9 [facility] [address] [id number] [address] [place] [address] Feb, Anxiety F41.9 and Lumbago wi th sciatica, right side M54.41 [facility] [address] [id number] [address] [place] [address] Feb, [facility] [address] [id number] [address] [place] [address] Feb, Anxiety F41.9 [facility] [address] [id number] [address] [place] [address] Jan, Anxiety F41.9 and Lumbago wi th sciatica, right side M54.41 [facility] [address] [id number] [address] [place] [address] Jan, Lumbago with sciatica, right side M54.41 [facility] [address] [id number] [address] [place] [address] Jan, Anxiety F41.9 [facility] [address] [id number] [address] [place] [address] Dec, Lumbago with sciatica, right side M54.41 and Anxiety F41.9 [facility] [address] [id number] [address] [place] [address] Dec, Anxiety F41.9 and Lumbago wi th sciatica, right side M54.41 [facility] [address] [id number] [address] [place] [address] Nov, [facility] [address] [id number] [address] [place] [address] Nov, [facility] [address] [id number] [address] [place] [address] Nov, Anxiety F41.9 and 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 [facility] [address] [id number] [address] [place] [address] Nov, Anxiety F41.9 [facility] [address] [id number] [address] [place] [address] October, Anxiety F41.9 ; Low back [place] n M54.5 and Pain in right knee M25.561 [facility] [address] [id number] [address] [place] [address] Sep, Lumbago with sciatica, right side M54.41 [facility] [address] [id number] [address] [place] [address] Sep, [facility] [address] [id number] [address] [place] [address] Aug, Lumbago with sciatica, right side M54.41 [facility] [address] [id number] [address] [place] [address] Aug, [facility] [address] [facility] [id number] [address] [place] [address] Aug, [facility] [address] [facility] [id number] [address] [place] [phone] Aug, [facility] [address] [facility] [id number] [address] [place] [address] Aug, Fever and chills R50.9 [facility] [address] [place] [id number] [address] [place] [address] Aug, Bipolar disorder, current ep isode mixed, moderate F31.62 and Other chronic pain G89.29 [facility] [address] [place] [id number] [address] [place] [address] Aug, Lumbago with sciatica, right side M54.41 [facility] [address] [place] [id number] [address] [place] [address] Aug, [facility] [address] [place] [id number] [address] [place] [address] Jul, Cellulitis of back except bu ttock L03.312 [facility] [address] [place] [id number] [address] [place] [address] Jul, [facility] [address] [place] [id number] [address] [place] [address] Jul, [facility] [address] [facility] [id number] [address] [place] [address] Jul, Lumbago with sciatica, right side M54.41 [facility] [address] [facility] [id number] [address] [place] [address] Jul, Lumbago with sciatica, right side M54.41 [facility] [address] [facility] [id number] [address] [place] [address] Jun, [facility] [address] [place] [id number] [address] [place] [address] May, Lumbago with sciatica, right side M54.41 and Bipolar disorder, current episode mixed, moderate F31.62 [facility] [address] [id number] [address] [place] [address] May, [facility] [address] [id number] [address] [place] [address] May, Periodontal abscess K05.219 [facility] [address] [id number] [address] [place] [address] Apr, Lumbago with sciatica, right side M54.41 [facility] [address] [id number] [address] [place] [address] Apr, [facility] [address] [id number] [address] [place] [address] Mar, Lumbago with sciatica, right side M54.41 and Other chronic pain G89.29 [facility] [address] [id number] [address] [place] [phone] 17 Mar, 2016 [facility] [address] [id number] [address] [place] [phone] 14 Mar, 2016 [facility] [address] [id number] [address] [place] [phone] 13 Mar, 2016 [facility] [address] [id number] [address] [place] [phone] 19 Feb, 2016 Carpal tunnel syndrome of ri ght wrist G56.01 [facility] [address] [id number] [address] [place] [phone] 12 Feb, 2016 [facility] [address] [id number] [address] [place] [address] 12 Feb, 2016 [facility] [address] [id number] [address] [place] [address] Jan, Pain of left hand M79.642 an d Pain in right hand M79.641 [facility] [address] [id number] [address] [place] [address] Dec, Thoracic neuritis M54.14 and Lumbar neuritis M54.16 [facility] [address] [id number] [address] [place] [phone] Nov, [facility] [address] [id number] [address] [place] [phone] Sep, [facility] [address] [id number] [address] [place] [address], [place] [address] Sep, [facility] [address] [id number] [address] [place] [address], [place] [address] Jul, [facility] [address] [id number] [address] [place] [phone] Jul, [facility] [address] [id number] [address] [place] [phone] Jan, [facility] [address] [id number] [address] [place] [phone] Jan, [facility] [address] [id number] [address] [place] [phone] Jan, [facility] [address] [id number] [address] [place] [phone] Jan, [facility] [address] [id number] [address] [place] [phone] Jan, [facility] [address] [id number] [address] [place] [phone] Jan, [facility] [address] [id number] [address] [place] [phone] Dec, [facility] [address] [id number] [address] [place] [phone] Dec, [facility] [address] [id number] [address] [place] [phone] Dec, [facility] [address] [id number] [address] [place] [phone] Dec, [facility] [address] [id number] [address] [place] [address], [place] [address] Nov, [facility] [address] [id number] [address] [place] [address], [place] [address] Nov, [facility] [address] [id number] [address] [place] [address], [place] [address] Nov, [facility] [address] [id number] [address] [place] [address], [place] [address] Nov, [facility] [address] [id number] [address] [place] [address], [place] [address] October, [facility] [address] [id number] [address] [place] [address], [place] [address] October, [facility] [address] [id number] [address] [place] [address], [place] [address] October, [facility] [address] [id number] [address] [place] [address], [place] [address] October, [facility] [address] [id number] [address] [place] [address], [place] [address] October, [facility] [address] [id number] [address] [place] [address], [place] [address] October, [facility] [address] [id number] [address] [place] [address], [place] [address] October, [facility] [address] [id number] [address] [place] [address], [place] [address] October, [facility] [address] [id number] [address] [place] [address], [place] [address] October, [facility] [address] [id number] [address] [place] [address], [place] [address] October, [facility] [address] [id number] [address] [place] [address], [place] [address] Sep, [facility] [address] [id number] [address] [place] [address], [place] [address] 12 Sep, 2012 [facility] [address] [id number] [address] [place] [address], [place] [address] 06 Sep, 2012 [facility] [address] [id number] [address] [place] [address], [place] [address] 04 Sep, 2012 [facility] [address] [id number] [address] [place] [address], [place] [address] 04 Sep, 2012 [facility] [address] [id number] [address] [place] [address], [place] [address] 12 Aug, 2012 [facility] [address] [id number] [address] [place] [address], [place] [address] 08 Aug, 2012 [facility] [address] [id number] [address] [place] [address], [place] [address] 07 Aug, 2012 [facility] [address] [id number] [address] [place] [address], [place] [address] 06 Aug, 2012 [facility] [address] [id number] [address] [place] [address], [place] [address] 04 Aug, 2012 [facility] [address] [id number] [address] [place] [address], [place] [address] 06 Jul, 2012 [facility] [address] [id number] [address] [place] [id number] 15 Jun, 2012 [facility] [address] [id number] [address] [place] [address], [place] [address] 14 Jun, 2012 [facility] [address] [id number] [address] [place] [address], [place] [address] Jun, [facility] [address] [id number] [address] [place] [address], [place] [address] Jun, [facility] [address] [id number] [address] [place] [address], [place] [address] May, [facility] [address] [id number] [address] [place] [address], [place] [address] May, [facility] [address] [id number] [address] [place] [address], [place] [address] 14 May, 2012 [facility] [address] [id number] [address] [place] [address], [place] [address] 13 May, 2012 [facility] [address] [id number] [address] [place] [address], [place] [address] 13 May, 2012 [facility] [address] [id number] [address] [place] [address], [place] [address] 15 Apr, 2012 [facility] [address] [id number] [address] [place] [address], [place] [address] 15 Apr, 2012 [facility] [address] [id number] [address] [place] [address], [place] [address] 12 Apr, 2012 [facility] [address] [id number] [address] [place] [address], [place] [address] Apr, [facility] [address] [id number] [address] [place] [address], [place] [address] Apr, [facility] [address] [id number] [address] [place] [address], [place] [address] Apr, [facility] [address] [id number] [address] [place] [address], [place] [address] Apr, [facility] [address] [id number] [address] [place] [address], [place] [address] Apr, [facility] [address] [id number] [address] [place] [address] 15 Mar, 2012 [facility] [address] [id number] [address] [place] [address], [place] [address] Mar, [facility] [address] [id number] [address] [place] [address], [place] [address] Feb, [facility] [address] [id number] [address] [place] [address], [place] [address] Jan, [facility] [address] [id number] [address] [place] [address], [place] [address] Jan, [facility] [address] [id number] [address] [place] [address], [place] [address] Dec, [facility] [address] [id number] [address] [place] [address], [place] [address] Dec, [facility] [address] [id number] [address] [place] [address], [place] [address] October, [facility] [address] [id number] [address] [place] [address], [place] [address] October, [facility] [address] [id number] [address] [place] [address], [place] [address] October, [facility] [address] [id number] [address] [place] [address], [place] [address] October, [facility] [address] [id number] [address] [place] [address], [place] [address] October, [facility] [address] [id number] [address] [place] [address], [place] [address] Sep, [facility] [address] [id number] [address] [place] [address], [place] [address] Sep, [facility] [address] [id number] [address] [place] [address], [place] [address] Sep, [facility] [address] [id number] [address] [place] [address], [place] [address] Sep, [facility] [address] [id number] [address] [place] [address], [place] [address] Aug, [facility] [address] [id number] [address] [place] [address], [place] [address] Jul, [facility] [address] [id number] [address] [place] [address], [place] [address] Jul, [facility] [address] [id number] [address] [place] [address], [place] [address] Jul, [facility] [address] [id number] [address] [place] [address] Jun, [facility] [address] [id number] [address] [place] [address] Jun, [facility] [address] [id number] [address] [place] [address] May, [facility] [address] [id number] [address] [place] [address] May, [facility] [address] [id number] [address] [place] [address] May, [facility] [address] [id number] [address] [place] [address] Apr, [facility] [address] [id number] [address] [place] [address] Apr, [facility] [address] [id number] [address] [place] [phone] Apr, [facility] [address] [id number] [address] [place] [phone] Apr, [facility] [address] [id number] [address] [place] [phone] Apr, [facility] [address] [id number] [address] [place] [phone] Mar, [facility] [address] [id number] [address] [place] [phone] Mar, [facility] [address] [id number] [address] [place] [phone] Mar, IMMUNIZATIONS No Known Immunizations SOCIAL HISTORY Never Assessed REASON FOR VISIT Controlled Med Refill/Requests return call PLAN OF CARE VITAL SIGNS MEDICATIONS Medication Instructions Dosage Frequency Start Date End Date Duration S deborahus Oxycodone HCl 10 mg Orally 3 times a day 1 tablet as needed 8h 28 May, 2017 Jun, 28 days Active Cyclobenzaprine HCl 10 mg [...]
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
--- OUTSIDE RECORDS SUMMARY | 2019-09-13 07:26 | XMS REPORT ---
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 [id number] [address] [place] [address] Aug, Lumbago with sciatica, right side M54.41 and BMI 40.0-44.9, adult Z68.41 [place] [id number] [place] [address] Jul, BMI 40.0-44.9, adult Z68.41 [place] [address] [place] [id number] [address] [place] [address] Jul, Lumbago with sciatica, right side M54.41 and Other chronic pain G89.29 [place] [address] [place] [id number] [address] [place] [address] Jul, [place] [address] [id number] [address] [place] [address] Jun, Other chronic pain G89.29 an d BMI 40.0-44.9, adult Z68.41 [place] [address] [facility] [id number] [address] [place] [address] Jun, [facility] [address] [facility] [id number] [address] [place] [address] Jun, [facility] [address] [id number] [address] [place] [address] Jun, [facility] [address] [place] [id number] [address] [place] [address] Jun, BMI 40.0-44.9, adult Z68.41 ; Lumbago with sciatica, right side M54.41 and Intractable migraine without aura and with status migrainosus G43.011 [facility] [address] [place] [id number] [address] [place] [address] May, BMI 40.0-44.9, adult Z68.41 [facility] [address] [place] [id number] [address] [place] [address] May, BMI 40.0-44.9, adult Z68.41 [facility] [address] [place] [id number] [address] [place] [address] May, BMI 40.0-44.9, adult Z68.41 [facility] [address] [place] [id number] [address] [place] [address] Apr, [facility] [address] [place] [id number] [address] [place] [address] Apr, BMI 40.0-44.9, adult Z68.41 ; Lumbago with sciatica, right side M54.41 and Intractable migraine without aura and with status migrainosus G43.011 [facility] [address] [place] [id number] [address] [place] [address] Apr, [facility] [address] [place] [id number] [address] [place] [address] Apr, [facility] [address] [place] [id number] [address] [place] [address] Apr, [facility] [address] [id number] [address] [place] [address] Mar, Anxiety F41.9 [facility] [address] [id number] [address] [place] [address] Mar, [facility] [address] [id number] [address] [place] [address] Mar, [facility] [address] [id number] [address] [place] [address] Mar, [facility] [address] [id number] [address] [place] [address] Mar, [facility] [address] [id number] [address] [place] [address] Mar, [facility] [address] [id number] [address] [place] [address] Mar, Flexural eczema L20.82 [facility] [address] [id number] [address] [place] [address] Mar, Anxiety F41.9 [facility] [address] [id number] [address] [place] [address] Feb, Anxiety F41.9 and Lumbago wi th sciatica, right side M54.41 [facility] [address] [id number] [address] [place] [address] Feb, [facility] [address] [id number] [address] [place] [address] Feb, Anxiety F41.9 [facility] [address] [id number] [address] [place] [address] Jan, Anxiety F41.9 and Lumbago wi th sciatica, right side M54.41 [facility] [address] [id number] [address] [place] [address] Jan, Lumbago with sciatica, right side M54.41 [facility] [address] [id number] [address] [place] [address] Jan, Anxiety F41.9 [facility] [address] [id number] [address] [place] [address] Dec, Lumbago with sciatica, right side M54.41 and Anxiety F41.9 [facility] [address] [id number] [address] [place] [address] Dec, Anxiety F41.9 and Lumbago wi th sciatica, right side M54.41 [facility] [address] [id number] [address] [place] [address] Nov, [facility] [address] [id number] [address] [place] [address] Nov, [facility] [address] [id number] [address] [place] [address] Nov, Anxiety F41.9 and 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 [facility] [address] [id number] [address] [place] [address] Nov, Anxiety F41.9 [facility] [address] [id number] [address] [place] [address] October, Anxiety F41.9 ; Low back [place] n M54.5 and Pain in right knee M25.561 [facility] [address] [id number] [address] [place] [address] Sep, Lumbago with sciatica, right side M54.41 [facility] [address] [id number] [address] [place] [address] Sep, [facility] [address] [id number] [address] [place] [address] Aug, Lumbago with sciatica, right side M54.41 [facility] [address] [id number] [address] [place] [address] Aug, [facility] [address] [facility] [id number] [address] [place] [address] Aug, [facility] [address] [facility] [id number] [address] [place] [address] Aug, [facility] [address] [facility] [id number] [address] [place] [address] Aug, Fever and chills R50.9 [facility] [address] [place] [id number] [address] [place] [address] Aug, Bipolar disorder, current ep isode mixed, moderate F31.62 and Other chronic pain G89.29 [facility] [address] [place] [id number] [address] [place] [address] Aug, Lumbago with sciatica, right side M54.41 [facility] [address] [place] [id number] [address] [place] [address] Aug, [facility] [address] [place] [id number] [address] [place] [address] Jul, Cellulitis of back except bu ttock L03.312 [facility] [address] [place] [id number] [address] [place] [address] Jul, [facility] [address] [place] [id number] [address] [place] [address] Jul, [facility] [address] [facility] [id number] [address] [place] [address] Jul, Lumbago with sciatica, right side M54.41 [facility] [address] [id number] [address] [place] [address] Jul, Lumbago with sciatica, right side M54.41 [facility] [address] [facility] [id number] [address] [place] [phone] Jun, [facility] [address] [place] [id number] [address] [place] [address] May, Lumbago with sciatica, right side M54.41 and Bipolar disorder, current episode mixed, moderate F31.62 [facility] [address] [id number] [address] [place] [address] May, [facility] [address] [id number] [address] [place] [address] May, Periodontal abscess K05.219 [facility] [address] [id number] [address] [place] [address] Apr, Lumbago with sciatica, right side M54.41 [facility] [address] [id number] [address] [place] [address] Apr, [facility] [address] [id number] [address] [place] [address] Mar, Lumbago with sciatica, right side M54.41 and Other chronic pain G89.29 [facility] [address] [id number] [address] [place] [address] 17 Mar, 2016 [facility] [address] [id number] [address] [place] [phone] 14 Mar, 2016 [facility] [address] [id number] [address] [place] [phone] 13 Mar, 2016 [facility] [address] [id number] [address] [place] [phone] 19 Feb, 2016 Carpal tunnel syndrome of ri ght wrist G56.01 [facility] [address] [id number] [address] [place] [address] 12 Feb, 2016 [facility] [address] [id number] [address] [place] [address] 12 Feb, 2016 [facility] [address] [id number] [address] [place] [address] Jan, Pain of left hand M79.642 an d Pain in right hand M79.641 [facility] [address] [id number] [address] [place] [address] Dec, Thoracic neuritis M54.14 and Lumbar neuritis M54.16 [facility] [address] [id number] [address] [place] [phone] Nov, [facility] [address] [id number] [address] [place] [address] Sep, [facility] [address] [id number] [address] [place] [address], [place] [address] Sep, [facility] [address] [id number] [address] [place] [address], [place] [address] Jul, [facility] [address] [id number] [address] [place] [address] Jul, [facility] [address] [id number] [address] [place] [address] Jan, [facility] [address] [id number] [address] [place] [address] Jan, [facility] [address] [id number] [address] [place] [address] Jan, [facility] [address] [id number] [address] [place] [phone] Jan, [facility] [address] [id number] [address] [place] [address] Jan, [facility] [address] [id number] [address] [place] [phone] Jan, [facility] [address] [id number] [address] [place] [phone] Dec, [facility] [address] [id number] [address] [place] [address] Dec, [facility] [address] [id number] [address] [place] [phone] Dec, [facility] [address] [id number] [address] [place] [phone] Dec, [facility] [address] [id number] [address] [place] [address], [place] [address] Nov, [facility] [address] [id number] [address] [place] [address], [place] [address] Nov, [facility] [address] [id number] [address] [place] [address], [place] [address] Nov, [facility] [address] [id number] [address] [place] [address], [place] [address] Nov, [facility] [address] [id number] [address] [place] [address], [place] [address] October, [facility] [address] [id number] [address] [place] [address], [place] [address] October, [facility] [address] [id number] [address] [place] [address], [place] [address] October, [facility] [address] [id number] [address] [place] [address], [place] [address] October, [facility] [address] [id number] [address] [place] [address], [place] [address] October, [facility] [address] [id number] [address] [place] [address], [place] [address] October, [facility] [address] [id number] [address] [place] [address], [place] [address] October, [facility] [address] [id number] [address] [place] [address], [place] [address] October, [facility] [address] [id number] [address] [place] [address], [place] [address] October, [facility] [address] [id number] [address] [place] [address], [place] [address] October, [facility] [address] [id number] [address] [place] [address], [place] [address] Sep, [facility] [address] [id number] [address] [place] [address], [place] [address] 12 Sep, 2012 [facility] [address] [id number] [address] [place] [address], [place] [address] 06 Sep, 2012 [facility] [address] [id number] [address] [place] [address], [place] [address] 04 Sep, 2012 [facility] [address] [id number] [address] [place] [address], [place] [address] 04 Sep, 2012 [facility] [address] [id number] [address] [place] [address], [place] [address] 12 Aug, 2012 [facility] [address] [id number] [address] [place] [address], [place] [address] 08 Aug, 2012 [facility] [address] [id number] [address] [place] [address], [place] [address] 07 Aug, 2012 [facility] [address] [id number] [address] [place] [address], [place] [address] 06 Aug, 2012 [facility] [address] [id number] [address] [place] [address], [place] [address] 04 Aug, 2012 [facility] [address] [id number] [address] [place] [address], [place] [address] 06 Jul, 2012 [facility] [address] [id number] [address] [place] [id number] 15 Jun, 2012 [facility] [address] [id number] [address] [place] [address], [place] [address] 14 Jun, 2012 [facility] [address] [id number] [address] [place] [address], [place] [address] Jun, [facility] [address] [id number] [address] [place] [address], [place] [address] Jun, [facility] [address] [id number] [address] [place] [address], [place] [address] May, [facility] [address] [id number] [address] [place] [address], [place] [address] May, [facility] [address] [id number] [address] [place] [address], [place] [address] 14 May, 2012 [facility] [address] [id number] [address] [place] [address], [place] [address] 13 May, 2012 [facility] [address] [id number] [address] [place] [address], [place] [address] 13 May, 2012 [facility] [address] [id number] [address] [place] [address], [place] [address] 15 Apr, 2012 [facility] [address] [id number] [address] [place] [address], [place] [address] 15 Apr, 2012 [facility] [address] [id number] [address] [place] [address], [place] [address] 12 Apr, 2012 [facility] [address] [id number] [address] [place] [address], [place] [address] Apr, [facility] [address] [id number] [address] [place] [address], [place] [address] Apr, [facility] [address] [id number] [address] [place] [address], [place] [address] Apr, [facility] [address] [id number] [address] [place] [address], [place] [address] Apr, [facility] [address] [id number] [address] [place] [address], [place] [address] Apr, [facility] [address] [id number] [address] [place] [address] 15 Mar, 2012 [facility] [address] [id number] [address] [place] [address], [place] [address] Mar, [facility] [address] [id number] [address] [place] [address], [place] [address] Feb, [facility] [address] [id number] [address] [place] [address], [place] [address] Jan, [facility] [address] [id number] [address] [place] [address], [place] [address] Jan, [facility] [address] [id number] [address] [place] [address], [place] [address] Dec, [facility] [address] [id number] [address] [place] [address], [place] [address] Dec, [facility] [address] [id number] [address] [place] [address], [place] [address] October, [facility] [address] [id number] [address] [place] [address], [place] [address] October, [facility] [address] [id number] [address] [place] [address], [place] [address] October, [facility] [address] [id number] [address] [place] [address], [place] [address] October, [facility] [address] [id number] [address] [place] [address], [place] [address] October, [facility] [address] [id number] [address] [place] [address], [place] [address] Sep, [facility] [address] [id number] [address] [place] [address], [place] [address] Sep, [facility] [address] [id number] [address] [place] [address], [place] [address] Sep, [facility] [address] [id number] [address] [place] [address], [place] [address] Sep, [facility] [address] [id number] [address] [place] [address], [place] [address] Aug, [facility] [address] [id number] [address] [place] [address], [place] [address] Jul, [facility] [address] [id number] [address] [place] [address], [place] [address] Jul, [facility] [address] [id number] [address] [place] [address], [place] [id number] Jul, [facility] [address] [id number] [address] [place] [id number] Jun, [facility] [address] [id number] [address] [place] [phone] Jun, [facility] [address] [id number] [address] [place] [id number] May, [facility] [address] [id number] [address] [place] [phone] May, [facility] [address] [id number] [address] [place] [phone] May, [facility] [address] [id number] [address] [place] [id number] Apr, [facility] [address] [id number] [address] [place] [id number] Apr, [facility] [address] [id number] [address] [place] [id number] Apr, [facility] [address] [id number] [address] [place] [id number] Apr, [facility] [address] [id number] [address] [place] [id number] Apr, [facility] [address] [id number] [address] [place] [id number] Mar, [facility] [address] [id number] [address] [place] [id number] Mar, [facility] [address] [id number] [address] [place] [id number] Mar, IMMUNIZATIONS No Known Immunizations SOCIAL HISTORY [...]
--- OUTSIDE RECORDS SUMMARY | 2019-09-13 07:26 | XMS REPORT ---
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 Active 627511097 Problem Flexural eczema L20.82 Active 5709 2005 Problem Other chronic pain G89.29 Active 8 0222028 Problem Lumbago with sciatica, right side M54.41 Active 031816092 Problem Anxiety F41.9 Active 62697535 Problem Bipolar disorder, current episode mixed, moderate F31.62 Active 100255809 ALLERGIES Substance Reaction Event Type Date Status Ibuprofen vomiting blood Drug Allergy Feb, Active Cephalexin Unknown Drug Allergy Feb, Active ENCOUNTERS Encounter Location Date Diagnosis [place] [address] [place] [id number] [address] [place] [place] [address] Aug, Lumbago with sciatica, right side M54.41 and BMI 40.0-44.9, adult Z68.41 [place] [address] [place] [id number] [address] [place] [address] Jul, BMI 40.0-44.9, adult Z68.41 [facility] [address] [facility] [id number] [address] [place] [address] Jul, Lumbago with sciatica, right side M54.41 and Other chronic pain G89.29 [facility] [address] [facility] [id number] [address] [place] [address] Jul, [place] [address] [place] [id number] [address] [place] [address] Jun, Other chronic pain G89.29 an d BMI 40.0-44.9, adult Z68.41 [place] [id number] [place] [id number] [address] [place] [address] Jun, [facility] [address] [place] [id number] [address] [place] [place] [address] Jun, [facility] [address] [place] [id number] [address] [place] [place] [address] Jun, [facility] [address] [place] [id number] [place] [address] Jun, BMI 40.0-44.9, adult Z68.41 ; Lumbago with sciatica, right side M54.41 and Intractable migraine without aura and with status migrainosus G43.011 [place] [id number] [place] [id number] [address] [place] [place] [address] May, BMI 40.0-44.9, adult Z68.41 [place] [address] [place] [id number] [place] [address] May, BMI 40.0-44.9, adult Z68.41 [place] [address] [place] [id number] [place] [address] May, BMI 40.0-44.9, adult Z68.41 [place] [address] [place] [id number] [place] [address] Apr, [place] [address] [place] [id number] [place] [address] Apr, BMI 40.0-44.9, adult Z68.41 ; Lumbago with sciatica, right side M54.41 and Intractable migraine without aura and with status migrainosus G43.011 [facility] [address] [place] [id number] [address] [place] [address] Apr, [place] [address] [place] [id number] [place] [address] Apr, [facility] [address] [id number] [address] [place] [place] [address] Apr, [facility] [address] [id number] [address] [place] [place] [address] Mar, Anxiety F41.9 [facility] [address] [id number] [address] [place] [place] [address] Mar, [facility] [address] [id number] [address] [place] [place] [address] Mar, [facility] [address] [id number] [address] [place] [place] [address] Mar, [facility] [address] [id number] [address] [place] [place] [address] Mar, [facility] [address] [id number] [address] [place] [place] [address] Mar, [facility] [address] [id number] [address] [place] [address] Mar, Flexural eczema L20.82 [facility] [address] [id number] [address] [place] [address] Mar, Anxiety F41.9 [facility] [address] [id number] [address] [place] [place] [address] Feb, Anxiety F41.9 and Lumbago wi th sciatica, right side M54.41 [facility] [address] [id number] [address] [place] [address] 15 Feb, 2017 [facility] [address] [id number] [address] [place] [address] 08 Feb, 2017 Anxiety F41.9 [facility] [address] [facility] [id number] [address] [place] [address] Jan, Anxiety F41.9 and Lumbago wi th sciatica, right side M54.41 [facility] [address] [id number] [address] [place] [address] Jan, Lumbago with sciatica, right side M54.41 [facility] [address] [id number] [address] [place] [address] Jan, Anxiety F41.9 [facility] [address] [id number] [address] [place] [address] Dec, Lumbago with sciatica, right side M54.41 and Anxiety F41.9 [facility] [address] [id number] [address] [place] [address] Dec, Anxiety F41.9 and Lumbago wi th sciatica, right side M54.41 [facility] [address] [id number] [address] [place] [address] Nov, [facility] [address] [id number] [address] [place] [place] [address] Nov, [facility] [address] [id number] [address] [place] [address] Nov, Anxiety F41.9 and 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 [facility] [address] [id number] [address] [place] [place] [address] Nov, Anxiety F41.9 [facility] [address] [id number] [address] [place] [place] [address] October, Anxiety F41.9 ; Low back [place] n M54.5 and Pain in right knee M25.561 [facility] [address] [id number] [address] [place] [address] Sep, Lumbago with sciatica, right side M54.41 [facility] [address] [id number] [address] [place] [address] Sep, [facility] [address] [id number] [address] [place] [place] [address] Aug, Lumbago with sciatica, right side M54.41 [facility] [address] [place] [id number] [address] [place] [address] Aug, [facility] [address] [place] [id number] [address] [place] [place] [address] Aug, [facility] [address] [place] [id number] [address] [place] [address] Aug, [facility] [address] [place] [id number] [place] [address] Aug, Fever and chills R50.9 [facility] [address] [place] [id number] [place] [address] Aug, Bipolar disorder, current ep isode mixed, moderate F31.62 and Other chronic pain G89.29 [facility] [address] [place] [id number] [place] [address] Aug, Lumbago with sciatica, right side M54.41 [facility] [address] [place] [id number] [address] [place] [address] Aug, [facility] [address] [place] [id number] [place] [address] Jul, Cellulitis of back except bu ttock L03.312 [facility] [address] [place] [id number] [address] [place] [address] Jul, [facility] [address] [place] [id number] [address] [place] [address] Jul, [facility] [address] [place] [id number] [address] [place] [address] Jul, Lumbago with sciatica, right side M54.41 [facility] [address] [place] [id number] [place] [address] Jul, Lumbago with sciatica, right side M54.41 [facility] [address] [place] [id number] [address] [place] [address] Jun, [facility] [address] [id number] [address] [place] [address] May, Lumbago with sciatica, right side M54.41 and Bipolar disorder, current episode mixed, moderate F31.62 [facility] [address] [id number] [address] [place] [address] May, [facility] [address] [id number] [address] [place] [place] [address] May, Periodontal abscess K05.219 [facility] [address] [id number] [address] [place] [address] Apr, Lumbago with sciatica, right side M54.41 [facility] [address] [id number] [address] [place] [address] Apr, [facility] [address] [id number] [address] [place] [address] Mar, Lumbago with sciatica, right side M54.41 and Other chronic pain G89.29 [facility] [address] [id number] [address] [place] [address] 17 Mar, 2016 [facility] [address] [id number] [address] [place] [address] 14 Mar, 2016 [facility] [address] [id number] [address] [place] [address] 13 Mar, 2016 [facility] [address] [id number] [address] [place] [address] 19 Feb, 2016 Carpal tunnel syndrome of ri ght wrist G56.01 [facility] [address] [id number] [address] [place] [address] 12 Feb, 2016 [facility] [address] [id number] [address] [place] [address] 12 Feb, 2016 [facility] [address] [id number] [address] [place] [address] Jan, Pain of left hand M79.642 an d Pain in right hand M79.641 [facility] [address] [id number] [address] [place] [address], [place] [address] Dec, Thoracic neuritis M54.14 and Lumbar neuritis M54.16 [facility] [address] [id number] [address] [place] [address], [place] [address] Nov, [facility] [address] [id number] [address] [place] [address], [place] [address] Sep, [facility] [address] [id number] [address] [place] [address], [place] [address] Sep, [facility] [address] [id number] [address] [place] [address], [place] [address] Jul, [facility] [address] [id number] [address] [place] [address], [place] [address] Jul, [facility] [address] [id number] [address] [place] [address], [place] [address] Jan, [facility] [address] [id number] [address] [place] [address], [place] [address] Jan, [facility] [address] [id number] [address] [place] [address], [place] [address] Jan, [facility] [address] [id number] [address] [place] [address], [place] [address] Jan, [facility] [address] [id number] [address] [place] [address], [place] [address] Jan, [facility] [address] [id number] [address] [place] [address] Jan, [facility] [address] [id number] [address] [place] [address], [place] [address] Dec, [facility] [address] [id number] [address] [place] [address], [place] [address] Dec, [facility] [address] [id number] [address] [place] [address] Dec, [facility] [address] [id number] [address] [place] [address], [place] [address] Dec, [facility] [address] [id number] [address] [place] [address], [place] [address] Nov, [facility] [address] [id number] [address] [place] [address], [place] [address] Nov, [facility] [address] [id number] [address] [place] [address], [place] [address] Nov, [facility] [address] [id number] [address] [place] [address], [place] [address] Nov, [facility] [address] [id number] [address] [place] [address], [place] [address] October, [facility] [address] [id number] [address] [place] [address], [place] [address] October, [facility] [address] [id number] [address] [place] [address], [place] [address] October, [facility] [address] [id number] [address] [place] [address], [place] [address] October, [facility] [address] [id number] [address] [place] [address], [place] [address] October, [facility] [address] [id number] [address] [place] [address], [place] [address] October, [facility] [address] [id number] [address] [place] [address], [place] [address] October, [facility] [address] [id number] [address] [place] [address], [place] [address] October, [facility] [address] [id number] [address] [place] [address], [place] [address] October, [facility] [address] [id number] [address] [place] [address], [place] [address] October, [facility] [address] [id number] [address] [place] [address], [place] [address] Sep, [facility] [address] [id number] [address] [place] [address], [place] [id number] Sep, [facility] [address] [id number] [address] [place] [address], [place] [address] Sep, [facility] [address] [id number] [address] [place] [address], [place] [address] Sep, [facility] [address] [id number] [address] [place] [address], [place] [address] Sep, [facility] [address] [id number] [address] [place] [address], [place] [address] Aug, [facility] [address] [id number] [address] [place] [address], [place] [id number] 08 Aug, 2012 [facility] [address] [id number] [address] [place] [address], [place] [address] 07 Aug, 2012 [facility] [address] [id number] [address] [place] [address], [place] [address] 06 Aug, 2012 [facility] [address] [id number] [address] [place] [address], [place] [address] 04 Aug, 2012 [facility] [address] [id number] [address] [place] [address], [place] [address] 06 Jul, 2012 [facility] [address] [id number] [address] [place] [id number] 15 Jun, 2012 [facility] [address] [id number] [address] [place] [address], [place] [address] 14 Jun, 2012 [facility] [address] [id number] [address] [place] [address], [place] [address] Jun, [facility] [address] [id number] [address] [place] [address], [place] [address] 09 Jun, 2012 [facility] [address] [id number] [address] [place] [address], [place] [address] May, [facility] [address] [id number] [address] [place] [address], [place] [address] 15 May, 2012 [facility] [address] [id number] [address] [place] [address], [place] [address] 14 May, 2012 [facility] [address] [id number] [address] [place] [address], [place] [address] 13 May, 2012 [facility] [address] [id number] [address] [place] [address], [place] [id number] 13 May, 2012 [facility] [address] [id number] [address] [place] [address], [place] [address] 15 Apr, 2012 [facility] [address] [id number] [address] [place] [address], [place] [address] 15 Apr, 2012 [facility] [address] [id number] [address] [place] [address], [place] [address] 12 Apr, 2012 [facility] [address] [id number] [address] [place] [address], [place] [address] Apr, [facility] [address] [id number] [address] [place] [address], [place] [address] Apr, [facility] [address] [id number] [address] [place] [address], [place] [address] Apr, [facility] [address] [id number] [address] [place] [address], [place] [address] Apr, [facility] [address] [id number] [address] [place] [address], [place] [address] Apr, [facility] [address] [id number] [address] [place] [address], [place] [address] 15 Mar, 2012 [facility] [address] [id number] [address] [place] [address], [place] [address] 15 Mar, 2012 [facility] [address] [id number] [address] [place] [address], [place] [address] 11 Feb, 2012 [facility] [address] [id number] [address] [place] [address], [place] [address] Jan, [facility] [address] [id number] [address] [place] [address], [place] [address] Jan, [facility] [address] [id number] [address] [place] [address], [place] [address] Dec, [facility] [address] [id number] [address] [place] [address], [place] [address] Dec, [facility] [address] [id number] [address] [place] [address], [place] [address] October, [facility] [address] [id number] [address] [place] [address], [place] [address] October, [facility] [address] [id number] [address] [place] [address], [place] [address] October, [facility] [address] [id number] [address] [place] [address], [place] [address] October, [facility] [address] [id number] [address] [place] [address], [place] [address] October, [facility] [address] [id number] [address] [place] [address], [place] [address] Sep, [facility] [address] [id number] [address] [place] [address], [place] [address] Sep, [facility] [address] [id number] [address] [place] [address], [place] [address] Sep, [facility] [address] [id number] [address] [place] [address], [place] [address] Sep, [facility] [address] [id number] [address] [place] [address], [place] [address] Aug, [facility] [address] [id number] [address] [place] [address], [place] [address] Jul, [facility] [address] [id number] [address] [place] [address], [place] [phone] Jul, [facility] [address] [id number] [address] [phone] Jul, [facility] [address] [id number] [address] [place] [phone] Jun, [facility] [address] [id number] [address] [place] [phone] Jun, [facility] [address] [id number] [address] [place] [phone] May, [facility] [address] [id number] [address] [place] [phone] May, [facility] [address] [id number] [address] [place] [phone] May, [facility] [address] [id number] [address] [place] [phone] Apr, [facility] [address] [id number] [address] [place] [phone] Apr, [facility] [address] [id number] [address] [place] [phone] Apr, [facility] [address] [id number] [address] [place] [phone] Apr, [facility] [address] [id number] [address] [place] [id number] Apr, [facility] [address] [id number] [address] [place] [phone] Mar, [facility] [address] [id number] [address] [place] [phone] Mar, [facility] [address] [id number] [address] [place] [phone] Mar, IMMUNIZATIONS No Known Immunizations SOCIAL HISTORY Never Assessed REASON FOR VISIT Controlled Med f/u--[place] PLAN OF CARE VITAL SIGNS Height 64 in 2017-02-27 Weight 227.3 lbs 2017-02-27 Temperature 98.3 degrees Fahrenheit 2017-02-27 Heart Rate 74 bpm 2017-02-27 Respiratory Rate 20 2017-02-27 BMI 39.01 kg/m2 2017-02-27 Blood pressure systolic 136 mmHg 2017-02-27 Blood pressure diastolic 80 mmHg 2017-02-27 MEDICATIONS Medication Instructions Dosage Frequency Start Date End Date Duration S tat Albuterol Sulfate 90 mcg/actuation Inhalation every 4-6 hour s as needed 2 puffs by Inhalation route every 4-6 hours as needed PRN cough or wheezing Nov, 30 days Active Diclofenac Sodium 75 MG Orally Once a day 1 tablet 24h Dec, Active HydrOXYzine HCl 10 mg Orally PRN 1 tablet Active [place] 10-325 MG Orally 4 times a day 1 tablet as needed 6h 18 S 2016 28 days Active Triamcinolone Acetonide 0.1 % Externally Twice a day 1 appli cation to affected area 12h Mar, Active Alprazolam 1 MG Orally 4 times a day 1 tablet 6h 15 Oct, 2016 28 days Active Benadryl Allergy 25 MG [...]
--- OUTSIDE RECORDS SUMMARY | 2019-09-13 07:26 | XMS REPORT ---
Author Author Tiffany BALDERAS Organization [facility] Address [address] [place] [address] Care Team Providers Care Instrument Fitter Name Role Phone DESHAWN BALDERAS Unavailable PROBLEMS Type Condition ICD9-CM Code [id number] Code Onset Dates Condition S tatus SNOMED Code Problem Anxiety F41.9 Active 79172793 Problem Bipolar disorder, current episode mixed, moderate F31.62 Active 251743683 Problem Other chronic pain G89.29 Active 8 9729762 Problem Lumbago with sciatica, right side M54.41 Active 502344444 ALLERGIES Unknown Allergies SOCIAL HISTORY No smoking Hx information available PLAN OF CARE VITAL SIGNS MEDICATIONS Unknown Medications RESULTS No Results PROCEDURES No Known procedures IMMUNIZATIONS No Known Immunizations
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
--- OUTSIDE RECORDS SUMMARY | 2019-09-13 07:26 | XMS REPORT ---
Author Author Tiffany BALDERAS [facility] eClinicalWorks Address Unknown Phone Unavailable Care Team Providers Care Setter Helper Name Role Phone DESHAWN BALDERAS CP Unavailable [...] Instructions Start Date End Date Status Dosage Albuterol Sulfate [facility] [address]-47 90 mcg/actuation November 11, 2012 2 puffs by Inhalation route every 4-6 hours as needed PRN cough or wheezing BuSpar NDC 0 10 mg Orally Once a day 1/2 tablet Cyclobenzaprine HCl [facility] [address]-33 10 mg Orally 2 times a d ay Apr 07, 2016 Aug 05, 2016 1 tablet [place] [facility] [address]-75 10-325 MG Orally every 6 hrs as needed Apr 28, 2016 1 tablet as needed Triamcinolone Acetonide [facility] [address]-97 0.1 % Externally Twice a day Apr 07, 2016 1 application to aff ected area Diclofenac Sodium [facility] [address]-05 75 MG Orally Once a day December 07, 2015 1 tablet Procedures Procedure Coding System Code Date Office Visit, Est Pt., Level 3 CPT-4 28201 N 2015 Vital Signs Date/Time: Apr 28, 2016 Cardiac Monitoring Heart Rate 78 bpm Weight 205.5 lbs Height 64 in BMI 35.27 Index Blood Pressure Diastolic 92 mmHg Blood Pressure Systolic 140 mmHg Results No Known Results Summary Purpose eClinicalWorks Submission
--- OUTSIDE RECORDS SUMMARY | 2019-09-13 07:27 | XMS REPORT ---
Author Author Tiffany BALDERAS Organization [facility] Address [address] [place] [address] Care Team Providers Care Creative/Art Director Name Role Phone DESHAWN BALDERAS Unavailable PROBLEMS Type Condition ICD9-CM Code [id number] Code Onset Dates Condition S tatus SNOMED Code Problem Anxiety F41.9 Active 57266658 Problem Bipolar disorder, current episode mixed, moderate F31.62 Active 638681597 Problem Other chronic pain G89.29 Active 8 0648731 Problem Lumbago with sciatica, right side M54.41 Active 329261064 ALLERGIES No Information SOCIAL HISTORY Never Assessed PLAN OF CARE VITAL SIGNS MEDICATIONS Unknown Medications RESULTS No Results PROCEDURES No Known procedures IMMUNIZATIONS No Known Immunizations MEDICAL (GENERAL) HISTORY Type Description Date Medical History anxiety Medical History depression Medical History emotional trauma effecting her memory Hospitalization History childbirth only
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
--- OUTSIDE RECORDS SUMMARY | 2019-09-13 07:29 | XMS REPORT | Continuity of Care Document ---
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 COMPLAINTS [id number] 07/03/2013 19:39:00 014 20:36:00 DIS Emergency SCOTTY MARQUES APRN Via [facility] ER R HAND PAIN [id number] 07/01/2013 10:32:00 014 12:22:00 DIS Emergency GENIA VENEGAS DO [facility] ER RIGHT HAND/WRIST INJURY [id number] 06/25/2013 04:52:00 014 05:32:00 DIS Emergency EDY PARKER MD [facility] ER DENTAL PAIN [id number] 06/18/2013 10:20:00 13:05:00 DIS Emergency LIZETT GALVAN MD Via [facility] ER SORE THROAT [id number] 06/15/2013 08:24:00 014 09:31:00 DIS Emergency GENIA VENEGAS DO [facility] ER FLU SYMPTOMS [id number] 06/08/2013 00:40:00 014 01:25:00 DIS Emergency EDY PARKER MD Via [facility] ER DENTAL PAIN [id number] 06/05/2013 18:55:00 013 21:07:00 DIS Emergency OTILIO GUALLPA Via [facility] ER NAUSEA [id number] 06/04/2013 14:21:00 013 16:05:00 DIS Emergency SCOTTY MARQUES APRN Via [facility] ER L HAND INJ [id number] 02/09/2013 13:31:00 09/04/2 013 15:31:00 DIS Emergency RUBI DONAHUE, GENIA mcclendon [facility] ER LETHARGIC/NAUSEA [id number] 02/02/2013 08:40:00 013 09:01:00 DIS Emergency KATHLEEN DONAHUE, ALBERT Aaliyah [facility] ER JAW PAIN/HEADACHE [id number] 01/30/2013 04:34:00 013 05:24:00 DIS Emergency COLE LANZA, LIZETT [place] [facility] ER DENTAL PAIN [id number] 01/23/2013 12:50:00 013 13:40:00 DIS Emergency OTILIO GUALLPA [facility] ER DENTAL PAIN ON R SIDE [id number] 01/11/2013 08:50:00 013 10:06:00 DIS Emergency COLE LANZA, LIZETT [place] [facility] ER HEADACHE [id number] 01/08/2013 19:30:00 013 20:32:00 DIS Emergency KEITH LANZA, EDY A [facility] ER MIGRAINE [id number] 12/10/2012 07:09:00 013 07:42:00 DIS Emergency RUBI DONAHUE, GENIA mcclendon [facility] ER TOOTH ACHE [id number] 12/02/2012 04:41:00 013 05:38:00 DIS Emergency LUZ LANZA, MARTHA Storm [facility] ER MIGRAINE [id number] 11/21/2012 10:50:00 013 11:40:00 DIS Emergency JESSICA LANZA, SOPHY R [facility] ER L SIDE LOWER BACK PAIN [id number] 11/12/2012 17:13:00 013 15:40:00 DIS Inpatient LADARIUS LANZA, MERI Mcclendon Via [facility] WS LABOR [id number] 11/07/2012 16:06:00 013 17:30:00 DIS Out[facility] [id number] 11/05/2012 12:55:00 013 14:50:00 DIS Outpatient ROSARIO DOJOZEF Via [facility] WSo CONTRACTIONS [id number] 11/03/2012 01:53:00 013 02:32:00 DIS Emergency EDY PARKER MD Via [facility] ER MIGRAINE/35 WKS 3 DAY S [id number] 10/29/2012 22:32:00 013 02:00:00 DIS Outpatient MARLENE DOJOZEF Sandra Via [facility] WSo CONTRACTIONS [id number] 10/29/2012 14:14:00 16:48:00 DIS Outpatient JOZEF ROSARIO DO Via [facility] WSo CONTRACTIONS [id number] 10/24/2012 13:36:00 013 15:07:00 DIS Emergency OTILIO GUALLPA Via [facility] ER R SIDE LOWER GUM INFEC TION PAIN [id number] 10/23/2012 15:50:00 013 23:40:00 DIS Outpatient JOZEF ROSARIO DO Sandra [facility] WSo CONTRACTIONS [id number] 10/18/2012 21:20:00 013 17:05:00 DIS Inpatient MARLENE DONAHUE JOZEF K V ia [facility] WS C/O CONTRACTIONS [id number] 10/11/2012 14:41:00 013 17:20:00 DIS Outpatient JOZEF ROSARIO DO Sandra [facility] WSo VAG BLEEDING [id number] 10/09/2012 09:25:00 013 10:40:00 DIS Emergency SOPHY LOPEZ MD Via [facility] ER R SIDE DRY SOCKET [id number] 10/01/2012 14:40:00 013 23:59:59 CLS Outpatient PREET SILVA APRN [facility] RAD LARGE FOR GESTATIONAL AGE [id number] 09/13/2019 06:57:00 Document Registration [id number] 08/17/2012 13:48:00 Document Registration [id number] 06/21/2012 10:14:00 Document Registration [id number] 02/02/2012 18:46:00 Document Registration [id number] 09/02/2011 13:51:00 Document Registration [id number] 06/26/2011 19:00:00 Document Registration [id number] 04/08/2011 17:49:00 Document Registration [id number] 02/07/2011 20:03:00 Document Registration [id number] 02/02/2011 16:37:00 Document Registration [id number] 01/19/2011 01:16:00 Document Registration [id number] 01/07/2011 13:19:00 Document Registration [id number] 12/30/2010 18:01:00 Document Registration [id number] 11/27/2010 07:50:00 Document Registration
[2019-09-13 08:12] LABS: CLARITY,URINE CLEAR; COLOR,URINE YELLOW; GLUCOSE, URINE (UA) NEGATIVE (NEGATIVE); KETONES,URINE TRACE (NEGATIVE); LEUKOCYTE ESTERASE ,URINE TRACE (NEGATIVE); NITRITE,URINE NEGATIVE (NEGATIVE); PROTEIN,URINE TRACE (NEGATIVE)
[2019-09-13 08:25] LABS: BACTERIA,URINE TRACE /HPF; BILIRUBIN,URINE 1+ (NEGATIVE)
[2019-09-13] MEDS ORDERED: KCL 10 MEQ TAB (MICRO K) PO ONE (09:15)
[2019-09-13 10:20] VITALS: BP 110/78
== END 2019-09-13 10:20 | disposition home or self-care (01) ==
LOC: EDUNIT# 06:38 → ER 06:41
DX: R10.9 Unspecified abdominal pain (principal); R11.0 Nausea; E87.6 Hypokalemia; Z88.6 Allergy status to analgesic agent; Z87.891 Personal history of nicotine dependence; Z77.22 Contact with and (suspected) exposure to environmental tobacco smoke (acute) (chronic)
CPT/HCPCS: 36415; 80053; 81000; 83690; 84703; 85025; 86141; 87088; 96360; 96361

== ENCOUNTER 2019-09-27 02:01 | Emergency (ER) | payer MEDICAID ==
[~2019-09-27] VITALS: Ht 170 cm; Wt 113.0 kg
[2019-09-27] MEDS ORDERED: CLIN300C11 PO (02:41)
[2019-09-27] MEDS ORDERED: LIDO20SO23 MM (02:41)
[2019-09-27] MEDS ORDERED: KETO10TA PO (02:41)
--- NOTE | 2019-09-27 02:41 | ED EENT ---
History of Present Illness General Chief Complaint: Dental Problems/Pain Stated Complaint: DENTAL PAIN Source: patient, old records Exam Limitations: language barrier (PT WITH SOME EXPRESSIVE APHASIA FROM PRIOR CVA, BUT ALSO DOES NOT APPEAR TO WANT TO TALK. PT DOES ANSWER YES/NO QUESTIONS, AND IS ABLE TO SAY SOME SINGLE SYLLABLE WORDS. ) History of Present Illness Date Seen by Provider: Sep 27, 2019 Time Seen by Provider: 02:20 Initial Comments PT ARRIVES VIA POV FROM HOME--AMBULATES IN ON OWN, BUT WITH DIFFICULTY. PLACED IN WHEELCHAIR ON ARRIVAL AND BROUGHT BACK TO ROOM C/O DENTAL PAIN TO RIGHT LOWER MOLAR AREA--UNABLE TO STATE HOW LONG IT HAS BEEN GOING ON HOWEVER, PT IS WELL KNOWN TO THIS ER FROM PREVIOUS VISITS, AND HAS HAD A MULTITUDE OF VISITS FOR DENTAL PAIN/ISSUES PT STATES SHE HAS RECENTLY BEEN ON AN ANTIBIOTIC--PCN/AMOXICILLIN--FOR THIS SAME PROBLEM AND RECENTLY FINISHED IT--IS UNCLEAR WHO/WHERE/WHEN SHE WAS SEEN PT REPORTEDLY HAS RAN OUT OF PAIN MEDICATION PT DENIES FEVER NO FACIAL SWELLING PT WITH MULTITUDE OF PRIOR VISITS FOR VARIOUS COMPLAINTS, BUT NEARLY ALL ARE PAIN-RELATED COMPLAINTS PCP: [facility] Allergies and Home Medications Allergies Coded Allergies: ibuprofen (Unverified Allergy, Unknown, STOMACH PAIN, VOMITING, RASH IN THROAT, 07/19/14) shellfish derived (Verified Allergy, Unknown, 10/19/12) Home Medications Acyclovir 30 Gm Oint, 30 GM TP Q4H Prescribed by: GENIA VENEGAS on 03/24/16 0107 Amoxicillin 500 Mg Capsule, 1,000 MG PO BID Prescribed by: MARTHA MEYERS on 07/27/16 0419 Butalb/Acetaminophen/Caffeine 1 Each Capsule, 1 EACH PO Q6H PRN for HEADACHE Prescribed by: OTILIO CORTES on 02/17/16 1425 Cephalexin 500 Mg Capsule, 500 MG PO TID Prescribed by: SCOTTY MARQUES on 03/20/16 1409 Cephalexin 500 Mg Capsule, 500 MG PO TID Prescribed by: OTILIO CORTES on 07/15/16 1844 Clindamycin HCl 300 Mg Capsule, 300 MG PO QID Prescribed by: GENIA VENEGAS on 09/27/19 0241 Diclofenac Sodium 75 Mg Tablet.dr, 75 MG PO DAILY, (Reported) Hydrocodone Bit/Acetaminophen 1 Each Tablet, 1 EACH PO Q6H PRN for PAIN, (Reported) Ketorolac Tromethamine 10 Mg Tablet, 10 MG PO Q6H Prescribed by: GENIA VENEGAS on 09/27/19240 Lidocaine HCl 15 Ml Solution, 1-2 ML MM [id number] Prescribed by: GENIA VENEGAS on 09/27/19240 Methylprednisolone 4 Mg Tab.ds.pk, 4 MG PO UD Prescribed by: GENIA VENEGAS on 03/24/16106 Mupirocin 1 Gm Oin.pf.winston, 1 GM TP TID Prescribed by: GENIA VENEGAS on 03/24/16106 Mupirocin Calcium 15 Gm Cream..g., 15 GM TP BID Prescribed by: SCOTTY MARQUES on 03/20/161408 Sulfamethoxazole/Trimethoprim 1 Each Tablet, 1 EACH PO BID Prescribed by: SCOTTY MARQUES on 03/20/161408 Sulfamethoxazole/Trimethoprim 1 Each Tablet, 1 EACH PO BID Prescribed by: OTILIO CORTES on 07/15/16 184 Sulfamethoxazole/Trimethoprim 1 Each Tablet, 1 EACH PO BID Prescribed by: MARTHA MEYERS on 01/28/17 0114 Tramadol HCl 50 Mg Tablet, 50 MG PO Q6H PRN for PAIN Prescribed by: MARTHA MEYERS on 07/27/16 0419 Valacyclovir HCl 1,000 Mg Tablet, 1,000 MG PO TID Prescribed by: GENIA VENEGAS on 03/24/16106 Patient Home Medication List Home Medication List Reviewed: Yes Review of Systems Review of Systems Constitutional: see HPI; No fever Mouth: see HPI, pain; denies swelling Neurological: Pre-Existing Deficit (RIGHT SIDE WEAKNESS AND EXPRESSIVE APHASIA FROM PREVIOUS STROKE) Past Lqorxlf-Ciwaik-Vvmeea Hx Past Med/Social Hx: Reviewed and Corrections made Patient Social History Alcohol Use: Denies Use Recreational Drug Use: No Smoking Status: Current Someday Smoker Type Used: Cigarettes 2nd Hand Smoke Exposure: Yes Recent Foreign Travel: No Contact w/Someone Who Travel: No Recent Hopitalizations: No Immunizations Up To Date Tetanus Booster (TDap): Less than 5yrs Date of Influenza Vaccine: Mar 08, 2015 Seasonal Allergies Seasonal Allergies: Yes Past Medical History Surgeries: No Respiratory: Yes Asthma Cardiac: No Neurological: Yes (CVA WITH RIGHT SIDE WEAKNESS AND EXPRESSIVE APHASIA) Headaches /Migraines, Stroke Reproductive Disorders: No Female Reproductive Disorders: Denies Genitourinary: No Gastrointestinal: No Musculoskeletal: Yes (carpal tunnel syndrome bilaterally; RIGHT ARM FLEXION CONTRACTURES) Contracture Endocrine: No HEENT: Yes (DENTAL CARIES/CHRONIC DENTAL ISSUES) Cancer: No Psychosocial: Yes Anxiety, Depression Integumentary: Yes (CELLULITIS) Eczema Blood Disorders: No Family Medical History Patient reports no known family medical history. Cancer Physical Exam Vital Signs Vital Signs - First Documented 09/27/19 09/27/19 02:21 03:08 Temp 36.7 Pulse 81 Resp 20 B/P (MAP) 131/93 (106) Pulse Ox 100 O2 Delivery Room Air Height, Weight, BMI Height: 5'3" Weight: 232lbs. oz. 105.825630dn; 38.00 BMI Method:Stated General Appearance: WD/WN, no apparent distress, obese, other Eyes: bilateral eye PERRL Ears: bilateral ear auricle normal, bilateral ear canal normal, bilateral ear TM normal Nose: normal inspection Mouth/Throat: other (EXTENSIVE DENTAL CARIES; RIGHT LOWER MOLAR AREA WITH EXTENSIVE DECAY DOWN TO GUMS WITH ADJACENT GUM INFLAMMATION AND SWELLING. NO FLUCTUANCE OR DRAINAGE. NO FACIAL SWELLING OR ERYTHEMA. 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 GAIT DISTURBANCE. ) Skin: normal color (PT IS BLACK), warm/dry; No rash; tattoos/piercings (MULTIPLE TATTOOS) Progress/Results/Core Measures Results/Orders My Orders Orders - GENIA VENEGAS DO Ceftriaxone For Im Use (Rocephin For Im (09/27/19 02:45) Lidocaine 1% Inj 20 Ml (Xylocaine 1% Inj (09/27/19 02:45) Lidocaine 2% Viscous 15 Ml (Xylocaine Vi (09/27/19 02:45) Ketorolac Injection (Toradol Injection) (09/27/19 02:45) Diphenhydramine Injection (Benadryl Inje (09/27/19 02:45) Medications Given in ED Current Medications Medications Dose Ordered Sig/Mariaelena Route Start Time Stop Time Status Last Admin Dose Admin Diphenhydramine HCl 50 mg ONCE ONCE IM 09/27/19 02:45 09/27/19 02:46 DC 09/27/19 02:53 50 MG Ketorolac Tromethamine 60 mg ONCE ONCE IM 09/27/19 02:45 09/27/19 02:46 DC 09/27/19 02:53 60 MG Lidocaine HCl 2.1 ml ONCE ONCE INJ 09/27/19 02:45 09/27/19 02:46 DC 09/27/19 02:53 2.1 ML Lidocaine HCl 5 ml ONCE ONCE MM 09/27/19 02:45 09/27/19 02:46 DC 09/27/19 02:52 5 ML Vital Signs/I&O 09/27/19 09/27/19 02:21 03:08 Temp 36.7 36.7 Pulse 81 79 Resp 20 18 B/P (MAP) 131/93 (106) 130/92 (106) Pulse Ox 100 O2 Delivery Room Air Room Air Departure Impression Primary Impression: Dental caries Additional Impression: Pain, dental Disposition: HOME, SELF-CARE Condition: Stable Departure-Patient Inst. Referrals: [facility] (PCP/Family) Primary Care Physician Patient Instructions: Tooth Decay, Adult (DC), Dental Pain (DC) Add. Discharge Instructions: FREQUENT S[place] WATER SWISHES FOLLOW UP WITH DENTIST THIS WEEK FOR FURTHER CARE--CALL IN AM FOR APPOINTMENT All discharge instructions reviewed with patient and/or family. Voiced understanding. Scripts Lidocaine HCl (Lidocaine HCl Viscous) 15 Ml Solution 1-2 ML MM [id number], #120 ML Prov: GENIA VENEGAS DO 09/27/19 Ketorolac Tromethamine (Ketorolac Tromethamine) 10 Mg Tablet 10 MG PO Q6H for Pain, #15 TAB Prov: GENIA VENEGAS DO 09/27/19 Clindamycin HCl (Clindamycin HCl) 300 Mg Capsule 300 MG PO QID for 10 Days, #40 CAP Prov: GENIA VENEGAS DO 09/27/19 GENIA VENEGAS DO Sep 27, 2019 02:41
[2019-09-27] MEDS ORDERED: LIDOCAINE 1% INJ 20 ML 20 ML VIAL INJ ONE (02:45)
[2019-09-27] MEDS ORDERED: diphenhydrAMINE 50 MG/ML INJ (BENADRYL) IM ONE (02:45)
[2019-09-27] MEDS ORDERED: cefTRIAXone 1,000 MG/2.86 ml vial (IM ONLY) IM SCH (02:45)
[2019-09-27] MEDS ORDERED: LIDOCAINE 2% VISCOUS 15 ML UDC MM ONE (02:45)
[2019-09-27] MEDS ORDERED: KETOROLAC 60 MG/2 ML VIAL IM ONE (02:45)
[2019-09-27 03:08] VITALS: BP 130/92
== END 2019-09-27 03:09 | disposition home or self-care (01) ==
LOC: EDUNIT# 02:01 → ER 02:05
DX: K02.9 Dental caries, unspecified (principal); I69.320 Aphasia following cerebral infarction; Z79.899 Other long term (current) drug therapy; I69.351 Hemiplegia and hemiparesis following cerebral infarction affecting right dominant side; F17.210 Nicotine dependence, cigarettes, uncomplicated; J45.909 Unspecified asthma, uncomplicated; G43.909 Migraine, unspecified, not intractable, without status migrainosus; F41.9 Anxiety disorder, unspecified; F32.9 Major depressive disorder, single episode, unspecified; L30.9 Dermatitis, unspecified; M24.521 Contracture, right elbow; G56.01 Carpal tunnel syndrome, right upper limb; G56.02 Carpal tunnel syndrome, left upper limb
CPT/HCPCS: 99284

== ENCOUNTER 2020-07-16 20:46 | Emergency (ER) | payer MEDICAID ==
[~2020-07-16] VITALS: Ht 160 cm; Wt 90.7 kg
[~2020-07-16 20:46] MED LIST changes: -CLIN300C11 PO; +CLIN300C12 PO; +KETO10TA PO
[2020-07-16] MEDS ORDERED: LACTATED RINGERS 1,000 ML IV ONE (21:00)
--- NOTE | 2020-07-16 21:13 | ED GI ---
General Chief Complaint: Abdominal/GI Problems Stated Complaint: ABD PAIN Nursing Triage Note: Pt to ED via EMS. EMS reports pt was found on floor at home by mother. Pt had vomited and was yelling for help. EMS reports pt has hx of seizures and pt appeared postictal. Pt c/o abdominal pain. Pt had bought of diarrhea on bed as EMS was moving pt from cot. 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 ) History of Present Illness Date Seen by Provider: Jul 16, 2020 Time Seen by Provider: 20:52 Initial Comments PT ARRIVES VIA EMS FROM HOME PER EMS, PT'S MOTHER HEARD PT YELL, AND FOUND HER ON THE FLOOR, HAD VOMITED AND WAS COMPLAINING OF ABDOMINAL PAIN. PT HAS ALSO BEEN INCONTINENT OF DIARRHEA STOOL ON ARRIVAL. ALL SYMPTOMS APPARENTLY CAME ON SUDDENLY JUST PRIOR TO ARRIVAL PT DENIES NAUSEA NOW DENIES INJURY FROM BEING ON FLOOR PT HAS NO COMPLAINTS NOW. NO ABDOMINAL PAIN AT THIS TIME. PT STATES HER ABDOMINAL PAIN WAS IN LOWER ABDOMEN/PELVIC/SUPRAPUBIC AREA AND SHE HAD NAUSEA AND VOMITED ONE TIME AND THEN HAD DIARRHEA AND NOW ALL SYMPTOMS ARE GONE AND FEELS COMPLETELY FINE HAS BEEN FINE ALL DAY. NO SICK CONTACTS OR SUSPICIOUS FOODS--STATES SHE ATE SUPPER AND MOM ATE SAME THING AND MOM IS NOT ILL. NO KNOWN FEVER NO COUGH OR RESPIRATORY SYMPTOMS NO CHEST PAIN NO SORE THROAT OR LOSS OF TASTE OR SMELL NO HEADACHE NO BODY ACHES NO KNOWN EXPOSURE TO COVID-19 PCP: [facility] [place] Allergies and Home Medications Allergies Coded Allergies: ibuprofen (Unverified Allergy, Unknown, STOMACH PAIN, VOMITING, RASH IN THROAT, 07/19/14) shellfish derived (Verified Allergy, Unknown, 10/19/12) Home Medications Acyclovir 30 Gm Oint, 30 GM TP Q4H Prescribed by: GENIA VENEGAS on 03/24/16 010 Amoxicillin 500 Mg Capsule, 1,000 MG PO BID Prescribed by: MARTHA MEYERS on 07/27/16 0419 Butalb/Acetaminophen/Caffeine 1 Each Capsule, 1 EACH PO Q6H PRN for HEADACHE Prescribed by: OTILIO CORTES on 02/17/16 1425 Cephalexin 500 Mg Capsule, 500 MG PO TID Prescribed by: SCOTTY MARQUES on 03/20/161408 Cephalexin 500 Mg Capsule, 500 MG PO TID Prescribed by: OTILIO CORTES on 07/15/161843 Clindamycin HCl 300 Mg Capsule, 300 MG PO QID Prescribed by: GENIA VENEGAS on 09/27/19240 Diclofenac Sodium 75 Mg Tablet.dr, 75 MG PO DAILY, (Reported) Hydrocodone Bit/Acetaminophen 1 Each Tablet, 1 EACH PO Q6H PRN for PAIN, (Reported) Hyoscyamine Sulfate 0.125 Mg Tab.subl, 0.25 MG SL Q4H Prescribed by: GENIA VENEGAS on 07/16/202156 Ketorolac Tromethamine 10 Mg Tablet, 10 MG PO Q6H Prescribed by: GENIA VENEGAS on 09/27/19240 L. Acidophilus/Pectin, [place] 1 Each Capsule, 2 EACH PO QID Prescribed by: GENIA VENEGAS on 07/16/202211 Lidocaine HCl 15 Ml Solution, 1-2 ML MM [id number] Prescribed by: GENIA VENEGAS on 09/27/19240 Methylprednisolone 4 Mg Tab.ds.pk, 4 MG PO UD Prescribed by: GENIA VENEGAS on 03/24/16106 Mupirocin 1 Gm Oin.pf.winston, 1 GM TP TID Prescribed by: GENIA VENEGAS on 03/24/16106 Mupirocin Calcium 15 Gm Cream..g., 15 GM TP BID Prescribed by: SCOTTY MARQUES on 03/20/161408 Nitrofurantoin Monohyd/M-Cryst 100 Mg Capsule, 1 TAB PO BID Prescribed by: GENIA VENEGAS on 07/16/202157 Ondansetron 4 Mg Tab.rapdis, 4 MG PO Q4H Prescribed by: GENIA VENEGAS on 07/16/202156 Sulfamethoxazole/Trimethoprim 1 Each Tablet, 1 EACH PO BID Prescribed by: SCOTTY MARQUES on 03/20/161408 Sulfamethoxazole/Trimethoprim 1 Each Tablet, 1 EACH PO BID Prescribed by: OTILIO CORTES on 07/15/161843 Sulfamethoxazole/Trimethoprim 1 Each Tablet, 1 EACH PO BID Prescribed by: MARTHA MEYERS on 01/28/17113 Tramadol HCl 50 Mg Tablet, 50 MG PO Q6H PRN for PAIN Prescribed by: MARTHA MEYERS on 07/27/16 0419 Valacyclovir HCl 1,000 Mg Tablet, 1,000 MG PO TID Prescribed by: GENIA VENEGAS on 03/24/16 0107 Patient Home Medication List Home Medication List Reviewed: Yes Review of Systems Review of Systems Constitutional: no symptoms reported; No fever EENTM: No Symptoms Reported Respiratory: No Symptoms Reported Cardiovascular: No Symptoms Reported Gastrointestinal: See HPI, Abdominal Pain, Diarrhea, Nausea, Vomiting Genitourinary: No Symptoms Reported Musculoskeletal: no symptoms reported Skin: no symptoms reported Psychiatric/Neurological: Denies Headache; Pre-Existing Deficit (RIGHT SIDE WEAKNESS WITH CONTRACTURES OF RIGHT ARM, AND EXPRESSIVE APHASIA) Endocrine: No Symptoms Reported Hematologic/Lymphatic: No Symptoms Reported Past Qfqspvl-Hrxjlu-Bhvyvx Hx Past Med/Social Hx: Reviewed and Corrections made Patient Social History Alcohol Use: Denies Use Smoking Status: Current Everyday Smoker Type Used: Cigarettes 2nd Hand Smoke Exposure: Yes Recent Infectious Disease Expo: No Recent Hopitalizations: No Substance type: Amphetamines, Methamphetamine, Marijuana, Other (PT DENIES USE, BUT UDS POSITIVE 07/16/20) Immunizations Up To Date Tetanus Booster (TDap): Less than 5yrs Date of Influenza Vaccine: Mar 08, 2015 Seasonal Allergies Seasonal Allergies: Yes Past Medical History Surgeries: No Respiratory: Yes Asthma Cardiac: No Neurological: Yes (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 Cancer Physical Exam Vital Signs Vital Signs - First Documented 07/16/20 20:52 Temp 36.3 Pulse 54 Resp 20 B/P (MAP) 135/81 (99) Pulse Ox 100 O2 Delivery Room Air Capillary Refill : Less Than 3 Seconds Height/Weight/BMI Height: 5'3" Weight: 232lbs. oz. 105.084440zd; 35.00 BMI Method:Stated General Appearance: WD/WN, no apparent distress, other (INCONTNENT OF DIARRHEA STOOL ON ARRIVAL. DOES NOT APPEAR TO BE IN ANY DISCOMFORT OR DISTRESS. PT ABLE TO STAND AND TRANSFER TO BEDSIDE COMMODE AND BACK INTO BED ON HER OWN. PLAYING GAMES ON HER PHONE THROUGHOUT EXAM-REFUSES TO PUT DOWN PHONE OR STOP PLAYING GAMES DURING EXAM. ) HEENT: other (POOR DENTITION. ORAL MUCOSA MOIST) Respiratory: normal breath sounds, no respiratory distress, no accessory muscle use Cardiovascular: regular rate, rhythm, no murmur Gastrointestinal: normal bowel sounds, non tender, soft, no organomegaly Extremities: no pedal edema, normal capillary refill, other (FLEXION CONTRACTURES OF RIGHT ARM AND HAND. 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 ), other (CHRONIC RIGHT SIDE WEAKNESS AND FLEXION CONTRACTURES OF RIGHT ARM AND HAND) Skin: normal color (PT IS BLACK), warm/dry, tattoos/piercings (MULTIPLE TATTOOS) Progress/Results/Core Measures Results/Orders Lab Results Laboratory Tests Test 07/16/20 21:12 07/16/20 21:15 07/16/20 21:24 Range/Units Coronavirus 2019 ([facility]) Negative Negative Urine Color YELLOW Urine Clarity CLEAR Urine pH 6.0 5-9 Urine Specific [place] >=1.030 1.016-1.022 Urine Protein TRACE H NEGATIVE Urine Glucose (UA) NEGATIVE NEGATIVE Urine Ketones NEGATIVE NEGATIVE Urine Nitrite NEGATIVE NEGATIVE Urine Bilirubin 1+ H NEGATIVE Urine Urobilinogen 2.0 < = 1.0 MG/DL Urine Leukocyte Esterase NEGATIVE NEGATIVE Urine RBC (Auto) TRACE-I NEGATIVE Urine RBC NONE /HPF Urine WBC 2-5 /HPF Urine Squamous Epithelial Cells 25-50 H /HPF Urine Crystals NONE /LPF Urine Bacteria LARGE H /HPF Urine Casts NONE /LPF Urine Mucus NEGATIVE /LPF Urine Yeast FEW H /HPF Urine Culture Indicated YES Urine Opiates Screen NEGATIVE NEGATIVE Urine Oxycodone Screen NEGATIVE NEGATIVE Urine Methadone Screen NEGATIVE NEGATIVE Urine Propoxyphene Screen NEGATIVE NEGATIVE Urine Barbiturates Screen NEGATIVE NEGATIVE Ur Tricyclic Antidepressants Screen NEGATIVE NEGATIVE Urine Phencyclidine Screen NEGATIVE NEGATIVE Urine Amphetamines Screen POSITIVE H NEGATIVE Urine Methamphetamines Screen POSITIVE H NEGATIVE Urine Benzodiazepines Screen NEGATIVE NEGATIVE Urine Cocaine Screen NEGATIVE NEGATIVE Urine Cannabinoids Screen POSITIVE H NEGATIVE White Blood Count 9.9 4.3-11.0 10^3/uL Red Blood Count 3.99 3.80-5.11 10^6/uL Hemoglobin 11.0 L 11.5-16.0 g/dL Hematocrit 35 35-52 % Mean Corpuscular Volume 88 80-99 fL Mean Corpuscular Hemoglobin 28 25-34 pg Mean Corpuscular Hemoglobin Concent 31 L 32-36 g/dL Red Cell Distribution Width 13.5 10.0-14.5 % Platelet Count 322 130-400 10^3/uL Mean Platelet Volume 10.6 9.0-12.2 fL Immature Granulocyte % (Auto) 0 % Neutrophils (%) (Auto) 75 42-75 % Lymphocytes (%) (Auto) 19 12-44 % Monocytes (%) (Auto) 4 0-12 % Eosinophils (%) (Auto) 1 0-10 % Basophils (%) (Auto) 0 0-10 % Neutrophils # (Auto) 7.4 1.8-7.8 10^3/uL Lymphocytes # (Auto) 1.8 1.0-4.0 10^3/uL Monocytes # (Auto) 0.4 0.0-1.0 10^3/uL Eosinophils # (Auto) 0.1 0.0-0.3 10^3/uL Basophils # (Auto) 0.0 0.0-0.1 10^3/uL Immature Granulocyte # (Auto) 0.0 0.0-0.1 10^3/uL Prothrombin Time 13.4 12.2-14.7 SEC INR Comment 1.0 0.8-1.4 Activated Partial Thromboplast Time 31 24-35 SEC Sodium Level 139 135-145 MMOL/L Potassium Level 3.3 L 3.6-5.0 MMOL/L Chloride Level 105 98-107 MMOL/L Carbon Dioxide Level 22 21-32 MMOL/L Anion Gap 12 5-14 MMOL/L Blood Urea Nitrogen 8 7-18 MG/DL Creatinine 0.80 0.60-1.30 MG/DL Estimat Glomerular Filtration Rate > 60 BUN/Creatinine Ratio 10 Glucose Level 102 70-105 MG/DL Calcium Level 9.2 8.5-10.1 MG/DL Corrected Calcium 9.3 8.5-10.1 MG/DL Magnesium Level 3.0 H 1.6-2.4 MG/DL Total Bilirubin 0.2 0.1-1.0 MG/DL Aspartate Amino Transf (AST/SGOT) 10 5-34 U/L Alanine Aminotransferase (ALT/SGPT) 8 0-55 U/L Alkaline Phosphatase 95 40-136 U/L Total Protein 8.0 6.4-8.2 GM/DL Albumin 3.9 3.2-4.5 GM/DL Amylase Level 77 25-125 U/L Lipase 19 8-78 U/L Serum Test, Qualitative NEGATIVE NEGATIVE Serum Alcohol < 10 <10 MG/DL My Orders Orders - GENIA VENEGAS DO Ed Iv/Invasive Line Start (07/16/20 20:53) Monitor-Rhythm Ecg Trace Only (07/16/20 20:53) Alcohol (07/16/20 20:53) Amylase (07/16/20 20:53) Cbc With Automated Diff (07/16/20 20:53) Comprehensive Metabolic Panel (07/16/20 20:53) Drug Screen Stat (Urine) (07/16/20 20:53) Hcg,Qualitative Serum (07/16/20 20:53) Lipase (07/16/20 20:53) Magnesium (07/16/20 20:53) Protime With Inr (07/16/20 20:53) Partial Thromboplastin Time (07/16/20 20:53) Ua Culture If Indicated (07/16/20 20:53) Ed Iv/Invasive Line Start (07/16/20 20:53) Lactated Ringers (Lr 1000 Ml Iv Solution (07/16/20 21:00) Covid 19 Inhouse Test (07/16/20 20:53) Straight Cath For Spec.-Adult (07/16/20 20:55) Ct Abdomen/Pelvis Wo (07/16/20 21:26) Chest 1 View, Ap/Pa Only (07/16/20 21:26) Urine Culture (07/16/20 21:15) Rx-Hyoscyamine Tab (Rx-Levsin Sl) (07/16/20 22:13) Rx-Ondansetron Po (Rx-Zofran Po) (07/16/20 22:13) Medications Given in ED Current Medications Medications Dose Ordered Sig/Mariaelena Route Start Time Stop Time Status Last Admin Dose Admin Lactated Ringer's 1,000 ml @ 0 mls/hr Q0M ONCE IV 07/16/20 21:00 07/16/20 21:01 DC 07/16/20 21:05 1,000 MLS/HR Vital Signs/I&O 07/16/20 20:52 Temp 36.3 Pulse 54 Resp 20 B/P (MAP) 135/81 (99) Pulse Ox 100 O2 Delivery Room Air 2 Blood Pressure Mean: 99 Progress Progress Note : Progress Note COVID-19 TESTING DONE. GIVEN IV FLUIDS--PT DENIES PAIN OR NAUSEA ON ARRIVAL NO SYMPTOMS FOR ENTIRE REMAINDER OF ER STAY, AND NO ABDOMINAL PAIN OR TENDERNESS AT ANY TIME. Diagnostic Imaging Comments CXR--NO ACUTE PROCESS, PER RADIOLOGIST REPORT AT 2210 CT ABDOMEN/PELVIS--PER RADIOLOGIST REPORT AT 2210 FINDINGS: The lung bases appear clear. Abdominal viscera limited due to lack of contrast. No gross acute of abnormality appreciated within the liver or spleen. The pancreas and adrenal glands as well as gallbladder are grossly unremarkable. No acute process is seen in either kidney. There is mild wall thickening questioned along the descending colon which could be due to incomplete distention versus colitis, correlate with symptoms. There is no obstructive process. The appendix is unremarkable. No free air or fluid seen in the abdomen or the pelvis. IMPRESSION: 1. Findings of possible colitis, correlate with patient's symptoms. Otherwise, unremarkable limited evaluation without contrast. Reviewed: Reviewed by Me Departure Impression Primary Impression: N/V/D/ABD CRAMPING RESOLVED Additional Impressions: Illicit drug use Urinary tract infection Disposition: HOME, SELF-CARE Condition: Improved Departure-Patient Inst. Referrals: [facility] (PCP/Family) Primary Care Physician Patient Instructions: Drug Abuse and Drug Addiction (DC), [id number], Marijuana Use and Addiction (DC), Methamphetamine, Urinary Tract Infection, Adult (DC) Add. Discharge Instructions: NO DRUGS!!!! CLEAR LIQUIDS--WATER, BROTH, JELLO, GATORADE TOMORROW IF YOU ARE BETTER, ADD BRATS DIET TO CLEAR LIQUIDS--BANANAS, RICE, APPLESAUCE, TOAST, SALTINES FOLLOW UP WITH YOUR DR IN 2-3 DAYS IF NO BETTER All discharge instructions reviewed with patient and/or family. Voiced understanding. Scripts L. Acidophilus/Pectin, [place] (Acidophilus Capsule) 1 Each Capsule 2 EACH PO QID, #40 CAP Prov: GENIA VENEGAS DO 07/16/20 Nitrofurantoin Monohyd/M-Cryst (Macrobid 100 mg Capsule) 100 Mg Capsule 1 TAB PO BID, #20 CAP Prov: GENIA VENEGAS DO 07/16/20 Hyoscyamine Sulfate (Levsin-Sl) 0.125 Mg Tab.subl 0.25 MG SL Q4H, #10 TAB Prov: GENIA VENEGAS DO 07/16/20 Ondansetron (Ondansetron Odt) 4 Mg Tab.rapdis 4 MG PO Q4H for Nausea/Vomiting, #10 TAB Prov: GENIA VENEGAS DO 07/16/20 GENIA VENEGAS DO Jul 16, 2020 21:13
[2020-07-16 21:24] LABS: BILIRUBIN,URINE 1+ (NEGATIVE); CLARITY,URINE CLEAR; COLOR,URINE YELLOW; GLUCOSE, URINE (UA) NEGATIVE (NEGATIVE); KETONES,URINE NEGATIVE (NEGATIVE); LEUKOCYTE ESTERASE ,URINE NEGATIVE (NEGATIVE); NITRITE,URINE NEGATIVE (NEGATIVE); PROTEIN,URINE TRACE (NEGATIVE)
[2020-07-16 21:34] LABS: BASOPHILS % (AUTO) 0 % (0-10); EOSINOPHILS # (AUTO) 0.1 10^3/uL (0.0-0.3); EOSINOPHILS % (AUTO) 1 % (0-10); HEMATOCRIT 35 % (35-52); LYMPHOCYTES # (AUTO) 1.8 10^3/uL (1.0-4.0); LYMPHOCYTES % (AUTO) 19 % (12-44); MEAN CORPUSCULAR HEMOGLOBIN 28 pg (25-34); MEAN CORPUSCULAR HGB CONC 31 g/dL (32-36); MEAN CORPUSCULAR VOLUME 88 fL (80-99); MEAN PLATELET VOLUME 10.6 fL (9.0-12.2); MONOCYTES # (AUTO) 0.4 10^3/uL (0.0-1.0); MONOCYTES % (AUTO) 4 % (0-12); NEUTROPHILS # (AUTO) 7.4 10^3/uL (1.8-7.8); NEUTROPHILS % (AUTO) 75 % (42-75); PLATELET COUNT 322 10^3/uL (130-400); WHITE BLOOD COUNT 9.9 10^3/uL (4.3-11.0)
[2020-07-16 21:37] LABS: BACTERIA,URINE LARGE /HPF
[2020-07-16 21:38] LABS: SQUAMOUS EPITHELIAL CELL,UR 25-50 /HPF; YEAST,URINE FEW /HPF
[2020-07-16 21:43] LABS: AMPHETAMINE SCREEN, URINE POSITIVE (NEGATIVE); BARBITURATE SCREEN URINE NEGATIVE (NEGATIVE); BENZODIAZEPINES SCREEN URINE NEGATIVE (NEGATIVE); CANNABINOID SCREEN, URINE POSITIVE (NEGATIVE); COCAINE SCREEN URINE NEGATIVE (NEGATIVE); METHADONE STAT NEGATIVE (NEGATIVE); METHAMPHETAMINE SCREEN URINE S POSITIVE (NEGATIVE); OPIATE SCREEN URINE NEGATIVE (NEGATIVE); OXYCODONE STAT NEGATIVE (NEGATIVE); PROPOXYPHENE STAT NEGATIVE (NEGATIVE); TRICYCLIC ANTIDEPRESSANTS SCRE NEGATIVE (NEGATIVE)
[2020-07-16 21:46] LABS: PROTHROMBIN TIME PATIENT 13.4 SEC (12.2-14.7)
[2020-07-16 21:56] LABS: ALANINE AMINOTRANSFERASE 8 U/L (0-55); ALBUMIN 3.9 GM/DL (3.2-4.5); ALKALINE PHOSPHATASE 95 U/L (40-136); AMYLASE 77 U/L (25-125); BILIRUBIN,TOTAL 0.2 MG/DL (0.1-1.0); BUN/CREATININE RATIO 10; CALCIUM 9.2 MG/DL (8.5-10.1); CARBON DIOXIDE 22 MMOL/L (21-32); CHLORIDE 105 MMOL/L (98-107); GFR ESTIMATED > 60; GLUCOSE 102 MG/DL (70-105); LIPASE 19 U/L (8-78); POTASSIUM 3.3 MMOL/L (3.6-5.0); SODIUM 139 MMOL/L (135-145)
[2020-07-16] MEDS ORDERED: HYOS0.1283 SL (21:57)
[2020-07-16] MEDS ORDERED: ONDA4TAB11 PO (21:57)
[2020-07-16] MEDS ORDERED: NITR-65 PO (21:58)
--- NOTE | 2020-07-16 22:03 | Diagnostic Imaging Report ---
INDICATION: Cough, history of seizures. EXAMINATION: Chest 07/16/2020 FINDINGS: Single view chest The cardiomediastinal silhouette is unremarkable. The pulmonary vasculature is within normal limits. The lungs and pleural spaces are clear. IMPRESSION: No evidence of an acute cardiopulmonary process. Dictated by: Dictated on workstation # [id number]
--- NOTE | 2020-07-16 22:05 | Diagnostic Imaging Report ---
PROCEDURE: CT abdomen and pelvis without contrast, 07/16/2020. TECHNIQUE: Multiple contiguous axial images were obtained through the abdomen and pelvis without the use of intravenous contrast. Auto Exposure Controls were utilized during the CT exam to meet ALARA standards for radiation dose reduction. INDICATION: Abdominal pain. Nausea, vomiting and diarrhea. FINDINGS: The lung bases appear clear. Abdominal viscera limited due to lack of contrast. No gross acute of abnormality appreciated within the liver or spleen. The pancreas and adrenal glands as well as gallbladder are grossly unremarkable. No acute process is seen in either kidney. There is mild wall thickening questioned along the descending colon which could be due to incomplete distention versus colitis, correlate with symptoms. There is no obstructive process. The appendix is unremarkable. No free air or fluid seen in the abdomen or the pelvis. IMPRESSION: 1. Findings of possible colitis, correlate with patient's symptoms. Otherwise, unremarkable limited evaluation without contrast. Dictated by: Dictated on workstation # [id number]
[2020-07-16] MEDS ORDERED: L. A1CAP11 PO (22:12)
[2020-07-16] MEDS ORDERED: RX-HYOSCYAMINE 0.125 MG SL (LEVSIN) PPK#6 SL STA (22:13)
[2020-07-16] MEDS ORDERED: RX-ONDANSETRON 4 MG ODT (ZOFRAN) PPK #4 PO STA (22:13)
--- NOTE | 2020-07-16 22:30 | NUR ---
PT MOTHER CONTACTED ABOUT CONDITION AND TO BE DISCHARGED. MOTHER STATES SHE LIVES IN [place] WHICH IS APPROX 20 MIN AWAY AND WILL TAKE A LITTLE LONGER D/T INCLEMENT WEATHER.
[2020-07-17 00:28] VITALS: BP 133/108
== END 2020-07-17 00:28 | disposition home or self-care (01) ==
LOC: EDUNIT# 20:46 → ER 20:48
DX: N39.0 Urinary tract infection, site not specified (principal); F19.90 Other psychoactive substance use, unspecified, uncomplicated; I69.320 Aphasia following cerebral infarction; I69.351 Hemiplegia and hemiparesis following cerebral infarction affecting right dominant side; M62.421 Contracture of muscle, right upper arm; G43.909 Migraine, unspecified, not intractable, without status migrainosus; F17.210 Nicotine dependence, cigarettes, uncomplicated; Z88.6 Allergy status to analgesic agent; Z79.52 Long term (current) use of systemic steroids
CPT/HCPCS: 36415; 51701; 71045; 74176; 80053; 80306; 80320; 81000; 82150; 83690; 83735; 84703; 85025; 85610; 85730; 87088; 87635; 93041

== ENCOUNTER 2020-10-22 19:55 | Emergency (ER) | payer MEDICAID ==
[~2020-10-22] VITALS: Ht 160 cm; Wt 96.0 kg
[~2020-10-22 19:55] MED LIST changes: +HYOS0.1283 SL; +L. A1CAP11 PO; +NITR-65 PO; +ONDA4TAB11 PO
[2020-10-22 20:00] VITALS: BP 109/91
--- NOTE | 2020-10-22 20:47 | ED Integumentary General ---
General Chief Complaint: Skin/Wound Problems Stated Complaint: SORE UNDER L ARM Nursing Triage Note: TWO WEEKS AGO FIRST NOTICED BY MOTHER, TAKEN TO [facility] AND TREATED WITH ANTIBIOTIC. SWELLING REMAINS AND INCREASED PAIN. PATIENT IS M.R. MOTHER IS AT BEDSIDE. Source: patient, family Exam Limitations: physical impairment History of Present Illness Date Seen by Provider: October 22, 2020 Time Seen by Provider: 20:15 Initial Comments Patient is a 35-year-old female with a history of mental challenge who presents to the emergency department today with a chief complaint of abscess under her left arm. Mom states its been there for about a week. She has been on cephalexin antibiotics. They attempted to go to [facility] clinic today but they were closed. She complains of increased pain. No fevers. She has discomfort when she moves her left arm. All other review of systems reviewed and negative except as stated above. Timing/Duration: week, getting worse Severity: moderate Location: extremities Possible Cause: no cause identified Associated Symptoms: denies symptoms Allergies and Home Medications Allergies Coded Allergies: ibuprofen (Unverified Allergy, Unknown, STOMACH PAIN, VOMITING, RASH IN THROAT, 07/19/14) shellfish derived (Verified Allergy, Unknown, 10/19/12) Home Medications Acyclovir 30 Gm Oint, 30 GM TP Q4H Prescribed by: GENIA VENEGAS on 03/24/16 0107 Amoxicillin 500 Mg Capsule, 1,000 MG PO BID Prescribed by: MARTHA MEYERS on 07/27/16 0419 Butalb/Acetaminophen/Caffeine 1 Each Capsule, 1 EACH PO Q6H PRN for HEADACHE Prescribed by: OTILIO CORTES on 02/17/16 1425 Cephalexin 500 Mg Capsule, 500 MG PO TID Prescribed by: SCOTTY MARQUES on 03/20/16 1409 Cephalexin 500 Mg Capsule, 500 MG PO TID Prescribed by: OTILIO CORTES on 07/15/16 1844 Clindamycin HCl 300 Mg Capsule, 300 MG PO QID Prescribed by: GENIA VENEGAS on 09/27/19 0241 Diclofenac Sodium 75 Mg Tablet.dr, 75 MG PO DAILY, (Reported) Hydrocodone Bit/Acetaminophen 1 Each Tablet, 1 EACH PO Q6H PRN for PAIN, (Reported) Hyoscyamine Sulfate 0.125 Mg Tab.subl, 0.25 MG SL Q4H Prescribed by: GENIA VENEGAS on 07/16/202156 Ketorolac Tromethamine 10 Mg Tablet, 10 MG PO Q6H Prescribed by: GENIA VENEGAS on 09/27/19 024 L. Acidophilus/Pectin, [place] 1 Each Capsule, 2 EACH PO QID Prescribed by: GENIA VENEGAS on 07/16/202211 Lidocaine HCl 15 Ml Solution, 1-2 ML MM [id number] Prescribed by: GENIA VENEGAS on 09/27/19 024 Methylprednisolone 4 Mg Tab.ds.pk, 4 MG PO UD Prescribed by: GENIA VENEGAS on 03/24/16106 Mupirocin 1 Gm Oin.pf.winston, 1 GM TP TID Prescribed by: GENIA VENEGAS on 03/24/16106 Mupirocin Calcium 15 Gm Cream..g., 15 GM TP BID Prescribed by: SCOTTY MARQUES on 03/20/161408 Nitrofurantoin Monohyd/M-Cryst 100 Mg Capsule, 1 TAB PO BID Prescribed by: GENIA VENEGAS on 07/16/202157 Ondansetron 4 Mg Tab.rapdis, 4 MG PO Q4H Prescribed by: GENIA VENEGAS on 07/16/202156 Sulfamethoxazole/Trimethoprim 1 Each Tablet, 1 EACH PO BID Prescribed by: SCOTTY MARQUES on 03/20/16 140 Sulfamethoxazole/Trimethoprim 1 Each Tablet, 1 EACH PO BID Prescribed by: OTILIO CORTES on 07/15/16 1844 Sulfamethoxazole/Trimethoprim 1 Each Tablet, 1 EACH PO BID Prescribed by: MARTHA MEYERS on 01/28/17 0114 Tramadol HCl 50 Mg Tablet, 50 MG PO Q6H PRN for PAIN Prescribed by: MARTHA MEYERS on 07/27/16 0419 Valacyclovir HCl 1,000 Mg Tablet, 1,000 MG PO TID Prescribed by: GENIA VENEGAS on 03/24/16106 Patient Home Medication List Home Medication List Reviewed: Yes Review of Systems Review of Systems Constitutional: see HPI EENTM: no symptoms reported Respiratory: no symptoms reported Cardiovascular: no symptoms reported Gastrointestinal: no symptoms reported Genitourinary: no symptoms reported Musculoskeletal: no symptoms reported Skin: lumps (Left axilla) All Other Systems Reviewed Negative Unless Noted: Yes Past Prqpvds-Igftnh-Vosofy Hx Patient Social History Alcohol Use: Rarely Uses Alcohol Beverage of Choice: Beer Type Used: Cigarettes 2nd Hand Smoke Exposure: Yes Recent Infectious Disease Expo: No Recent Hopitalizations: No Immunizations Up To Date Tetanus Booster (TDap): Less than 5yrs PED Vaccines UTD: Yes Date of Influenza Vaccine: Mar 08, 2015 Seasonal Allergies Seasonal Allergies: Yes Past Medical History Surgeries: No Respiratory: Yes Asthma Cardiac: No Neurological: Yes (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 Cancer Physical Exam Vital Signs Vital Signs - First Documented 10/22/20 20:00 Temp 36.6 Pulse 98 Resp 20 B/P (MAP) 109/91 (97) Pulse Ox 95 O2 Delivery Room Air Capillary Refill : Less Than 3 Seconds General Appearance: WD/WN, no apparent distress Cardiovascular: regular rate, rhythm Respiratory: no respiratory distress, no accessory muscle use Extremities: normal range of motion, normal inspection Neurologic/Psychiatric: alert, normal mood/affect, oriented x 3 Skin: normal color, warm/dry, other (Large axillary abscess on the left. Approximately 5 cm x 3 cm in diameter pinhole drainage is noted from the most lateral aspect, whitish-yellow purulent looking material.) Skin Problem Character: drainage Procedures/Interventions I&D : Site: Left axilla Blade Size: 11 I & D Procedure: betadine prep, Wound Packing Packing/Drain: Plain Packing 1/2 Progress Patient tolerated the procedure well. Local anesthesia with approximately 2-1/2 cc of 1% plain lidocaine. Copious amounts of pus was expressed from the abscess. It was irrigated with approximately 150 to 200 cc of normal saline. Half-inch gauze packing was placed in the wound. Progress/Results/Core Measures Results/Orders Vital Signs/I&O 10/22/20 20:00 Temp 36.6 Pulse 98 Resp 20 B/P (MAP) 109/91 (97) Pulse Ox 95 O2 Delivery Room Air Blood Pressure Mean: 97 Departure Impression Primary Impression: Axillary abscess Disposition: 01 HOME, SELF-CARE Condition: Stable Departure-Patient Inst. Decision time for Depature: 20:45 Referrals: [facility] (PCP/Family) Primary Care Physician Patient Instructions: Abscess Incision and Drainage Add. Discharge Instructions: Keep the abscessed area clean dry and covered. Try to keep the packing in place. Follow-up with [facility] on Thursday for packing removal and replacement. If you are unable to visit [facility] please come back to the emergency room for packing removal and replacement. Continue your antibiotics. I have given you a prescription for hydrocodone for a few days. Please take this medication once every 6 hours as needed for moderate to severe pain. You can alternate with [id number] Tylenol. Come back to the emergency room sooner for any worsening pain, not controlled by medications, fever or other emergent concerning symptoms. Scripts Cephalexin (Cephalexin) 500 Mg Tablet 500 MG PO TID, #15 TAB Prov: WHITNEY WEEKS MD 10/22/20 Hydrocodone/Acetaminophen (Hydrocodone-Acetamin 5-325 mg) 1 Each Tablet 1 TAB PO Q6H PRN for PAIN-MODERATE (5-7), #12 TAB Prov: WHITNEY WEEKS MD 10/22/20 WHITNEY WEEKS MD October 22, 2020 20:47
[2020-10-22] MEDS ORDERED: ACHD5005 PO (20:49)
[2020-10-22] MEDS ORDERED: CEPH500T PO (20:49)
[2020-10-22] MEDS ORDERED: HYDROcodone/APAP 5 MG/325 MG (LORTAB) TAB PO PRN (21:00)
== END 2020-10-22 21:00 | disposition home or self-care (01) ==
LOC: EDUNIT# 19:55 → ER 19:57
DX: L02.412 Cutaneous abscess of left axilla (principal); J45.909 Unspecified asthma, uncomplicated; Z77.22 Contact with and (suspected) exposure to environmental tobacco smoke (acute) (chronic); Z79.52 Long term (current) use of systemic steroids; Z88.6 Allergy status to analgesic agent
CPT/HCPCS: 87070; 87077; 87205; 99283

== ENCOUNTER 2021-08-07 17:01 | Emergency (ER) | payer MEDICAID ==
[~2021-08-07] VITALS: Ht 160 cm; Wt 81.8 kg
[2021-08-07 17:01] VITALS: BP 140/113
[~2021-08-07 17:01] MED LIST changes: +CEPH500T PO; +CLIN-144 PO; -CLIN300C12 PO; -SULF1TAB35 PO
[2021-08-07] MEDS ORDERED: KETOROLAC 30 MG/ML VIAL IVP ONE (17:15)
--- NOTE | 2021-08-07 17:15 | ED Abdominal Pain ---
General Stated Complaint: ABDOMINAL PAIN Source of Information: Patient Exam Limitations: No Limitations History of Present Illness Date Seen by Provider: Aug 07, 2021 Time Seen by Provider: 17:11 Initial Comments Patient is a 36-year-old female presents ED with mid upper abdominal pain. She reports pain over the past 2 days intermittent described as sharp without radiation. Denies nausea vomiting, diarrhea. No history of previous abdominal surgery. Denies any urinary symptoms. Not currently on her menstrual cycle. No chest pain, shortness of breath. She reports mild headache with a history of similar type head pain. She took ibuprofen this morning without much improvement. No visual changes. Chronic unilateral right-sided weakness secondary to previous stroke. Not currently on blood thinners. Allergies and Home Medications Allergies Coded Allergies: shellfish derived (Verified Allergy, Unknown, 10/19/12) Patient Home Medication List Home Medication List Reviewed: Yes Acyclovir (Zovirax) 30 Gm Oint, 30 GM TP Q4H Prescribed by: GENIA VENEGAS on 03/24/16 0107 Amoxicillin (Amoxicillin) 500 Mg Capsule, 1,000 MG PO BID Prescribed by: MARTHA MEYERS on 07/27/16 0419 Butalb/Acetaminophen/Caffeine (Fioricet 50-300-40 mg Capsule) 1 Each Capsule, 1 EACH PO Q6H PRN for HEADACHE Prescribed by: OTILIO CORTES on 02/17/16 1425 Cephalexin (Cephalexin) 500 Mg Capsule, 500 MG PO TID Prescribed by: SCOTTY MARQUES on 03/20/16 1409 Cephalexin (Cephalexin) 500 Mg Capsule, 500 MG PO TID Prescribed by: OTILIO CORTES on 07/15/16 1844 Cephalexin (Cephalexin) 500 Mg Tablet, 500 MG PO TID Prescribed by: WHITNEY WEEKS on 10/22/20 2049 Clindamycin HCl (Clindamycin HCl) 300 Mg Capsule, 300 MG PO QID Prescribed by: GENIA VENEGAS on 09/27/19 0241 Diclofenac Sodium (Diclofenac Sodium) 75 Mg Tablet.dr, 75 MG PO DAILY, (Reported) Entered as Reported by: FRANNIE SESAY on 02/17/16 1330 Hydrocodone Bit/Acetaminophen (HYDROcodone/APAP 10/325 TABLET) 1 Each Tablet, 1 EACH PO Q6H PRN for PAIN, (Reported) Entered as Reported by: FRANNIE SESAY on 02/17/16 1330 Hydrocodone/Acetaminophen (Hydrocodone-Acetamin 5-325 mg) 1 Each Tablet, 1 TAB PO Q6H PRN for PAIN-MODERATE (5-7) Prescribed by: WHITNEY WEEKS on 10/22/202048 Hyoscyamine Sulfate (Levsin-Sl) 0.125 Mg Tab.subl, 0.25 MG SL Q4H Prescribed by: GENIA VENEGAS on 07/16/202156 Ketorolac Tromethamine (Ketorolac Tromethamine) 10 Mg Tablet, 10 MG PO Q6H Prescribed by: GENIA VENEGAS on 09/27/19 024 L. Acidophilus/Pectin, [place] (Acidophilus Capsule) 1 Each Capsule, 2 EACH PO QID Prescribed by: GENIA VENEGAS on 07/16/202211 Lidocaine HCl (Lidocaine HCl Viscous) 15 Ml Solution, 1-2 ML MM [id number] Prescribed by: GENIA VENEGAS on 09/27/19240 Methylprednisolone (Medrol) 4 Mg Tab.ds.pk, 4 MG PO UD Prescribed by: GENIA VENEGAS on 03/24/16106 Mupirocin (Mupirocin) 1 Gm Oin.pf.winston, 1 GM TP TID Prescribed by: GENIA VENEGAS on 03/24/16106 Mupirocin Calcium (Mupirocin) 15 Gm Cream..g., 15 GM TP BID Prescribed by: SCOTTY MARQUES on 03/20/16 140 Nitrofurantoin Monohyd/M-Cryst (Macrobid 100 mg Capsule) 100 Mg Capsule, 1 TAB PO BID Prescribed by: GENIA VENEGAS on 07/16/202157 Ondansetron (Ondansetron Odt) 4 Mg Tab.rapdis, 4 MG PO Q4H Prescribed by: GENIA VENEGAS on 07/16/202156 Sulfamethoxazole/Trimethoprim (Bactrim Ds Tablet) 1 Each Tablet, 1 EACH PO BID Prescribed by: SCOTTY MARQUES on 03/20/16 140 Sulfamethoxazole/Trimethoprim (Bactrim Ds Tablet) 1 Each Tablet, 1 EACH PO BID Prescribed by: OTILIO CORTES on 07/15/16 184 Sulfamethoxazole/Trimethoprim (Bactrim Ds Tablet) 1 Each Tablet, 1 EACH PO BID Prescribed by: MARTHA MEYERS on 01/28/17 0114 Tramadol HCl (Ultram) 50 Mg Tablet, 50 MG PO Q6H PRN for PAIN Prescribed by: MARTHA MEYERS on 07/27/16 0419 Valacyclovir HCl (Valtrex) 1,000 Mg Tablet, 1,000 MG PO TID Prescribed by: GENIA VENEGAS on 03/24/16 0107 Review of Systems Review of Systems Constitutional: No see HPI, No chills, No diaphoresis, No fever, No malaise, No weakness EENTM: No Blurred Vision, No Double Vision, No Ear Pain, No Mouth Pain, No Mouth Swelling Respiratory: Denies Cough, Denies Orthopnea, Denies SOA With Exertion, Denies SOA at Rest Cardiovascular: Denies Chest Pain, Denies Edema Gastrointestinal: Denies Abdomen Distended; Abdominal Pain; Denies Blood Streaked Stools, Denies Diarrhea, Denies Nausea, Denies Vomiting Genitourinary: Denies Burning, Denies Discharge, Denies Drainage, Denies Frequency, Denies Flank Pain Musculoskeletal: No back pain, No joint pain Skin: No change in color, No change in hair/nails All Other Systems Reviewed Negative Unless Noted: Yes Past Vbjzqac-Aptclo-Bznhhc Hx Immunizations Up To Date Tetanus Booster (TDap): Less than 5yrs PED Vaccines UTD: Yes Seasonal Allergies Seasonal Allergies: Yes Past Medical History Surgeries: No Respiratory: Yes Asthma Cardiac: No Neurological: Yes (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 Cancer Physical Exam Vital Signs Vital Signs - First Documented 08/07/21 17:01 Temp 36.8 Pulse 86 Resp 18 B/P (MAP) 140/113 (122) Pulse Ox 99 O2 Delivery Room Air Capillary Refill : Height/Weight/BMI Height: 5'3" Weight: 232lbs. oz. 105.903050nc; 37.00 BMI Method:Stated General Appearance: WD/WN, no apparent distress HEENT: PERRL/EOMI, normal ENT inspection, TMs normal, pharynx normal Neck: non-tender, full range of motion, supple Respiratory: chest non-tender, lungs clear, normal breath sounds, no respiratory distress, no accessory muscle use Cardiovascular: regular rate, rhythm, no edema, no gallop, no JVD Gastrointestinal: normal bowel sounds, soft, no organomegaly, no pulsatile mass, tenderness (Mid upper abdominal tenderness ) Extremities: normal range of motion, non-tender, normal inspection, no pedal edema, no calf tenderness Back: normal inspection, no CVA tenderness Progress/Results/Core Measures Results/Orders Lab Results Laboratory Tests Test 08/07/21 17:12 Range/Units White Blood Count 6.5 4.3-11.0 10^3/uL Red Blood Count 3.82 3.80-5.11 10^6/uL Hemoglobin 10.7 L 11.5-16.0 g/dL Hematocrit 33 L 35-52 % Mean Corpuscular Volume 87 80-99 fL Mean Corpuscular Hemoglobin 28 25-34 pg Mean Corpuscular Hemoglobin Concent 32 32-36 g/dL Red Cell Distribution Width 14.2 10.0-14.5 % Platelet Count 309 130-400 10^3/uL Mean Platelet Volume 10.3 9.0-12.2 fL Immature Granulocyte % (Auto) 0 % Neutrophils (%) (Auto) 61 42-75 % Lymphocytes (%) (Auto) 31 12-44 % Monocytes (%) (Auto) 6 0-12 % Eosinophils (%) (Auto) 1 0-10 % Basophils (%) (Auto) 1 0-10 % Neutrophils # (Auto) 4.0 1.8-7.8 10^3/uL Lymphocytes # (Auto) 2.0 1.0-4.0 10^3/uL Monocytes # (Auto) 0.4 0.0-1.0 10^3/uL Eosinophils # (Auto) 0.1 0.0-0.3 10^3/uL Basophils # (Auto) 0.0 0.0-0.1 10^3/uL Immature Granulocyte # (Auto) 0.0 0.0-0.1 10^3/uL Sodium Level 138 135-145 MMOL/L Potassium Level 3.5 L 3.6-5.0 MMOL/L Chloride Level 109 H 98-107 MMOL/L Carbon Dioxide Level 18 L 21-32 MMOL/L Anion Gap 11 5-14 MMOL/L Blood Urea Nitrogen 9 7-18 MG/DL Creatinine 0.75 0.60-1.30 MG/DL Estimat Glomerular Filtration Rate 106 BUN/Creatinine Ratio 12 Glucose Level 87 70-105 MG/DL Calcium Level 9.7 8.5-10.1 MG/DL Corrected Calcium 9.5 8.5-10.1 MG/DL Total Bilirubin 0.7 0.1-1.0 MG/DL Aspartate Amino Transf (AST/SGOT) 12 5-34 U/L Alanine Aminotransferase (ALT/SGPT) 7 0-55 U/L Alkaline Phosphatase 57 40-136 U/L Total Protein 8.3 H 6.4-8.2 GM/DL Albumin 4.2 3.2-4.5 GM/DL Lipase 7 L 8-78 U/L My Orders Orders - KD MENDIOLA Cbc With Automated Diff (08/07/21 17:10) Comprehensive Metabolic Panel (08/07/21 17:10) Lipase (08/07/21 17:10) Ketorolac Injection (Toradol Injection) (08/07/21 17:15) Iohexol Injection (Omnipaque 350 Mg/Ml 1 (08/07/21 17:45) Received Contrast (Hold Metformin- Contr (08/07/21 17:45) Ns (Ivpb) (Sodium Chloride 0.9% Ivpb Bag (08/07/21 17:45) Medications Given in ED Current Medications Medications Dose Ordered Sig/Mariaelena Route Start Time Stop Time Status Last Admin Dose Admin Ketorolac Tromethamine 30 mg ONCE ONCE IVP 08/07/21 17:15 08/07/21 17:16 DC 08/07/21 17:17 30 MG Vital Signs/I&O 08/07/21 17:01 Temp 36.8 Pulse 86 Resp 18 B/P (MAP) 140/113 (122) Pulse Ox 99 O2 Delivery Room Air Departure Communication (Admissions) Patient presents ED with abdominal pain for the past 2 days. Located to her mid upper abdominal. No vomiting or diarrhea. No urinary symptoms. Patient was given Toradol with complete resolution of pain. Lab work was reassuring. Patient refused CT scan of the abdomen pelvis. Patient pulled out her IV and was walking out the door. Stop the patient she states she is pain-free and requesting to be discharged. Patient lab work reassuring. However not able to obtain urine sample. She has no chest pain, cough, shortness of breath, vomiting, diarrhea. Residual right-sided weakness secondary to the stroke. She states she will return back to ED if symptoms worsen Impression Primary Impression: Abdominal pain Disposition: 01 HOME, SELF-CARE Condition: Stable Departure-Patient Inst. Decision time for Depature: 18:08 Referrals: [facility] (PCP/Family) Primary Care Physician Patient Instructions: Abdominal Pain, Adult ED KD MENDIOLA Aug 07, 2021 17:15
[2021-08-07 17:18] LABS: BASOPHILS % (AUTO) 1 % (0-10); EOSINOPHILS # (AUTO) 0.1 10^3/uL (0.0-0.3); EOSINOPHILS % (AUTO) 1 % (0-10); HEMATOCRIT 33 % (35-52); HEMOGLOBIN 10.7 g/dL (11.5-16.0); LYMPHOCYTES % (AUTO) 31 % (12-44); MEAN CORPUSCULAR HEMOGLOBIN 28 pg (25-34); MEAN CORPUSCULAR HGB CONC 32 g/dL (32-36); MEAN CORPUSCULAR VOLUME 87 fL (80-99); MEAN PLATELET VOLUME 10.3 fL (9.0-12.2); MONOCYTES # (AUTO) 0.4 10^3/uL (0.0-1.0); MONOCYTES % (AUTO) 6 % (0-12); NEUTROPHILS % (AUTO) 61 % (42-75); PLATELET COUNT 309 10^3/uL (130-400); WHITE BLOOD COUNT 6.5 10^3/uL (4.3-11.0)
[2021-08-07 17:30] LABS: ALBUMIN 4.2 GM/DL (3.2-4.5); POTASSIUM 3.5 MMOL/L (3.6-5.0)
[2021-08-07 17:31] LABS: CALCIUM 9.7 MG/DL (8.5-10.1)
[2021-08-07 17:33] LABS: TOTAL PROTEIN 8.3 GM/DL (6.4-8.2)
[2021-08-07 17:34] LABS: BILIRUBIN,TOTAL 0.7 MG/DL (0.1-1.0)
[2021-08-07 17:36] LABS: CREATININE SERUM 0.75 MG/DL (0.60-1.30)
[2021-08-07] MEDS ORDERED: IOHEXOL 350 MG/ML 100 ML (OMNIPAQUE 350) VIAL IV ONE (17:45)
[2021-08-07] MEDS ORDERED: NS 100 ML (IVPB) BAG IV ONE (17:45)
[2021-08-07] MEDS ORDERED: HOLD METFORMIN - RECEIVED CONTRAST 20 ML VIAL IV SCH (17:45)
== END 2021-08-07 18:16 | disposition home or self-care (01) ==
LOC: EDUNIT# 17:01 → ER 17:02
DX: R10.10 Upper abdominal pain, unspecified (principal)
CPT/HCPCS: 36415; 80053; 83690; 85025

== ENCOUNTER 2021-10-15 20:22 | Emergency (ER) | payer MEDICAID ==
[~2021-10-15] VITALS: Ht 172.7 cm; Wt 81.8 kg
[2021-10-15 20:22] VITALS: BP 136/92
[2021-10-15] MEDS ORDERED: CETI10TA17 (20:32)
[2021-10-15] MEDS ORDERED: ASPI-1238 (20:32)
[2021-10-15] MEDS ORDERED: ACHD5005 PO (20:40)
--- NOTE | 2021-10-15 20:42 | ED Lower Extremity ---
General Chief Complaint: Lower Extremity Stated Complaint: R KNEE PAIN Source: patient Exam Limitations: no limitations History of Present Illness Date Seen by Provider: October 15, 2021 Time Seen by Provider: 20:37 Initial Comments Patient is a 36-year-old female who presents ED with right knee pain. History of pain in the past. History of stroke with right-sided deficits. Has been taking ibuprofen without much improvement. Denies any swelling, bruising or re dness. Pain is described as more as dull and achy. Denies of any specific injury. Patient is requesting pain medication. She does not want any further work-up at this time. Patient came by EMS. Allergies and Home Medications Allergies Coded Allergies: shellfish derived (Verified Allergy, Unknown, 10/19/12) Patient Home Medication List Home Medication List Reviewed: Yes Aspirin (Aspirin EC) 81 Mg Tablet., (Reported) Entered as Reported by: MARJORIE ARZOLA on 10/15/212031 Last Action: New Order Cetirizine HCl (Cetirizine HCl) 10 Mg Tablet, (Reported) Entered as Reported by: MARJORIE ARZOLA on 10/15/212031 Last Action: New Order Hydrocodone/Acetaminophen (Hydrocodone-Acetamin 5-325 mg) 5 Mg-325 Mg Tablet, 1 TAB PO Q4H PRN for PAIN-MODERATE (5-7) Prescribed by: PASCUAL AVITIA on 10/15/212040 Discontinued Medications Acyclovir (Zovirax) 30 Gm Oint, 30 GM TP Q4H Discontinued Reason: No Longer Taking Prescribed by: GENIA VENEGAS on 03/24/16 0107 Last Action: Discontinued Amoxicillin (Amoxicillin) 500 Mg Capsule, 1,000 MG PO BID Discontinued Reason: No Longer Taking Prescribed by: MARTHA MEYERS on 07/27/16 0419 Last Action: Discontinued Butalb/Acetaminophen/Caffeine (Fioricet 50-300-40 mg Capsule) 1 Each Capsule, 1 EACH PO Q6H PRN for HEADACHE Discontinued Reason: No Longer Taking Prescribed by: OTILIO CORTES on 02/17/16 1425 Last Action: Discontinued Cephalexin (Cephalexin) 500 Mg Capsule, 500 MG PO TID Discontinued Reason: No Longer Taking Prescribed by: SCOTTY MARQUES on 03/20/16 1409 Last Action: Discontinued Cephalexin (Cephalexin) 500 Mg Capsule, 500 MG PO TID Discontinued Reason: No Longer Taking Prescribed by: OTILIO CORTES on 07/15/16 1844 Last Action: Discontinued Cephalexin (Cephalexin) 500 Mg Tablet, 500 MG PO TID Discontinued Reason: No Longer Taking Prescribed by: WHITNEY WEEKS on 10/22/202048 Last Action: Discontinued Clindamycin HCl (Clindamycin HCl) 300 Mg Capsule, 300 MG PO QID Discontinued Reason: No Longer Taking Prescribed by: GENIA VENEGAS on 09/27/19240 Last Action: Discontinued Diclofenac Sodium (Diclofenac Sodium) 75 Mg Tablet.dr, 75 MG PO DAILY, (Reported) Discontinued Reason: No Longer Taking Entered as Reported by: FRANNIE SESAY on 02/17/16 1330 Last Action: Discontinued Hydrocodone Bit/Acetaminophen (HYDROcodone/APAP 10/325 TABLET) 1 Each Tablet, 1 EACH PO Q6H PRN for PAIN, (Reported) Discontinued Reason: No Longer Taking Entered as Reported by: FRANNIE SESAY on 02/17/16 1330 Last Action: Discontinued Hydrocodone/Acetaminophen (Hydrocodone-Acetamin 5-325 mg) 1 Each Tablet, 1 TAB PO Q6H PRN for PAIN-MODERATE (5-7) Discontinued Reason: No Longer Taking Prescribed by: WHITNEY WEEKS on 10/22/202048 Last Action: Discontinued Hyoscyamine Sulfate (Levsin-Sl) 0.125 Mg Tab.subl, 0.25 MG SL Q4H Discontinued Reason: No Longer Taking Prescribed by: GENIA VENEGAS on 07/16/202156 Last Action: Discontinued Ketorolac Tromethamine (Ketorolac Tromethamine) 10 Mg Tablet, 10 MG PO Q6H Discontinued Reason: No Longer Taking Prescribed by: GENIA VENEGAS on 09/27/19240 Last Action: Discontinued L. Acidophilus/Pectin, [place] (Acidophilus Capsule) 1 Each Capsule, 2 EACH PO QID Discontinued Reason: No Longer Taking Prescribed by: GENIA VENEGAS on 07/16/202211 Last Action: Discontinued Lidocaine HCl (Lidocaine HCl Viscous) 15 Ml Solution, 1-2 ML MM [id number] Discontinued Reason: No Longer Taking Prescribed by: GENIA VENEGAS on 09/27/19240 Last Action: Discontinued Methylprednisolone (Medrol) 4 Mg Tab.ds.pk, 4 MG PO UD Discontinued Reason: No Longer Taking Prescribed by: GENIA VENEGAS on 03/24/16106 Last Action: Discontinued Mupirocin (Mupirocin) 1 Gm Oin.pf.[place], 1 GM TP TID Discontinued Reason: No Longer Taking Prescribed by: GENIA VENEGAS on 03/24/16106 Last Action: Discontinued Mupirocin Calcium (Mupirocin) 15 Gm Cream..g., 15 GM TP BID Discontinued Reason: No Longer Taking Prescribed by: SCOTTY MARQUES on 03/20/161408 Last Action: Discontinued Nitrofurantoin Monohyd/M-Cryst (Macrobid 100 mg Capsule) 100 Mg Capsule, 1 TAB PO BID Discontinued Reason: No Longer Taking Prescribed by: GENIA VENEGAS on 07/16/202157 Last Action: Discontinued Ondansetron (Ondansetron Odt) 4 Mg Tab.rapdis, 4 MG PO Q4H Discontinued Reason: No Longer Taking Prescribed by: GENIA VENEGAS on 07/16/202156 Last Action: Discontinued Sulfamethoxazole/Trimethoprim (Bactrim Ds Tablet) 1 Each Tablet, 1 EACH PO BID Discontinued Reason: No Longer Taking Prescribed by: SCOTTY MARQUES on 03/20/161408 Last Action: Discontinued Sulfamethoxazole/Trimethoprim (Bactrim Ds Tablet) 1 Each Tablet, 1 EACH PO BID Discontinued Reason: No Longer Taking Prescribed by: OTILIO CORTES on 07/15/16 1844 Last Action: Discontinued Sulfamethoxazole/Trimethoprim (Bactrim Ds Tablet) 1 Each Tablet, 1 EACH PO BID Discontinued Reason: No Longer Taking Prescribed by: MARTHA MEYERS on 01/28/17 0114 Last Action: Discontinued Tramadol HCl (Ultram) 50 Mg Tablet, 50 MG PO Q6H PRN for PAIN Discontinued Reason: No Longer Taking Prescribed by: MARTHA MEYERS on 07/27/16 0419 Last Action: Discontinued Valacyclovir HCl (Valtrex) 1,000 Mg Tablet, 1,000 MG PO TID Discontinued Reason: No Longer Taking Prescribed by: GENIA VENEGAS on 03/24/16106 Last Action: Discontinued Review of Systems Constitutional: No chills, No diaphoresis, No malaise, No weakness EENTM: No blurred vision, No double vision Respiratory: No cough, No dyspnea on exertion Cardiovascular: No chest pain Gastrointestinal: No abdominal pain, No diarrhea, No nausea, No vomiting Genitourinary: No decreased output, No discharge Musculoskeletal: No back pain; joint pain; No muscle pain, No muscle stiffness, No muscle cramps Skin: No change in color, No change in hair/nails Psychiatric/Neurological: Denies Anxiety All Other Systems Reviewed Negative Unless Noted: Yes Past Xmvjqls-Tywbtb-Fmmlfg Hx Patient Social History Tobacco Use?: Yes Substance use?: No Alcohol Use?: Yes Alcohol Frequency: Once in a while Pt feels they are or have been: No Immunizations Up To Date Tetanus Booster (TDap): Less than 5yrs PED Vaccines UTD: Yes Seasonal Allergies Seasonal Allergies: Yes Past Medical History Surgery/Hospitalization HX: stroke 2019, Surgeries: No Respiratory: Yes Asthma Cardiac: No Neurological: Yes (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 Cancer Physical Exam Vital Signs Vital Signs - First Documented 10/15/21 20:22 Temp 36.7 Pulse 76 Resp 16 B/P (MAP) 136/92 (107) Pulse Ox 99 O2 Delivery Room Air Capillary Refill : Height, Weight, BMI Height: 5'3" Weight: 232lbs. oz. 105.524855ea; 31.00 BMI Method:Stated General Appearance: WD/WN, no apparent distress HEENT: PERRL/EOMI, normal ENT inspection, TMs normal, pharynx normal Neck: non-tender, full range of motion, supple Cardiovascular: regular rate, rhythm, no edema, no gallop, no JVD Respiratory: chest non-tender, lungs clear, normal breath sounds, no respiratory distress, no accessory muscle use Gastrointestinal: normal bowel sounds, non tender, soft, no organomegaly Back: normal inspection, no CVA tenderness, no vertebral tenderness Knees: right knee pain (Right anterior knee tenderness.), right knee soft tissue tenderness, right knee other (Limited active range of motion secondary to to chronic weakness. Normal passive range of motion. No erythema, warmth, redness, or bruising. No calf or thigh tenderness.) Ankles: bilateral ankle non-tender, bilateral ankle normal inspection Skin: normal color, warm/dry Progress/Results/Core Measures Results/Orders My Orders Orders - KD MENDIOLA Hydrocodone/Apap 5/325 Tablet (Lortab 5 (10/15/21 20:45) Medications Given in ED Current Medications Medications Dose Ordered Sig/Mariaelena Route Start Time Stop Time Status Last Admin Dose Admin Acetaminophen/ Hydrocodone Bitart 1 ea ONCE ONCE PO 10/15/21 20:45 10/15/21 20:46 DC 10/15/21 20:45 1 EA Vital Signs/I&O 10/15/21 20:22 Temp 36.7 Pulse 76 Resp 16 B/P (MAP) 136/92 (107) Pulse Ox 99 O2 Delivery Room Air Departure Communication (PCP) Patient is a 36-year-old female with a history of stroke with right sided deficits who presents ED with right knee pain. She reports pain for several months. Denies of any specific injury. No calf pain, thigh pain. No swelling, erythema or ecchymosis. Appropriate range of motion. She refused x-ray was requesting pain medication. Discussed potential risk of a possible fracture. She acknowledges. Patient has been taken Tylenol ibuprofen without much improvement. Patient was given a few days worth of stronger pain medication but take diligently. Return precaution were discussed with patient. Impression Primary Impression: Knee pain Disposition: 01 HOME, SELF-CARE Condition: Stable Departure-Patient Inst. Decision time for Depature: 20:40 Referrals: [facility] (PCP/Family) Primary Care Physician FLOYD POPE MD Patient Instructions: Knee Pain (DC) Scripts Hydrocodone/Acetaminophen (Hydrocodone-Acetamin 5-325 mg) 5 Mg-325 Mg Tablet 1 TAB PO Q4H PRN for PAIN-MODERATE (5-7), #6 TAB Prov: KD MENDIOLA 10/15/21 KD MENDIOLA October 15, 2021 20:41
[2021-10-15] MEDS ORDERED: HYDROcodone/APAP 5 MG/325 MG (LORTAB) TAB PO ONE (20:45)
== END 2021-10-15 20:48 | disposition home or self-care (01) ==
LOC: EDUNIT# 20:22 → ER 20:29
DX: M25.561 Pain in right knee (principal)
CPT/HCPCS: 99283

== ENCOUNTER 2021-12-18 23:05 | Emergency (ER) | payer MEDICAID ==
[~2021-12-18 23:05] MED LIST changes: +ASPI-1238; +CETI10TA17
[2021-12-19 00:11] LABS: BASOPHILS % (AUTO) 1 % (0-10); EOSINOPHILS # (AUTO) 0.1 10^3/uL (0.0-0.3); EOSINOPHILS % (AUTO) 2 % (0-10); HEMATOCRIT 30 % (35-52); HEMOGLOBIN 9.6 g/dL (11.5-16.0); LYMPHOCYTES % (AUTO) 32 % (12-44); MEAN CORPUSCULAR HEMOGLOBIN 27 pg (25-34); MEAN CORPUSCULAR HGB CONC 32 g/dL (32-36); MEAN CORPUSCULAR VOLUME 87 fL (80-99); MONOCYTES # (AUTO) 0.3 10^3/uL (0.0-1.0); MONOCYTES % (AUTO) 5 % (0-12); NEUTROPHILS # (AUTO) 3.8 10^3/uL (1.8-7.8); NEUTROPHILS % (AUTO) 61 % (42-75); PLATELET COUNT 292 10^3/uL (130-400); WHITE BLOOD COUNT 6.3 10^3/uL (4.3-11.0)
[2021-12-19 00:19] LABS: ALBUMIN 3.9 GM/DL (3.2-4.5); CHLORIDE 107 MMOL/L (98-107); POTASSIUM 3.3 MMOL/L (3.6-5.0); SODIUM 142 MMOL/L (135-145)
[2021-12-19 00:21] LABS: GLUCOSE 99 MG/DL (70-105)
[2021-12-19 00:22] LABS: TOTAL PROTEIN 7.5 GM/DL (6.4-8.2)
[2021-12-19 00:23] LABS: BILIRUBIN,TOTAL 0.3 MG/DL (0.1-1.0); CARBON DIOXIDE 24 MMOL/L (21-32)
[2021-12-19 00:25] LABS: ALKALINE PHOSPHATASE 65 U/L (40-136); CREATININE SERUM 0.77 MG/DL (0.60-1.30); GFR ESTIMATED 103
[2021-12-19 00:26] LABS: BUN/CREATININE RATIO 13
[2021-12-19 00:28] LABS: ALANINE AMINOTRANSFERASE 6 U/L (0-55); INR 0.9 (0.8-1.4); PROTHROMBIN TIME PATIENT 12.8 SEC (12.2-14.7)
--- NOTE | 2021-12-19 00:37 | ED Neurological Problem ---
General Chief Complaint: Neuro-Stroke Like Symptoms Stated Complaint: STROKE Source: patient, EMS, old records Exam Limitations: clinical condition (expressive aphasia) History of Present Illness Date Seen by Provider: Dec 18, 2021 Time Seen by Provider: 23:07 Initial Comments This 36 year old woman presents to the ER via EMS with acute headache and decreases responsiveness. Patient self reports last known will time of 17:00 when headache developed. EMS and police report patient was walking about her residence but not communicating when they arrived. Apparently, MAGALI expressed concern that she was no herself based on prior interactions with her. About 10 minutes in to transport she began interacting with EMS at what is presumed to be baseline neurological function. Patient has chronic expressive aphasia and right sided paralysis due to prior stroke. Patient reports feeling better now and back to baseline. BS was 122 for EMS. Allergies and Home Medications Allergies Coded Allergies: shellfish derived (Verified Allergy, Unknown, 10/19/12) Patient Home Medication List Home Medication List Reviewed: Yes Aspirin (Aspirin EC) 81 Mg Tablet., (Reported) Entered as Reported by: MARJORIE ARZOLA on 10/15/212031 Cetirizine HCl (Cetirizine HCl) 10 Mg Tablet, (Reported) Entered as Reported by: MARJORIE ARZOLA on 10/15/212031 Hydrocodone/Acetaminophen (Hydrocodone-Acetamin 5-325 mg) 5 Mg-325 Mg Tablet, 1 TAB PO Q4H PRN for PAIN-MODERATE (5-7) Prescribed by: PASCUAL AVITIA on 10/15/212040 Review of Systems Review of Systems Constitutional: no symptoms reported Eyes: No Symptoms Reported Ears, Nose, Mouth, Throat: no symptoms reported Respiratory: no symptoms reported Cardiovascular: no symptoms reported Gastrointestinal: no symptoms reported Genitourinary: no symptoms reported : No Musculoskeletal: no symptoms reported Skin: no symptoms reported Psychiatric/Neurological: See HPI Endocrine: No Symptoms Reported Hematologic/Lymphatic: No Symptoms Reported Past Nslxdwj-Vidfiu-Zjluut Hx Patient Social History Tobacco Use?: Yes Tobacco type used: Cigarettes Substance use?: Yes (prior positive drug screens) Substance type: Methamphetamine, Marijuana Immunizations Up To Date Tetanus Booster (TDap): Less than 5yrs PED Vaccines UTD: Yes Seasonal Allergies Seasonal Allergies: Yes Past Medical History Surgery/Hospitalization HX: stroke 2019, Surgeries: Yes (craniotomy related to stroke, details unknown) Respiratory: Yes Asthma Cardiac: No Neurological: Yes (CVA WITH RIGHT SIDE WEAKNESS/CONTRACTURES OF RIGHT ARM + EXPRESSIVE APHASIA) Headaches /Migraines, Stroke : No Reproductive Disorders: No Female Reproductive Disorders: Denies Genitourinary: No Gastrointestinal: No Musculoskeletal: Yes (B carpel tunnel, RLE comp synd, RUE contractures) Contracture Endocrine: No HEENT: Yes (DENTAL CARIES/CHRONIC DENTAL ISSUES) Cancer: No Psychosocial: Yes (SUBSTANCE ABUSE) Anxiety, Depression Integumentary: Yes (CELLULITIS) Eczema Blood Disorders: No Family Medical History Patient reports no known family medical history. Cancer Physical Exam Vital Signs Vital Signs - First Documented 12/18/21 23:25 Temp 36.4 Pulse 85 Resp 16 B/P (MAP) 147/93 (111) Pulse Ox 99 O2 Delivery Room Air Capillary Refill : Height, Weight, BMI Height: 5'3" Weight: 232lbs. oz. 105.942748lt; 27.00 BMI Method:Stated General Appearance: WD/WN, no apparent distress HEENT: PERRL/EOMI, normal ENT inspection Neck: normal inspection Respiratory: lungs clear, normal breath sounds, no respiratory distress Cardiovascular: regular rate, rhythm, no edema, no murmur Gastrointestinal: non tender, soft; No distended Extremities: normal inspection, no pedal edema Neurologic/Psychiatric: alert, normal mood/affect Crainal Nerves: PERRL, abnormal speech Progress/Results/Core Measures Results/Orders Lab Results Laboratory Tests Test 12/19/21 00:00 12/19/21 00:09 Range/Units White Blood Count 6.3 4.3-11.0 10^3/uL Red Blood Count 3.51 L 3.80-5.11 10^6/uL Hemoglobin 9.6 L 11.5-16.0 g/dL Hematocrit 30 L 35-52 % Mean Corpuscular Volume 87 80-99 fL Mean Corpuscular Hemoglobin 27 25-34 pg Mean Corpuscular Hemoglobin Concent 32 32-36 g/dL Red Cell Distribution Width 15.8 H 10.0-14.5 % Platelet Count 292 130-400 10^3/uL Mean Platelet Volume 11.0 9.0-12.2 fL Immature Granulocyte % (Auto) 0 % Neutrophils (%) (Auto) 61 42-75 % Lymphocytes (%) (Auto) 32 12-44 % Monocytes (%) (Auto) 5 0-12 % Eosinophils (%) (Auto) 2 0-10 % Basophils (%) (Auto) 1 0-10 % Neutrophils # (Auto) 3.8 1.8-7.8 10^3/uL Lymphocytes # (Auto) 2.0 1.0-4.0 10^3/uL Monocytes # (Auto) 0.3 0.0-1.0 10^3/uL Eosinophils # (Auto) 0.1 0.0-0.3 10^3/uL Basophils # (Auto) 0.0 0.0-0.1 10^3/uL Immature Granulocyte # (Auto) 0.0 0.0-0.1 10^3/uL Prothrombin Time 12.8 12.2-14.7 SEC INR Comment 0.9 0.8-1.4 Activated Partial Thromboplast Time 26 24-35 SEC D-Dimer 0.48 0.00-0.49 UG/ML Sodium Level 142 135-145 MMOL/L Potassium Level 3.3 L 3.6-5.0 MMOL/L Chloride Level 107 98-107 MMOL/L Carbon Dioxide Level 24 21-32 MMOL/L Anion Gap 11 5-14 MMOL/L Blood Urea Nitrogen 10 7-18 MG/DL Creatinine 0.77 0.60-1.30 MG/DL Estimat Glomerular Filtration Rate 103 BUN/Creatinine Ratio 13 Glucose Level 99 70-105 MG/DL Calcium Level 9.0 8.5-10.1 MG/DL Corrected Calcium 9.1 8.5-10.1 MG/DL Total Bilirubin 0.3 0.1-1.0 MG/DL Aspartate Amino Transf (AST/SGOT) 10 5-34 U/L Alanine Aminotransferase (ALT/SGPT) 6 0-55 U/L Alkaline Phosphatase 65 40-136 U/L Troponin I < 0.028 <0.028 NG/ML Total Protein 7.5 6.4-8.2 GM/DL Albumin 3.9 3.2-4.5 GM/DL Serum Test, Qualitative NEGATIVE NEGATIVE Serum Alcohol < 10 <10 MG/DL Glucometer 111 H 70-110 MG/DL My Orders Orders - MARTHA ESCOBAR MD Cbc With Automated Diff (12/18/21 23:21) Protime With Inr (12/18/21 23:) Partial Thromboplastin Time (12/18/21 23:21) Comprehensive Metabolic Panel (12/18/21 23:) Fibrin Degradation Products (12/18/21:) Troponin I Jacob (12/18/21 23:21) Chest 1 View, Ap/Pa Only (12/18/21 23:21) Ekg Tracing (12/18/21 23:) Accucheck Stat ONCE (12/18/21 23:) Ed Iv/Invasive Line Start (12/18/21 23:21) Ed Iv/Invasive Line Start (12/18/21 23:21) Vital Signs Stroke Patient Q15M (12/18/21 23:21) Ct Head Wo-R/O Stroke (12/18/21 23:) O2 (12/18/21 23:) Intake & Output 06,14,22 (12/18/21 23:) Monitor-Rhythm Ecg Trace Only (12/18/21 23:) Dysphagia Screening Tool Q10MX1 (12/18/21 23:) Alcohol (12/18/21 23:) Hcg,Qualitative Serum (12/18/21 23:24) Vital Signs/I&O 12/18/21 12/19/21 23:25 01:48 Temp 36.4 36.4 Pulse 85 71 Resp 16 16 B/P (MAP) 147/93 (111) 123/98 Pulse Ox 99 100 O2 Delivery Room Air Room Air FSBG Bedside Testing Finger Stick Blood Glucose: 111 Progress Progress Note : Progress Note Stroke activation paged based on symptoms reported by EMS (who also reported transient facial droop). Initial CT head demonstrated no acute changes. Communication of work-up results and completion of work-up was protracted due to volume of time sensitive cases in the ED. Patient had reported being back to baseline condition and therefore did not wish to stay and discuss findings and next steps with the physician. She signed out AMA. Initial ECG Impression Date: Dec 18, 2021 Initial ECG Impression Time: 23:34 Initial ECG Rate: 79 Initial ECG Rhythm: Normal Sinus Initial ECG Intervals: Normal Initial ECG Impression: Normal Comment NSR with no ST elevation or depression. No abnormal intervals or axis deviation. Diagnostic Imaging Diagonstic Imaging: CT Plain Films/CT/US/NM/MRI: head Comments NAME: EVERT LARKIN [facility] REC#: [id number] PT STATUS: DEP ER : 1985 PHYSICIAN: MARTHA ESCOBAR MD ADMIT DATE: 12/18/21/ER Signed Date of Exam:12/18/21 CT HEAD WO-R/O STROKE PROCEDURE: CT head wo r/o stroke. TECHNIQUE: Multiple contiguous axial images were obtained through the brain without the use of intravenous contrast. Auto Exposure Controls were utilized during the CT exam to meet ALARA standards for radiation dose reduction. INDICATION: Altered mental status, headache COMPARISON: 07/19/2014 FINDINGS: There is severe encephalomalacia in the left hemisphere. Postsurgical changes from prior craniotomy are noted. No acute intracranial hemorrhage is seen. There is no CT evidence of acute territorial ischemia. There is no significant midline shift. There is ex vacuo dilatation of the left lateral ventricle. The calvarium demonstrates no acute fractures. Visualized paranasal sinuses are clear. IMPRESSION: 1. No acute intracranial hemorrhage or CT evidence of acute territorial ischemia. 2. Left craniotomy changes with marked encephalomalacia in the left hemisphere. Findings discussed with MARTHA ESCOBAR MD by the overnight radiology service, on 12/19/2021 12:00 AM. No significant changes from the preliminary report. Dictated by: Dictated on workstation # [id number] Dict: 12/19/21 0745 Trans: 12/19/21 1134 [facility] [id number] Interpreted by: TIFFANY MAST MD Electronically signed by: TIFFANY MATS MD 12/19/21 1134 Departure Impression Primary Impression: Altered mental status Qualified Codes: R41.82 - Altered mental status, unspecified Additional Impression: Left against medical advice Disposition: AGAINST MEDICAL ADVICE Condition: Against Medical Advice Departure-Patient Inst. Referrals: [facility] (PCP/Family) Primary Care Physician Copy Copies To 1: [facility]/MARTHA HAYWARD MD Dec 19, 2021 00:37
[2021-12-19 01:48] VITALS: BP 123/98
[2021-12-19 02:16] LABS: FIBRIN DEGRADATION PRODUCTS 0.48 UG/ML (0.00-0.49)
--- NOTE | 2021-12-19 07:40 | Diagnostic Imaging Report ---
History: Altered mental status, headache, history of stroke TECHNIQUE: Frontal view the chest COMPARISON: None FINDINGS: Lung volumes are normal. No consolidation is seen. There is no pleural effusion or pneumothorax. The cardiac silhouette is normal in size. IMPRESSION: 1. No acute pulmonary abnormality. Dictated by: Dictated on workstation # [id number]
--- NOTE | 2021-12-19 07:57 | Diagnostic Imaging Report ---
PROCEDURE: CT head wo r/o stroke. TECHNIQUE: Multiple contiguous axial images were obtained through the brain without the use of intravenous contrast. Auto Exposure Controls were utilized during the CT exam to meet ALARA standards for radiation dose reduction. INDICATION: Altered mental status, headache COMPARISON: 07/19/2014 FINDINGS: There is severe encephalomalacia in the left hemisphere. Postsurgical changes from prior craniotomy are noted. No acute intracranial hemorrhage is seen. There is no CT evidence of acute territorial ischemia. There is no significant midline shift. There is ex vacuo dilatation of the left lateral ventricle. The calvarium demonstrates no acute fractures. Visualized paranasal sinuses are clear. IMPRESSION: 1. No acute intracranial hemorrhage or CT evidence of acute territorial ischemia. 2. Left craniotomy changes with marked encephalomalacia in the left hemisphere. Findings discussed with MARTHA ESCOBAR MD by the overnight radiology service, on 12/19/2021 12:00 AM. No significant changes from the preliminary report. Dictated by: Dictated on workstation # [id number]
== END 2021-12-19 01:48 | disposition left against medical advice (07) ==
LOC: EDUNIT# 23:05 → ER 23:07
DX: R41.82 Altered mental status, unspecified (principal); F17.210 Nicotine dependence, cigarettes, uncomplicated; Z28.310 Unvaccinated for COVID-19
CPT/HCPCS: 36415; 70450; 71045; 80053; 80320; 82947; 84484; 84703; 85025; 85379; 85610; 85730; 93005; 93041

== ENCOUNTER 2022-01-02 22:24 | Emergency (ER) | payer MEDICAID ==
[~2022-01-02] VITALS: Ht 160 cm; Wt 81.8 kg
--- NOTE | 2022-01-02 22:49 | ED Upper Extremity ---
General Chief Complaint: Upper Extremity Stated Complaint: L SHOULDER PAIN Nursing Triage Note: brought in by [facility] c/o left lateral shoulder pain x3 days. denies injury. Source: patient (PT WITH EXPRESSIVE APHASIA FROM PRIOR CVA) History of Present Illness Date Seen by Provider: Jan 02, 2022 Time Seen by Provider: 22:38 Initial Comments PT ARRIVES VIA EMS FROM HOME C/O LEFT SHOULDER PAIN X 3 DAYS NO KNOWN INJURY OR UNUSUAL ACTIVITY NO SWELLING NO PARESTHESIAS OR MOTOR DEFICITS HURTS TO MOVE OR TOUCH NO CHEST PAIN NO NECK OR BACK PAIN NO SHORTNESS OF BREATH TOOK 2 TYLENOL 2 HOURS AGO, WITHOUT RELIEF PT HAS HAD PRIOR CVA WITH RIGHT SIDE WEAKNESS AND EXPRESSIVE APHASIA NO PRIOR PROBLEMS WITH LEFT SHOULDER Allergies and Home Medications Allergies Coded Allergies: shellfish derived (Verified Allergy, Unknown, 10/19/12) Patient Home Medication List Aspirin (Aspirin EC) 81 Mg Tablet., (Reported) Entered as Reported by: MARJORIE ARZOLA on 10/15/212031 Cetirizine HCl (Cetirizine HCl) 10 Mg Tablet, (Reported) Entered as Reported by: MARJORIE ARZOLA on 10/15/212031 Discontinued Medications Hydrocodone/Acetaminophen (Hydrocodone-Acetamin 5-325 mg) 5 Mg-325 Mg Tablet, 1 TAB PO Q4H PRN for PAIN-MODERATE (5-7) Discontinued Reason: No Longer Taking Prescribed by: PASCUAL AVITIA on 10/15/212040 Last Action: Discontinued Review of Systems Constitutional: no symptoms reported Respiratory: no symptoms reported Cardiovascular: no symptoms reported Gastrointestinal: no symptoms reported Musculoskeletal: see HPI Skin: no symptoms reported Psychiatric/Neurological: See HPI, Pre-Existing Deficit Past Qynxnsx-Zkcpkt-Nsynjn Hx Patient Social History Tobacco Use?: Yes Tobacco type used: Cigarettes Smoking Status: Current Everyday Smoker Substance use?: Yes Substance type: Methamphetamine, Marijuana Alcohol Use?: No Pt feels they are or have been: No Immunizations Up To Date Tetanus Booster (TDap): Less than 5yrs PED Vaccines UTD: Yes Seasonal Allergies Seasonal Allergies: Yes Past Medical History Surgery/Hospitalization HX: stroke 2019 right arm contractured/weak, right leg weakness, expressive asphasia, headache, anxiety/depression crainiotomy, bilateral carpel tunnel Surgeries: Yes (craniotomy related to stroke, details unknown) Neurological, Orthopedic Respiratory: Yes Asthma Cardiac: No Neurological: Yes (CVA WITH RIGHT SIDE WEAKNESS/CONTRACTURES OF RIGHT ARM + EXPRESSIVE APHASIA) Headaches /Migraines, Stroke Reproductive Disorders: No Female Reproductive Disorders: Denies Genitourinary: No Gastrointestinal: No Musculoskeletal: Yes (B carpel tunnel, RLE comp synd, RUE contractures) Contracture Endocrine: No HEENT: Yes (DENTAL CARIES/CHRONIC DENTAL ISSUES) Cancer: No Psychosocial: Yes (SUBSTANCE ABUSE) Anxiety, Depression Integumentary: Yes (CELLULITIS) Eczema Blood Disorders: No Family Medical History Patient reports no known family medical history. Cancer Physical Exam Vital Signs Vital Signs - First Documented 01/02/22 22:26 Temp 36.6 Pulse 79 Resp 16 B/P (MAP) 149/95 (113) Pulse Ox 100 O2 Delivery Room Air Capillary Refill : Less Than 3 Seconds Height, Weight, BMI Height: 5'3" Weight: 232lbs. oz. 105.261887wj; 31.00 BMI Method:Stated General Appearance: WD/WN, no apparent distress, other (VERY EXAGGERATED PAIN RESPONSE) Neck: non-tender, full range of motion, supple, normal inspection Cardiovascular: normal peripheral pulses, regular rate, rhythm Respiratory: chest non-tender, normal breath sounds Back: normal inspection, no CVA tenderness, no vertebral tenderness Shoulder: no evidence of injury, bone tenderness, limited ROM, pain, soft tissue tenderness Elbow/Forearm: normal inspection, non-tender, no evidence of injury, normal ROM Wrist: Yes normal inspection, Yes non-tender, Yes no evidence of injury, Yes normal ROM Hand: normal inspection, non-tender, no evidence of injury, normal ROM Neurologic/Tendon: normal sensation, normal motor functions, normal tendon functions, other (TO LEFT ARM. 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 Decision time for Depature: 23:10 Referrals: [facility] (PCP/Family) Primary Care Physician Patient Instructions: Shoulder Pain ED Add. Discharge Instructions: ALTERNATE ICE AND HEAT TO AREA AT 20 MINUTE INTERVALS FOLLOW UP WITH FARHAN IZQUIERDO IN 4-5 DAYS FOR FURTHER CARE. CALL IN THE MORNING TO SCHEDULE APPOINTMENT. All discharge instructions reviewed with patient and/or family. Voiced understanding. Scripts Meloxicam (Meloxicam) 15 Mg Tablet 15 MG PO DAILY, #10 TAB Prov: GENIA VENEGAS DO 01/02/22 Diclofenac Sodium (Voltaren Arthritis Pain) 1 % Gel..gram. 20 GM TP QID, #1 EA Prov: GENIA VENEGAS DO 01/02/22 GENIA VENEGAS DO Jan 02, 2022 22:49
[2022-01-02] MEDS ORDERED: DICL20GE TP (23:18)
[2022-01-02] MEDS ORDERED: RX-NAPROXEN (NAPROSYN) 250 MG TAB PPK#4 PO STA (23:18)
[2022-01-02] MEDS ORDERED: MELO15TA39 PO (23:18)
[2022-01-02 23:35] VITALS: BP 137/87
--- NOTE | 2022-01-03 08:13 | Diagnostic Imaging Report ---
INDICATION: Pain EXAMINATION: Left shoulder 01/02/2022 3 views left shoulder FINDINGS: There is no evidence for an acute fracture or dislocation. The joint spaces are well maintained. There is no significant soft tissue swelling. IMPRESSION: No acute process. Dictated by: Dictated on workstation # [id number]
== END 2022-01-02 23:35 | disposition home or self-care (01) ==
LOC: EDUNIT# 22:24 → ER 22:26
DX: M25.512 Pain in left shoulder (principal); R47.01 Aphasia; M62.81 Muscle weakness (generalized); M62.421 Contracture of muscle, right upper arm; F17.210 Nicotine dependence, cigarettes, uncomplicated; Z86.73 Personal history of transient ischemic attack (TIA), and cerebral infarction without residual deficits
CPT/HCPCS: 73030